=== PATIENT | male | born 1950 | race Caucasian/White ===

== ENCOUNTER 2018-11-07 12:05 | Inpatient (IN) | payer MEDICARE, OTHER ==
[~2018-11-07] VITALS: Ht 172.7 cm; Wt 69.1 kg
[2018-11-07] VITALS (12 sets, daily range): BP systolic 62–108; BP diastolic 38–53
--- NOTE | 2018-11-07 12:05 | NUR ---
ED Nurse Note: Pt brought in by ambulance from [facility] due to hypotension of SBP 60. Per EMS pt was also sating around 88% in the residential then pt vomited. Pt is trach dependent. Pt is awake but with flat affect. Mild respiratory distress noted with increased effort in breathing. Observed distended abdomen with G tube in place.
--- NOTE | 2018-11-07 12:07 | NUR ---
Pt came in from facility due to desaturation and vomiting. Placed pt on AC 14 400 100% +5 per previous settings. Pt has copious amounts of secretions and needs frequent sxn. Will continue to monitor.
--- NOTE | 2018-11-07 12:07 | NUR ---
Pt came in due to desaturation and vomiting. Placed pt on same vent settings as facility and increased FiO2 100%, Pt currently on AC 12 400 100% =%. Pt has copious secretions and needs frequent sxn. Will continue to monitor. Addendum: 11/07/18 at 1420 by LORENA GARZA RT Amended: Links added.
--- NOTE | 2018-11-07 12:35 | Emergency Room Report ---
History of Present Illness General Chief Complaint: Altered Level of Consciousness Present Illness HPI Disclaimer: Please note that this report is being documented using DRAGON technology. This can lead to erroneous entry secondary to incorrect interpretation by the dictating instrument. HPI: This is a 68-year-old male with a history of chronic respiratory failure status post tracheostomy, dysphagia status post G-tube, anemia, alcohol abuse presenting from his nursing facility for evaluation of hypoxia and vomiting. Patient was reported to have desaturated on his ventilator today to the mid 80s. He also had an episode of emesis and appears to have distended abdomen. The patient is nonverbal. They note some decreased alertness and change in his mental status there is unclear what his baseline mentation is. No prior admissions at this facility. PMH: Respiratory failure, dysphagia, anemia, alcohol abuse noted on transfer paperwork PSH: Tracheostomy, gastrostomy Allergies: None listed Social Hx: History of alcohol abuse noted in transfer paperwork Allergies: Coded Allergies: No Known Allergies (Unverified , 11/07/18) Review of Systems All Other Systems: limited - Cannot obtain due to clinical condition Physical Exam Vital Signs Date Time Temp Pulse Resp B/P (MAP) Pulse Ox O2 Delivery O2 Flow Rate FiO2 11/07/18 11:55 116 28 72/42 (52) 72 Mechanical Ventilator 11/07/18 12:05 97.1 11/07/18 12:05 100 General: Lethargic, no verbal responses, hypotensive and tachycardic HEENT: NC/AT. Pupils are equal, round, reactive bilaterally. No gaze deviation. Very dry mucous membranes. Neck: Trach in place with purulent secretions in the tubing. No surrounding bleeding or erythema Cardiovascular: Tachycardic. S1 and S2 normal. No murmur appreciated Resp: Purulent secretions in ventilator tubing. Coarse rhonchi in all lung turner. Tachypnea, respiratory rate in the 30s Abdomen: Abdomen is distended. No fluid wave. G-tube in place without surrounding leakage or bleeding. Skin: Intact. No abrasions, laceration or rash over the exposed skin MSK: No obvious deformity. Neuro: GCS 6 Procedures Critical Care Time Critical Care Time Total critical care time: Approximately 45 minutes Due to a high probability of clinically significant, life threatening deterioration, the patient required the highest level of preparedness to intervene emergently and I personally spent this critical care time directly and personally managing the patient. This critical care time included obtaining a history, examining the patient, pulse oximetry, ordering and reviewing studies , ordering treatments, evaluating response to treatment and updating management plan as needed, frequent reassessment and discussion with other providers as well as arranging for ultimate disposition. This critical to care time was performed to assess and manage the high probability of life-threatening deterioration that could result in multiorgan failure. This critical care time is separate from the separately billable procedures and treating other patients. Medical Decision Making Diagnostic Impression: Primary Impression: Sepsis Additional Impressions: Pneumonia Acidosis Respiratory failure AMS (altered mental status) Anemia ER Course 68-year-old trach dependent G-tube dependent male presents from nursing facility for evaluation of altered mental status, hypoxia and vomiting. He arrives tachycardic and hypotensive but afebrile. Differential includes but is not limited to septic shock, pneumonia, bronchitis, CHF exacerbation, COPD, ACS , abdominal obstruction, intra-abdominal infection such as abscess, viral syndrome, mucous plug, pneumothorax. We will start broad work-up with sepsis fluids and monitor closely for responsiveness. He will be treated empirically with IV antibiotics, cultures sent, broad lab work and will send for CT scan of the head and of the torso given concern for both an infective process in the chest and also possible obstruction or infection in the abdomen. He will require admission to the ICU Laboratory Tests Test 11/07/18 12:00 11/07/18 12:24 11/07/18 12:30 White Blood Count 14.7 K/UL (4.8-10.8) H Red Blood Count 3.26 M/UL (4.70-6.10) L Hemoglobin 9.7 G/DL (14.2-18.0) L Hematocrit 30.5 % (42.0-52.0) L Mean Corpuscular Volume 94 FL (80-99) Mean Corpuscular Hemoglobin 29.8 PG (27.0-31.0) Mean Corpuscular Hemoglobin Concent 31.8 G/DL (32.0-36.0) L Red Cell Distribution Width 15.1 % (11.6-14.8) H Platelet Count 501 K/UL (150-450) H Mean Platelet Volume 5.3 FL (6.5-10.1) L Neutrophils (%) (Auto) % (45.0-75.0) Lymphocytes (%) (Auto) % (20.0-45.0) Monocytes (%) (Auto) % (1.0-10.0) Eosinophils (%) (Auto) % (0.0-3.0) Basophils (%) (Auto) % (0.0-2.0) Differential Total Cells Counted 100 Neutrophils % (Manual) 84 % (45-75) H Lymphocytes % (Manual) 6 % (20-45) L Monocytes % (Manual) 9 % (1-10) Eosinophils % (Manual) 0 % (0-3) Basophils % (Manual) 0 % (0-2) Band Neutrophils 1 % (0-8) Platelet Estimate Increased H Platelet Morphology Normal Anisocytosis 1+ Prothrombin Time 10.9 SEC (9.30-11.50) Prothrombin Time INR 1.0 (0.9-1.1) PTT 35 SEC (23-33) H Sodium Level 141 MMOL/L (136-145) Potassium Level 4.4 MMOL/L (3.5-5.1) Chloride Level 102 MMOL/L (98-107) Carbon Dioxide Level 35 MMOL/L (21-32) H Anion Gap 4 mmol/L (5-15) L Blood Urea Nitrogen 21 mg/dL (7-18) H Creatinine 1.2 MG/DL (0.55-1.30) Estimate Glomerular Filtration Rate 59.9 mL/min (>60) Glucose Level 185 MG/DL (74-106) H Lactic Acid Level 2.40 mmol/L (0.4-2.0) H Calcium Level 8.1 MG/DL (8.5-10.1) L Phosphorus Level 5.6 MG/DL (2.5-4.9) H Magnesium Level 1.9 MG/DL (1.8-2.4) Total Bilirubin 0.7 MG/DL (0.2-1.0) Aspartate Amino Transferase (AST) 25 U/L (15-37) Alanine Aminotransferase (ALT) 22 U/L (12-78) Alkaline Phosphatase 84 U/L (46-116) Total Creatine Kinase 21 U/L (26-308) L Creatine Kinase MB 1.3 NG/ML (0.0-3.6) Creatine Kinase MB Relative Index 6.1 Troponin I 0.001 ng/mL (0.000-0.056) Pro-B-Type Natriuretic Peptide 4640 pg/mL (0-125) H Total Protein 6.3 G/DL (6.4-8.2) L Albumin 1.7 G/DL (3.4-5.0) L Globulin 4.6 g/dL Albumin/Globulin Ratio 0.4 (1.0-2.7) L Arterial Blood pH 7.095 (7.350-7.450) Arterial Blood Partial Pressure CO2 118.0 mmHg (35.0-45.0) *H Arterial Blood Partial Pressure O2 63.1 mmHg (75.0-100.0) L Arterial Blood HCO3 35.4 mmol/L (22.0-26.0) H Arterial Blood Oxygen Saturation 86.2 % (95-100) *L Arterial Blood Base Excess 3.7 (-2-2) H Pawan Test Positive Urine Color Yellow Urine Appearance Clear Urine pH 5 (4.5-8.0) Urine Specific Wray 1.020 (1.005-1.035) Urine Protein 3+ (NEGATIVE) H Urine Glucose (UA) Negative (NEGATIVE) Urine Ketones Negative (NEGATIVE) Urine Blood Negative (NEGATIVE) Urine Nitrite Negative (NEGATIVE) Urine Bilirubin Negative (NEGATIVE) Urine Urobilinogen 1 MG/DL (0.0-1.0) H Urine Leukocyte Esterase 1+ (NEGATIVE) H Urine RBC 2-4 /HPF (0 - 0) H Urine WBC 0-2 /HPF (0 - 0) Urine Squamous Epithelial Cells Occasional /LPF Urine Amorphous Sediment Occasional /LPF (NONE) Urine Bacteria Few /HPF (NONE) EKG Diagnostic Results EKG Time: 12:09 Rate: tachycardiac Rhythm: NSR ST Segments: no acute changes Other Impression Sinus tachycardia, normal axis, slightly prolonged QTC at [address] segment changes Rhythm Strip Diag. Results Rhythm Strip Time: 12:09 EP Interpretation: yes Rate: 100s Rhythm: NSR, no PVC's, no ectopy Chest X-Ray Diagnostic Results Chest X-Ray Diagnostic Results : # of Views/Limited/Complete: 1 View Indication: Shortness of Breath EP Interpretation: Yes Interpretation: other - Diffuse infiltrate in the right lung Impression: Other - Right sided infiltrate concerning for pneumonia with possible effusion Electronically Signed by: Electronically signed by Dr. Varun Villarreal Reevaluation Time: 13:37 Last Vital Signs Date Time Temp Pulse Resp B/P (MAP) Pulse Ox O2 Delivery O2 Flow Rate FiO2 11/07/18 11:55 116 28 72/42 (52) 72 Mechanical Ventilator Reevaluation Impression Responded well to fluids, blood pressure is improving. Remains tachycardic. Large infiltrate in the right lung concerning for pneumonia. Patient is received antibiotics and blood cultures are sent. Head CT shows chronic age- related changes and old parietal and right frontal infarct but no evidence of acute bleed or mass. CT of the torso is pending to better evaluate the infiltrate in the right lung as well as his abdominal distention. Patient is admitted to the ICU. Will be transferred as soon as CT scan is completed unless significant pathology requiring surgical intervention is identified at which point surgery will be consulted and admitting physicians updated. Patient was signed out to Dr. Estrada pending CT results Disposition: ADMITTED INPATIENT Condition: Critical Varun Villarreal MD Nov 07, 2018 12:35
[2018-11-07] MEDS ORDERED: Vancomycin 1 GM in NS 275 ML IV ONE (12:45)
[2018-11-07] MEDS ORDERED: Piperacillin/Tazobactam 3.375 GM in NS 110 ML IVPB ONE (12:45)
[2018-11-07] MEDS ORDERED: Solu-MEDROL 125mg Inj IVP ONE (12:45)
[2018-11-07 12:49] LABS: ANION GAP 4 mmol/L (5-15); BLOOD UREA NITROGEN 21 mg/dL (7-18); CALCIUM 8.1 MG/DL (8.5-10.1); CARBON DIOXIDE 35 MMOL/L (21-32); CHLORIDE 102 MMOL/L (98-107); CREATININE 1.2 MG/DL (0.55-1.30); POTASSIUM 4.4 MMOL/L (3.5-5.1); SODIUM 141 MMOL/L (136-145)
[2018-11-07 12:53] LABS: HEMATOCRIT 30.5 % (42.0-52.0); HEMOGLOBIN 9.7 G/DL (14.2-18.0); MEAN CORPUSCULAR VOLUME 94 FL (80-99); PLATELET COUNT 501 K/UL (150-450); RED BLOOD COUNT 3.26 M/UL (4.70-6.10); RED CELL DISTRIBUTION WIDTH 15.1 % (11.6-14.8); WHITE BLOOD COUNT 14.7 K/UL (4.8-10.8)
[2018-11-07 13:03] LABS: ALANINE AMINOTRANSFERASE 22 U/L (12-78); ALBUMIN 1.7 G/DL (3.4-5.0); ALBUMIN/GLOBULIN RATIO 0.4 (1.0-2.7); ALKALINE PHOSPHATASE 84 U/L (46-116); ASPARTATE AMINO TRANSFERASE 25 U/L (15-37); BILIRUBIN,TOTAL 0.7 MG/DL (0.2-1.0); CKMB 1.3 NG/ML (0.0-3.6); CREATINE KINASE 21 U/L (26-308); PHOSPHORUS 5.6 MG/DL (2.5-4.9)
[2018-11-07 13:03] LABS: APPEARANCE,URINE CLEAR; BILIRUBIN, URINE NEGATIVE (NEGATIVE); COLOR,URINE YELLOW; GLUCOSE, URINE (UA) NEGATIVE (NEGATIVE); KETONES,URINE NEGATIVE (NEGATIVE); LEUKOCYTE ESTERASE ,URINE 1+ (NEGATIVE); NITRITE,URINE NEGATIVE (NEGATIVE); PH,URINE 5 (4.5-8.0); PROTEIN,URINE 3+ (NEGATIVE); UROBILINOGEN,URINE 1 MG/DL (0.0-1.0)
--- NOTE | 2018-11-07 13:29 | Diagnostic Imaging Report ---
Indications: Altered mental status Technique: Spiral acquisitions obtained through the brain. Angled axial and coronal 5 x 5 mm slices were reconstructed. Total dose length product 1652 mGycm. CTDI vol(s) 68 mGy. Dose reduction achieved using automated exposure control Comparison: None. Findings: There is age-related enlargement of the ventricles and extra axial CSF spaces. There is an area of encephalomalacia in the anterior left high parietal lobe. No acute intracranial hemorrhage or edema, mass effect, nor midline shift. There is periventricular deep white matter low-attenuation, consistent with chronic microvascular ischemic changes. Normal ralph-white differentiation. There is a small focus of encephalomalacia in the right parasagittal frontal lobe. Visualized orbits are unremarkable. The right sphenoid sinus is opacified. The left sphenoid and right maxillary sinuses demonstrate air-fluid levels. There is also some ethmoid sinus disease. The mastoids are underpneumatized, grossly clear. The calvarium is intact. There is increased attenuation and thickening of the skin in the high left parietal region. 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 Correlate with clinical findings Negative for acute intracranial bleed or mass effect The CT scanner at [facility] is accredited by the [employer] and the scans are performed using protocols designed to limit radiation exposure to as low as reasonably achievable to attain images of sufficient resolution adequate for diagnostic evaluation.
--- NOTE | 2018-11-07 13:31 | Diagnostic Imaging Report ---
Indication: Shortness of breath Technique: One view of the chest Comparison: none Findings: There is extensive right lung parenchymal opacification. There is extensive right lung volume loss. There is pleural thickening on the right. The volume loss results in shift of mediastinum to the right. Interstitial disease is seen throughout the left lung. The left pleural spaces grossly clear. The right hemidiaphragm is elevated. The heart is borderline enlarged. There is a tracheostomy. Prominent bowel gas is demonstrated in the visualized upper abdomen Impression: Extensive right lung infiltrate. Extensive right lung volume loss Left lung interstitial disease. This is nonspecific, could indicate interstitial edema, acute inflammatory changes, chronic post inflammatory change Cardiomegaly Tracheostomy Prominent abdominal bowel gas
--- NOTE | 2018-11-07 13:32 | NUR ---
HAND-OFF: Report given to Curtis FOX.
--- NOTE | 2018-11-07 16:15 | NUR ---
TRANSFER TO FLOOR: Patient transferred to as ordered, per MD DAPHNEY. Report given to RUDDY AWAN. NO Belongings. Family and or S/O informed of transfer.
[2018-11-07] MEDS ORDERED: TYLENOL325 M1 PO (16:20)
[2018-11-07] MEDS ORDERED: NORCO 5-325 TA1 EACH ORAL (16:20)
--- NOTE | 2018-11-07 17:17 | Diagnostic Imaging Report ---
CLINICAL INDICATION:History chronic respiratory failure, status post tracheostomy, dysphagia status post G-tube, alcohol abuse, hypoxia and vomiting. Recent desaturation on ventilator, distended, recent episode of emesis TECHNIQUE: No enteric contrast. IV administration nonionic contrast Spiral acquisitions obtained through the Chest, abdomen, and pelvis. Multiplanar reconstructions were generated. Total dose length product 2827 mGycm. CTDIvol(s) 302 mGy. Radiation dose was minimized using automated exposure control no axillary or chest wall mass or adenopathy. COMPARISON: none FINDINGS Chest: The chest demonstrates extensive dense consolidation of the entire right lung. There is also atelectasis of much of the right lower lobe. There is a small amount of pleural fluid on the right. Extensive although less severe interstitial and airspace opacities are also seen in the left upper and lower lobes, with some areas of consolidated lung, interstitial edema and groundglass parenchymal opacity elsewhere. There is trace pleural fluid on the left. The heart is mildly enlarged. There is a small amount of pericardial effusion laterally. No mediastinal or hilar mass or adenopathy. There is a tracheostomy. The included thyroid is unremarkable. The esophagus is unremarkable. The bones are unremarkable. Abdomen pelvis:There is diffuse distention of the small bowel which is diffusely fluid-filled. Distention extends throughout most of length of the small bowel. The transition point appears to be at the level of the distal ileum in the anterior left lower quadrant. Transition point is somewhat gradual. Circumferential beads of gas in the left upper quadrant small bowel loops raise suspicion for small bowel pneumatosis. However, this is not definitely evident in the portions of small bowel that are likely filled with gas, so could represent so-called pseudopneumatosis related to gas between the bowel wall and small bowel contents. There is no bowel wall thickening demonstrated. The proximal mesenteric vessels are patent, as are the superior mesenteric vein and splenic vein. There is a gastrostomy in place. The cecum is distended. The appendix is normal. There is distention of the rectum with feces and mild wall thickening of the rectum. There is trace free fluid in Morison's pouch. No free intraperitoneal gas. The liver, gallbladder, bile ducts, pancreas, spleen, adrenals are unremarkable. Subcentimeter low-attenuation lesions in the kidneys most likely represent cysts The bones demonstrate mild degenerative spondylosis changes. IMPRESSION: Chest: Extensive consolidation of the right lung, most likely pneumonia. There is also a component of atelectasis. Less extensive but still severe parenchymal opacities on the left, most likely represent pneumonia but could also represent pulmonary edema Small bilateral pleural effusions Cardiomegaly Tracheostomy Abdomen pelvis: Diffuse distention of the small bowel which is diffusely fluid-filled. There is tapering to normal caliber distal ileum. There is also some distention of the cecum. Findings may be on a functional basis, but the possibility of distal small bowel obstruction should also be considered. There is also evidence of small bowel pneumatosis versus pseudopneumatosis. There is no evidence of proximal arterial insufficiency or of mesenteric venous insufficiency Distended rectum with feces, mild wall thickening of the rectum could indicate stercoral proctitis Trace free fluid in Morison's pouch Gastrostomy Incidental finding of degenerative spondylosis Findings discussed by phone with Dr. Long in the emergency room at the time of interpretation. Findings are also discussed by phone with Dr. Conn The CT scanner at [facility] is accredited by the [employer] and the scans are performed using protocols designed to limit radiation exposure to as low as reasonably achievable to attain images of sufficient resolution adequate for diagnostic evaluation.
--- NOTE | 2018-11-07 17:30 | NUR ---
NURSE NOTES: Report received from Curtis FOX. Pt sleepy, nonverbal, responds to pain. Pt is ST on ekg monitor. Pt trache to vent shiley 8, AC 12, TV 450, 100% fiO2 and PEEP 5. GT noted and clamped. Hahn noted and intact with zach urine to gravity. RAC 20 G and LAC 20 G noted. Safety measures in place with bed locked and in lwoest position, side rails x3 up and bed alarm on. Will continue to monitor and continue plan of care.
--- NOTE | 2018-11-07 17:38 | Consultation ---
History of Present Illness General Date patient seen: Nov 07, 2018 Reason for Hospitalization: Altered Level of Consciousness Present Illness HPI 68-year-old male with a history of chronic respiratory failure status post tracheostomy, dysphagia status post G-tube, anemia, alcohol abuse presenting from his nursing facility for evaluation of hypoxia and vomiting. Patient was reported to have desaturated on his ventilator today. He also had an episode of emesis and appears to have distended abdomen. The patient is nonverbal at baseline Surgery called to evaluate. CT scan with possible sbo pt seen, chart reviewed, imaging reviewed with radiology pt hypotensive and tachy in ICU PMH: Respiratory failure, dysphagia, anemia, alcohol abuse noted on transfer paperwork PSH: Tracheostomy, gastrostomy Allergies: None listed Social Hx: History of alcohol abuse noted in transfer paperwork Allergies: Coded Allergies: No Known Allergies (Unverified , 11/07/18) Medication History Scheduled PRN Hydrocodone Bit/Acetaminophen 5-325* ([place] 5-325*), 1 TAB ORAL Q4H PRN for For Pain, (Reported) Miscellaneous Medications Acetaminophen (Tylenol), 325 MG PO, (Reported) Patient History Limited by: medical condition History Provided By: Medical Record, PMD Healthcare decision maker Resuscitation status Advanced Directive on File Past Medical/Surgical History Past Medical/Surgical History: (1) Acidosis (2) Anemia (3) Respiratory failure (4) Pneumonia (5) AMS (altered mental status) (6) Sepsis Review of Systems Review of Symptoms cannot obtain given baseline mental status and non verbal Physical Exam Physical Exam General appearance: alert, cooperative, no distress, appears stated age Head: Normocephalic, without obvious abnormality, atraumatic Eyes: conjunctivae/corneas clear. PERRL, EOM's intact. Fundi benign Throat: Lips, mucosa, and tongue normal. Teeth and gums normal Neck: supple, symmetrical, trachea midline, no adenopathy, thyroid: not enlarged, symmetric, no tenderness/mass/nodules, no carotid bruit and no JVD Lungs: clear to auscultation bilaterally Heart: regular rate and rhythm, S1, S2 normal, no murmur, click, rub or gallop Abdomen: soft, distended non-tender. Bowel sounds normal. No masses, no organomegaly g tube Extremities: extremities normal, atraumatic, no cyanosis or edema Pulses: 2+ and symmetric Skin: Skin color, texture, turgor normal. No rashes or lesions Neurologic: Grossly normal Last 24 Hour Vital Signs Date Time Temp Pulse Resp B/P (MAP) Pulse Ox O2 Delivery O2 Flow Rate FiO2 11/07/18 17:02 102 32 100 11/07/18 15:38 97.5 135 35 108/53 99 Mechanical Ventilator 100 11/07/18 15:16 100 11/07/18 14:50 138 42 100 11/07/18 13:05 133 36 100 11/07/18 12:30 100 11/07/18 12:07 106 38 100 11/07/18 12:05 116 43 Mechanical Ventilator 100 11/07/18 12:05 97.1 116 43 62/41 95 Mechanical Ventilator 11/07/18 11:55 116 28 72/42 (52) 72 Mechanical Ventilator Laboratory Tests Test 11/07/18 12:00 11/07/18 12:24 11/07/18 12:30 11/07/18 13:35 White Blood Count 14.7 K/UL (4.8-10.8) H Red Blood Count 3.26 M/UL (4.70-6.10) L Hemoglobin 9.7 G/DL (14.2-18.0) L Hematocrit 30.5 % (42.0-52.0) L Mean Corpuscular Volume 94 FL (80-99) Mean Corpuscular Hemoglobin 29.8 PG (27.0-31.0) Mean Corpuscular Hemoglobin Concent 31.8 G/DL (32.0-36.0) L Red Cell Distribution Width 15.1 % (11.6-14.8) H Platelet Count 501 K/UL (150-450) H Mean Platelet Volume 5.3 FL (6.5-10.1) L Neutrophils (%) (Auto) % (45.0-75.0) Lymphocytes (%) (Auto) % (20.0-45.0) Monocytes (%) (Auto) % (1.0-10.0) Eosinophils (%) (Auto) % (0.0-3.0) Basophils (%) (Auto) % (0.0-2.0) Differential Total Cells Counted 100 Neutrophils % (Manual) 84 % (45-75) H Lymphocytes % (Manual) 6 % (20-45) L Monocytes % (Manual) 9 % (1-10) Eosinophils % (Manual) 0 % (0-3) Basophils % (Manual) 0 % (0-2) Band Neutrophils 1 % (0-8) Platelet Estimate Increased H Platelet Morphology Normal Anisocytosis 1+ Prothrombin Time 10.9 SEC (9.30-11.50) Prothromb Time International Ratio 1.0 (0.9-1.1) Activated Partial Thromboplast Time 35 SEC (23-33) H Sodium Level 141 MMOL/L (136-145) Potassium Level 4.4 MMOL/L (3.5-5.1) Chloride Level 102 MMOL/L (98-107) Carbon Dioxide Level 35 MMOL/L (21-32) H Anion Gap 4 mmol/L (5-15) L Blood Urea Nitrogen 21 mg/dL (7-18) H Creatinine 1.2 MG/DL (0.55-1.30) Estimat Glomerular Filtration Rate 59.9 mL/min (>60) Glucose Level 185 MG/DL (74-106) H Lactic Acid Level 2.40 mmol/L (0.4-2.0) H 4.20 mmol/L (0.66-2.22) H Calcium Level 8.1 MG/DL (8.5-10.1) L Phosphorus Level 5.6 MG/DL (2.5-4.9) H Magnesium Level 1.9 MG/DL (1.8-2.4) Total Bilirubin 0.7 MG/DL (0.2-1.0) Aspartate Amino Transf (AST/SGOT) 25 U/L (15-37) Alanine Aminotransferase (ALT/SGPT) 22 U/L (12-78) Alkaline Phosphatase 84 U/L (46-116) Total Creatine Kinase 21 U/L (26-308) L Creatine Kinase MB 1.3 NG/ML (0.0-3.6) Creatine Kinase MB Relative Index 6.1 Troponin I 0.001 ng/mL (0.000-0.056) Pro-B-Type Natriuretic Peptide 4640 pg/mL (0-125) H Total Protein 6.3 G/DL (6.4-8.2) L Albumin 1.7 G/DL (3.4-5.0) L Globulin 4.6 g/dL Albumin/Globulin Ratio 0.4 (1.0-2.7) L Arterial Blood pH 7.095 (7.350-7.450) Arterial Blood Partial Pressure CO2 118.0 mmHg (35.0-45.0) *H Arterial Blood Partial Pressure O2 63.1 mmHg (75.0-100.0) L Arterial Blood HCO3 35.4 mmol/L (22.0-26.0) H Arterial Blood Oxygen Saturation 86.2 % (95-100) *L Arterial Blood Base Excess 3.7 (-2-2) H [place] Test Positive Urine Color Yellow Urine Appearance Clear Urine pH 5 (4.5-8.0) Urine Specific [place] 1.020 (1.005-1.035) Urine Protein 3+ (NEGATIVE) H Urine Glucose (UA) Negative (NEGATIVE) Urine Ketones Negative (NEGATIVE) Urine Blood Negative (NEGATIVE) Urine Nitrite Negative (NEGATIVE) Urine Bilirubin Negative (NEGATIVE) Urine Urobilinogen 1 MG/DL (0.0-1.0) H Urine Leukocyte Esterase 1+ (NEGATIVE) H Urine RBC 2-4 /HPF (0 - 0) H Urine WBC 0-2 /HPF (0 - 0) Urine Squamous Epithelial Cells Occasional /LPF Urine Amorphous Sediment Occasional /LPF (NONE) Urine Bacteria Few /HPF (NONE) Height (Feet): 5 Height (Inches): 8.00 Weight (Pounds): 150 Assessment/Plan Problem List: (1) Abdominal distension Assessment & Plan: abd distention possible sbo CT noted as below NPO IV fluids IV Abx resuscitation AM labs CXR AM KUB g tube to suction will follow with recs ICD Codes: R14.0 - Abdominal distension (gaseous) SNOMED: [id number] (2) Sepsis Assessment & Plan: leukocytosis anemia lactic acidosis abnormal labs resp depression abd distention NPO IV fluids IV Abx resuscitation AM labs CXR AM KUB g tube to suction central line will follow with recs thank you Chest: The chest demonstrates extensive dense consolidation of the entire right lung. There is also atelectasis of much of the right lower lobe. There is a small amount of pleural fluid on the right. Extensive although less severe interstitial and airspace opacities are also seen in the left upper and lower lobes, with some areas of consolidated lung, interstitial edema and groundglass parenchymal opacity elsewhere. There is trace pleural fluid on the left. The heart is mildly enlarged. There is a small amount of pericardial effusion laterally. No mediastinal or hilar mass or adenopathy. There is a tracheostomy. The included thyroid is unremarkable. The esophagus is unremarkable. The bones are unremarkable. Abdomen pelvis:There is diffuse distention of the small bowel which is diffusely fluid-filled. Distention extends throughout most of length of the small bowel. The transition point appears to be at the level of the distal ileum in the anterior left lower quadrant. Transition point is somewhat gradual. Circumferential beads of gas in the left upper quadrant small bowel loops raise suspicion for small bowel pneumatosis. However, this is not definitely evident in the portions of small bowel that are likely filled with gas, so could represent so-called pseudopneumatosis related to gas between the bowel wall and small bowel contents. There is no bowel wall thickening demonstrated. The proximal mesenteric vessels are patent, as are the superior mesenteric vein and splenic vein. There is a gastrostomy in place. The cecum is distended. The appendix is normal. There is distention of the rectum with feces and mild wall thickening of the rectum. There is trace free fluid in Morison's pouch. No free intraperitoneal gas. The liver, gallbladder, bile ducts, pancreas, spleen, adrenals are unremarkable. Subcentimeter low-attenuation lesions in the kidneys most likely represent cysts The bones demonstrate mild degenerative spondylosis changes. IMPRESSION: Chest: Extensive consolidation of the right lung, most likely pneumonia. There is also a component of atelectasis. Less extensive but still severe parenchymal opacities on the left, most likely represent pneumonia but could also represent pulmonary edema Small bilateral pleural effusions Cardiomegaly Tracheostomy Abdomen pelvis: Diffuse distention of the small bowel which is diffusely fluid-filled. There is tapering to normal caliber distal ileum. There is also some distention of the cecum. Findings may be on a functional basis, but the possibility of distal small bowel obstruction should also be considered. There is also evidence of small bowel pneumatosis versus pseudopneumatosis. There is no evidence of proximal arterial insufficiency or of mesenteric venous insufficiency Distended rectum with feces, mild wall thickening of the rectum could indicate stercoral proctitis Trace free fluid in Morison's pouch Gastrostomy Incidental finding of degenerative spondylosis ICD Codes: A41.9 - Sepsis, unspecified organism SNOMED: 73132029 Kevin Conn Nov 07, 2018 17:38
[2018-11-07] MEDS ORDERED: Lidocaine 1% 10mg/ml/Epi 0.005mg/ml 30ml vial INJ ONE (17:49)
--- NOTE | 2018-11-07 18:04 | Operative Note - PDOC ---
Operative Note Operative Note Date of Operation/Procedure: Nov 07, 2018 Pre-op Diagnosis: sepsis hypotension abd distention tachycardia Procedure: Right subclavian central venous catheter insertion Post-op Diagnosis: same as pre-op Surgeon: Senia Anesthesiologist: n/a Anesthesia: local Specimen: none Complications: none Condition: unstable Fluids: n/a Estimated Blood Loss: minimal Drains: none Implant(s) used?: Yes - triple lumen central line Indications for Procedure 68M sepsis, hypotension, tachycardic, dehydrated, lactic acidosis, abd distention. Emergency central line indicated and recommended patient unable to consent full code per report line medically necessary Description of Procedure Patient placed supine in trendelenberg position. right chest wall prepped and draped in standard surgical fashion. local 1% lido with epi infiltrated. finder needle used and right subclavian vein cannulated on first attempt. good venous flow noted. guidewire placed and needle removed. small skin incision made around wire and dilator used. triple lumen catheter placed over guidewire without complication. wire discarded. all ports flushed and aspirated without complicated. line sutured in place and dressings applied. cxr ordered Kevin Conn Nov 07, 2018 18:04
[2018-11-07] MEDS ORDERED: Miralax 17gm pkt ORAL PRN (18:15)
[2018-11-07] MEDS ORDERED: Morphine Sulfate 4mg/ml Inj (IV USE ONLY) IVP PRN (18:15)
[2018-11-07] MEDS ORDERED: Albuterol/Ipratropium 3ml neb HHN PRN (18:15)
--- NOTE | 2018-11-07 18:43 | NUR ---
NURSE NOTES: Dr Conn here to see pt. Dr inserted Right subclavian central line. Xray verfied placement. Will continue to monitor.
--- NOTE | 2018-11-07 19:06 | NUR ---
RESPIRATORY NOTE: Received pt on AC 12, 450VT, 100%, PEEP +5. Pt is trach-dependent w/ a cuffed, Portex 8 Blueline Suction tube. Pt is asleep/disoriented/responds to stimuli. B/S yeison. rhonchi, sxn small to moderate amounts of thick, menendez-yellow secretions w/ occasional blood. FiO2 titrated to 80% at this time. Vent plugged into red outlet, ambubag at bedside. Pt in no apparent distress at this time. Will continue to monitor pt.
--- NOTE | 2018-11-07 19:17 | NUR ---
HAND-OFF: Report given to Beau FOX.
--- NOTE | 2018-11-07 19:30 | NUR ---
NURSE NOTES: Received patient from Paty Combs. Received pt on AC 12, 450VT, 80%, PEEP +5. Pt is trach-dependent w/ a cuffed, Portex 8 Blueline Suction tube. Pt is asleep/disoriented but responds to stimuli, and nods head when spoked to in [place], B/S yeison. rhonchi, sxn small to moderate amounts of thick, menendez-yellow secretions w/ occasional blood. Patient has Right subclavian TLC currently inserted by for possible pressors. Current BP is 85/44, HR [address] ST, SpO2 98%, and temperature of 101.3F, cooling measures initiated. Patient also has R/L AC 20G. NS at 125ml/hr infusing via central line. Heels offloaded. Bed armed Vent plugged into red outlet, ambubag at bedside. Pt in no apparent distress at this time. Will continue to monitor pt.
--- NOTE | 2018-11-07 20:00 | NUR ---
NURSE NOTES: Patient repositioned and adjusted pillows. No residual from GT. Suctioned patient. Lactic Acid drawn and sent to lab. Sputum Culture collected and also sent to lab. Tube feeds started. Will continue to monitor.
[2018-11-07] MEDS: Heparin 5000 units/ml inj SUBQ SCH (20:39)
--- NOTE | 2018-11-07 21:07 | NUR ---
NURSE NOTES: Rechecked temperature after Tylenol 650mg given. Temperature now is 100.8F. Suctioned patient, tenacious clear/yellowish with some red specks noted. Oral care given. Patient able to knod his head to simple verbal commands.
--- NOTE | 2018-11-07 22:03 | NUR ---
NURSE NOTES: low intermittent suction via gt.
--- NOTE | 2018-11-07 22:15 | NUR ---
NURSE NOTES: Started patient on pressors as patients BP continued to be hypotensive after several rounds of recycling blood pressure.
--- NOTE | 2018-11-07 22:30 | NUR ---
NURSE NOTES: Hold feeds for now.
[2018-11-08] VITALS (28 sets, daily range): BP systolic 96–160; BP diastolic 48–93
--- NOTE | 2018-11-08 | NUR ---
NURSE NOTES: Repositioned and given oral care. Suctioned patient, lots of secretions. Feeds remains on hold for now. Pressors ongoing. Patient is awake and alert, able to knod to simple verbal commands. Temperature now is 99.3F
[2018-11-08] MEDS: Vancomycin 750mg/NS 275ml IVPB SCH ×4 (01:21→13:47)
--- NOTE | 2018-11-08 02:00 | NUR ---
NURSE NOTES: Repositioned patient and suctioned. Lots of secretions from patient. Feeds remains on hold. Patient is awake and responsive. Making good urine output. Pressors ongoing and titrating accordingly. No respiratory distress at this time. Will continue to monitor.
--- NOTE | 2018-11-08 04:00 | NUR ---
NURSE NOTES: Patient cleaned, new linen applied and repositioned patient, Mary-care provided again. Deep and oral suction provided. Oral care given. AM lab drawn and sent to lab. Patient remains Sinus tachy. Currently HR is 120. Temperature is 99.5F. RR 24. No acute distress at this time. Pressors ongoing. Will continue to monitor.
[2018-11-08 05:23] LABS: HEMOGLOBIN 8.9 G/DL (14.2-18.0); MEAN CORPUSCULAR VOLUME 92 FL (80-99); PLATELET COUNT 343 K/UL (150-450); RED BLOOD COUNT 3.05 M/UL (4.70-6.10); RED CELL DISTRIBUTION WIDTH 15.5 % (11.6-14.8); WHITE BLOOD COUNT 13.3 K/UL (4.8-10.8)
[2018-11-08 05:31] LABS: ALANINE AMINOTRANSFERASE 24 U/L (12-78); ALBUMIN 1.7 G/DL (3.4-5.0); ALBUMIN/GLOBULIN RATIO 0.4 (1.0-2.7); ALKALINE PHOSPHATASE 82 U/L (46-116); ANION GAP 6 mmol/L (5-15); ASPARTATE AMINO TRANSFERASE 22 U/L (15-37); BLOOD UREA NITROGEN 29 mg/dL (7-18); CALCIUM 7.4 MG/DL (8.5-10.1); CARBON DIOXIDE 31 MMOL/L (21-32); CHLORIDE 107 MMOL/L (98-107); CREATININE 1.3 MG/DL (0.55-1.30); PHOSPHORUS 4.4 MG/DL (2.5-4.9); POTASSIUM 4.6 MMOL/L (3.5-5.1); SODIUM 144 MMOL/L (136-145)
--- NOTE | 2018-11-08 06:00 | NUR ---
NURSE NOTES: Patient repositioned, patient continues to have low grade fever, currently its 99.7F. Cooling measure still in effect. No acute changes at this time, pressors being titrated down, Will continue to monitor.
[2018-11-08] MEDS: LORazepam Inj 2mg/ml 1ml IV PRN ×3 (06:01→23:57)
--- NOTE | 2018-11-08 07:10 | NUR ---
HAND-OFF: Report given to Garret RN. Endorsed patient info and plan of care to Garret RN, patient remains stable at this this.
--- NOTE | 2018-11-08 07:13 | NUR ---
NURSE NOTES: Report received from Beau FOX. Pt sleepy, nonverbal, nods yes/no, and follows simple commands. Pt is ST 100s, on media monitor. Pt trache to vent portex 8, AC 12, TV 450, 60% fiO2 and PEEP 5. GT noted and clamped. Hahn noted and intact with zach urine to gravity. Right subclavian central line with levophed running at 2 mcg/hr and NS @ 125 cc/hr. RAC 20 G and LAC 20 G noted. Safety measures in place with bed locked and in lowest position, side rails x3 up and bed alarm on. Will continue to monitor and continue plan of care.
[2018-11-08] MEDS: Pantoprazole Inj IV SCH (08:21)
[2018-11-08] MEDS: Heparin 5000 units/ml inj SUBQ SCH ×2 (08:21→20:19)
--- NOTE | 2018-11-08 09:00 | NUR ---
NURSE NOTES: Levophed turned off BP 110s/50s. Pt turned and repositioned. Will continue to monitor.
--- NOTE | 2018-11-08 10:25 | Pulmonolgy Critical Care Note ---
Critical Care - Asmt/Plan Problems: (1) Nosocomial pneumonia (2) Sepsis (3) Ventilator dependent (4) Schizophrenia (5) Feeding by G-tube (6) Chronic respiratory failure Respiratory: monitor respiratory rate, adjust FIO2, CXR Cardiac: continue to monitor HR/BP Renal: F/U I&O, keep IV fluid Infectious Disease: check cultures, continue antibiotics Gastrointestinal: continue feedings/current rate Endocrine: monitor blood sugar, check TSH Neurologic: PRN Ativan Notes Reviewed: cardio, renal Discussed with: nurses, consultants, caser uptransaction manager - Objective Last 24 Hour Vital Signs Date Time Temp Pulse Resp B/P (MAP) Pulse Ox O2 Delivery O2 Flow Rate FiO2 11/08/18 10:00 117 26 112/61 (78) 100 11/08/18 09:00 119 25 108/56 (73) 11/08/18 08:46 121 25 45 11/08/18 08:00 124 11/08/18 08:00 50.0 11/08/18 08:00 Mechanical Ventilator 11/08/18 08:00 100.0 121 26 116/58 (77) 100 11/08/18 07:18 118 19 60 11/08/18 07:00 98/54 11/08/18 07:00 102 23 98/54 (69) 100 11/08/18 06:00 96/52 11/08/18 06:00 106 21 96/52 (67) 100 11/08/18 05:03 124 26 60 11/08/18 05:00 119 25 109/60 (76) 100 11/08/18 05:00 109/59 11/08/18 04:30 121 23 101/65 (77) 99 11/08/18 04:00 99.5 122 25 114/61 (78) 100 11/08/18 04:00 121 11/08/18 04:00 114/61 11/08/18 04:00 50.0 11/08/18 04:00 Mechanical Ventilator 11/08/18 03:06 125 24 60 11/08/18 03:00 124 25 118/60 (79) 100 11/08/18 03:00 118/60 11/08/18 02:30 122 24 123/68 (86) 100 11/08/18 02:00 119 22 119/85 (96) 100 11/08/18 02:00 119/85 10/2/19 01:30 119 22 119/61 (80) 99 11/08/18 01:02 119 26 60 11/08/18 01:00 118/58 11/08/18 01:00 122 24 118/58 (78) 99 11/08/18 00:30 119 23 100/48 (65) 100 11/08/18 00:00 120 11/08/18 00:00 60.0 11/08/18 00:00 85/39 11/08/18 00:00 99.3 118 23 104/51 (68) 100 11/08/18 00:00 Mechanical Ventilator 11/07/18 23:30 114 24 85/39 (54) 100 11/07/18 23:00 88/43 11/07/18 23:00 112 25 97/48 (64) 100 11/07/18 22:54 115 25 70 11/07/18 22:30 113 24 102/49 (66) 100 11/07/18 22:13 88/49 11/07/18 22:00 117 25 88/43 (58) 100 11/07/18 21:30 119 25 80/38 (52) 100 11/07/18 21:30 70.0 11/07/18 21:20 125 25 70 11/07/18 21:07 100.8 11/07/18 21:00 100.8 120 25 83/44 (57) 100 11/07/18 20:30 122 25 92/42 (59) 100 11/07/18 20:00 Mechanical Ventilator 11/07/18 20:00 126 11/07/18 20:00 80.0 11/07/18 20:00 101.3 120 26 92/42 (59) 100 11/07/18 19:00 117 85/44 (58) 11/07/18 19:00 119 26 80 11/07/18 18:52 86/41 11/07/18 18:01 100.1 123 86/41 (56) 11/07/18 17:53 100.0 11/07/18 17:17 Mechanical Ventilator 11/07/18 17:02 102 32 100 11/07/18 17:00 122 11/07/18 16:45 98.7 130 30 108/51 Mechanical Ventilator 11/07/18 15:38 97.5 135 35 108/53 99 Mechanical Ventilator 100 11/07/18 15:16 100 11/07/18 14:50 138 42 100 11/07/18 13:05 133 36 100 11/07/18 12:30 100 11/07/18 12:07 106 38 100 11/07/18 12:05 116 43 Mechanical Ventilator 100 11/07/18 12:05 97.1 116 43 62/41 95 Mechanical Ventilator 11/07/18 11:55 116 28 72/42 (52) 72 Mechanical Ventilator Status: sedated Condition: critical HEENT: atraumatic Neck: full ROM Heart: HR/BP stable Abdomen: soft, active bowel sounds Extremities: no C/C/E Micro: Microbiology Date/Time Source Procedure Growth Status 11/07/18 19:30 Sputum Gram Stain - Final Resulted 11/07/18 19:30 Sputum Sputum Culture Pending Resulted 11/07/18 12:30 Indwelling Cath Urine Culture - Preliminary NO GROWTH Resulted Critical Care - Subjective ROS Limited/Unobtainable: Yes Interval Events: 68-year-old male with a history of chronic respiratory failure status post tracheostomy, G-tube, anemia, alcohol abuse presented to ER from his nursing facility for evaluation of hypoxia and vomiting. He also had an episode of emesis and appears to have distended abdomen. His CXR and CT of chest showed extensive R side consolidation FI02: 45 Vent Support Breath Rate: 12 Vent Support Mode: AC Vent Tidal Volume: 450 Sputum Amount: Small PEEP: 5.0 PIP: 34 Tube Feeding Amount: 10 I&O: Intake and Output 11/07/18 11/08/18 18:59 06:59 Intake Total 2085.0 ml Output Total 300 ml 605 ml Balance -300 ml 1480.0 ml Intake Free Water 20 ml IV Total 2035.0 ml Tube Feeding 30 ml Output Urine Total 300 ml 605 ml # Voids 1 # Bowel Movements 2 CXR: R infiltrate Labs: Laboratory Tests Test 11/07/18 12:00 11/07/18 12:24 11/07/18 12:30 11/07/18 13:35 White Blood Count 14.7 K/UL (4.8-10.8) H Red Blood Count 3.26 M/UL (4.70-6.10) L Hemoglobin 9.7 G/DL (14.2-18.0) L Hematocrit 30.5 % (42.0-52.0) L Mean Corpuscular Volume 94 FL (80-99) Mean Corpuscular Hemoglobin 29.8 PG (27.0-31.0) Mean Corpuscular Hemoglobin Concent 31.8 G/DL (32.0-36.0) L Red Cell Distribution Width 15.1 % (11.6-14.8) H Platelet Count 501 K/UL (150-450) H Mean Platelet Volume 5.3 FL (6.5-10.1) L Neutrophils (%) (Auto) % (45.0-75.0) Lymphocytes (%) (Auto) % (20.0-45.0) Monocytes (%) (Auto) % (1.0-10.0) Eosinophils (%) (Auto) % (0.0-3.0) Basophils (%) (Auto) % (0.0-2.0) Differential Total Cells Counted 100 Neutrophils % (Manual) 84 % (45-75) H Lymphocytes % (Manual) 6 % (20-45) L Monocytes % (Manual) 9 % (1-10) Eosinophils % (Manual) 0 % (0-3) Basophils % (Manual) 0 % (0-2) Band Neutrophils 1 % (0-8) Platelet Estimate Increased H Platelet Morphology Normal Anisocytosis 1+ Prothrombin Time 10.9 SEC (9.30-11.50) Prothromb Time International Ratio 1.0 (0.9-1.1) Activated Partial Thromboplast Time 35 SEC (23-33) H Sodium Level 141 MMOL/L (136-145) Potassium Level 4.4 MMOL/L (3.5-5.1) Chloride Level 102 MMOL/L (98-107) Carbon Dioxide Level 35 MMOL/L (21-32) H Anion Gap 4 mmol/L (5-15) L Blood Urea Nitrogen 21 mg/dL (7-18) H Creatinine 1.2 MG/DL (0.55-1.30) Estimat Glomerular Filtration Rate 59.9 mL/min (>60) Glucose Level 185 MG/DL (74-106) H Lactic Acid Level 2.40 mmol/L (0.4-2.0) H 4.20 mmol/L (0.66-2.22) H Calcium Level 8.1 MG/DL (8.5-10.1) L Phosphorus Level 5.6 MG/DL (2.5-4.9) H Magnesium Level 1.9 MG/DL (1.8-2.4) Total Bilirubin 0.7 MG/DL (0.2-1.0) Aspartate Amino Transf (AST/SGOT) 25 U/L (15-37) Alanine Aminotransferase (ALT/SGPT) 22 U/L (12-78) Alkaline Phosphatase 84 U/L (46-116) Total Creatine Kinase 21 U/L (26-308) L Creatine Kinase MB 1.3 NG/ML (0.0-3.6) Creatine Kinase MB Relative Index 6.1 Troponin I 0.001 ng/mL (0.000-0.056) Pro-B-Type Natriuretic Peptide 4640 pg/mL (0-125) H Total Protein 6.3 G/DL (6.4-8.2) L Albumin 1.7 G/DL (3.4-5.0) L Globulin 4.6 g/dL Albumin/Globulin Ratio 0.4 (1.0-2.7) L Arterial Blood pH 7.095 (7.350-7.450) Arterial Blood Partial Pressure CO2 118.0 mmHg (35.0-45.0) *H Arterial Blood Partial Pressure O2 63.1 mmHg (75.0-100.0) L Arterial Blood HCO3 35.4 mmol/L (22.0-26.0) H Arterial Blood Oxygen Saturation 86.2 % (95-100) *L Arterial Blood Base Excess 3.7 (-2-2) H Pawan Test Positive Urine Color Yellow Urine Appearance Clear Urine pH 5 (4.5-8.0) Urine Specific [place] 1.020 (1.005-1.035) Urine Protein 3+ (NEGATIVE) H Urine Glucose (UA) Negative (NEGATIVE) Urine Ketones Negative (NEGATIVE) Urine Blood Negative (NEGATIVE) Urine Nitrite Negative (NEGATIVE) Urine Bilirubin Negative (NEGATIVE) Urine Urobilinogen 1 MG/DL (0.0-1.0) H Urine Leukocyte Esterase 1+ (NEGATIVE) H Urine RBC 2-4 /HPF (0 - 0) H Urine WBC 0-2 /HPF (0 - 0) Urine Squamous Epithelial Cells Occasional /LPF Urine Amorphous Sediment Occasional /LPF (NONE) Urine Bacteria Few /HPF (NONE) Test 11/07/18 20:00 11/08/18 04:00 11/08/18 08:23 Lactic Acid Level 1.70 mmol/L (0.4-2.0) White Blood Count 13.3 K/UL (4.8-10.8) H Red Blood Count 3.05 M/UL (4.70-6.10) L Hemoglobin 8.9 G/DL (14.2-18.0) L Hematocrit 28.0 % (42.0-52.0) L Mean Corpuscular Volume 92 FL (80-99) Mean Corpuscular Hemoglobin 29.3 PG (27.0-31.0) Mean Corpuscular Hemoglobin Concent 31.9 G/DL (32.0-36.0) L Red Cell Distribution Width 15.5 % (11.6-14.8) H Platelet Count 343 K/UL (150-450) Mean Platelet Volume 5.7 FL (6.5-10.1) L Neutrophils (%) (Auto) % (45.0-75.0) Lymphocytes (%) (Auto) % (20.0-45.0) Monocytes (%) (Auto) % (1.0-10.0) Eosinophils (%) (Auto) % (0.0-3.0) Basophils (%) (Auto) % (0.0-2.0) Differential Total Cells Counted 100 Neutrophils % (Manual) 75 % (45-75) Lymphocytes % (Manual) 7 % (20-45) L Monocytes % (Manual) 6 % (1-10) Eosinophils % (Manual) 0 % (0-3) Basophils % (Manual) 0 % (0-2) Band Neutrophils 12 % (0-8) H Platelet Estimate Adequate Platelet Morphology Normal Hypochromasia 2+ Anisocytosis 1+ Sodium Level 144 MMOL/L (136-145) Potassium Level 4.6 MMOL/L (3.5-5.1) Chloride Level 107 MMOL/L (98-107) Carbon Dioxide Level 31 MMOL/L (21-32) Anion Gap 6 mmol/L (5-15) Blood Urea Nitrogen 29 mg/dL (7-18) H Creatinine 1.3 MG/DL (0.55-1.30) Estimat Glomerular Filtration Rate 54.6 mL/min (>60) Glucose Level 100 MG/DL (74-106) Calcium Level 7.4 MG/DL (8.5-10.1) L Phosphorus Level 4.4 MG/DL (2.5-4.9) Total Bilirubin 1.0 MG/DL (0.2-1.0) Aspartate Amino Transf (AST/SGOT) 22 U/L (15-37) Alanine Aminotransferase (ALT/SGPT) 24 U/L (12-78) Alkaline Phosphatase 82 U/L (46-116) Total Protein 6.1 G/DL (6.4-8.2) L Albumin 1.7 G/DL (3.4-5.0) L Globulin 4.4 g/dL Albumin/Globulin Ratio 0.4 (1.0-2.7) L Arterial Blood pH 7.270 (7.350-7.450) Arterial Blood Partial Pressure CO2 63.9 mmHg (35.0-45.0) *H Arterial Blood Partial Pressure O2 120.0 mmHg (75.0-100.0) H Arterial Blood HCO3 28.7 mmol/L (22.0-26.0) H Arterial Blood Oxygen Saturation 97.9 % (95-100) Arterial Blood Base Excess 1.2 (-2-2) Pawan Test Positive Bria Ward MD Nov 08, 2018 10:25
[2018-11-08] MEDS ORDERED: Cefepime HCl 2 GM in D5W 55 ML IVPB SCH ×2 (10:30→11:00)
[2018-11-08] MEDS ORDERED: Amikacin Rx to dose MISC PRN (10:30)
--- NOTE | 2018-11-08 10:44 | Diagnostic Imaging Report ---
Indication: Line placement Comparison: 11/07/2018 at earlier time A single view chest radiograph was obtained. Findings: Right-sided central venous catheters been placed. The tip projects over the right atrial SVC junction in good position. There is no pneumothorax. Extensive airspace opacities and interstitial opacities demonstrated bilaterally worse in the right lung. Heart is enlarged. IMPRESSION: Right central venous catheter in good position. No pneumothorax. No change otherwise
[2018-11-08 11:21] LABS: INR 1.3 (0.9-1.1)
[2018-11-08 11:26] LABS: LACTATE DEHYDROGENASE 320 U/L (81-234)
--- NOTE | 2018-11-08 11:30 | History and Physical Report ---
DATE OF ADMISSION: 11/07/2018 NOTE: POOR AUDIO This is a first admission to [facility] of this 68-year-old patient because of desaturation, O2 saturations 60, and abdominal distention. HISTORY OF PRESENT ILLNESS: The patient is a resident of an extended care facility subacute unit where he has been in stable condition for the last several weeks. He is known to have chronic medical syndrome, but has been stable on current medication. On the date of admission, he developed shortness of breath and tachycardia. and the patient was transferred to [facility] ER. In the ER, he was found to have abdominal distention. He underwent laboratory and imaging studies. The rn surgical pcu was called to assist in management of this case. PAST MEDICAL HISTORY: He has history of alcoholism respiratory failure. He underwent tracheostomy and gastrostomy. He has severe COPD. the patient will be Solu-Cort . ALLERGIES: No known drug allergies. MEDICATIONS: As above. FAMILY HISTORY: Noncontributory. SOCIAL HISTORY: He is single. [employer]SI company . Prior to the multiple jobs. HABITS: The patient smoked one pack a day for many years. history of alcoholism. There is no history of drug abuse. REVIEW OF SYSTEMS: The patient is unable to give any information regarding his state of health. PHYSICAL EXAMINATION: VITAL SIGNS: Blood pressure is 80/78, his pulse is 119, respirations 25, and temperature 101.3. HEENT: Eyes were normal. Pupils were round, equal, and reactive to light. Extraocular movement could not be assessed. Temporal arteries were palpable bilaterally. There was no bilateral temporal wasting. Visual turner to confrontation were neglect and could not be assessed. ENT, mucous membranes were not dehydrated. Auditory canals were clear and tympanic membranes could not be visualized. Nasal cavity was not congested. Nasal septum was intact. Soft palate was free of ulcerations. Pharynx was clear from exudate or tonsillar hypertrophy. Uvula lonnie to phonation. Tongue was moist, midline, and normally papillated. NECK: Supple. There was no goiter. No mass. No lymphadenopathy. There was no JVD. No bruits. Carotid upstroke was 2+. LUNGS: Clear with diffuse decreased breath sounds in both lung turner. HEART: PMI was in the fifth left intercostal space in midclavicular line. Normal S1 and normal S2. There was tachycardia at rest. Sinus tachycardia on monitor. ABDOMEN: Soft and distended with normal bowel sounds. EXTREMITIES: Warm without cyanosis, clubbing, or edema. NEUROLOGICAL: Reflexes in biceps, triceps, and brachioradialis were present. Patellar retinaculum was present. Plantars were in flexion. Cranial nerves II through XII were symmetric and equal. Cerebellar function, there was no tremor. No nystagmus. No extrapyramidal rigidity. Sensory exam to pinprick, cotton touch, and position are grossly normal. Motor strength was 5/5 against resistance in upper and lower extremities in proximal and distal muscles. LABORATORY AND DIAGNOSTIC DATA: His hemoglobin is 9.7, hematocrit was with MCV of 94, WBC of 14.7, and platelets are 101,000. His BUN and creatinine respectively. His sodium is 141, potassium 4.4, chloride 103, CO2 is 35, his glucose is 195, and his calcium was 8.1. SGOT, SGPT, and alkaline phosphatase were normal. Troponin was not detected. ProBNP was 4600. His chest x-ray showed lung disease, cardiomegaly with no infiltrates condition of the right lung, most likely pneumonia. There was a new infiltrate on the left side as well. cardiomegaly and tracheostomy. . CT scan of the brain was negative for acute intracranial bleed. IMPRESSION AND PLAN: The patient with septic shock respiratory failure. Pulmonary cardiology consultants and rn surgical pcu were called to assist in the management of this case. Repeat laboratory tests will be done in the a.m. Pierre Moreno M.D. DR: JUNAID JOB#: [id number] CC:
--- NOTE | 2018-11-08 11:35 | NUR ---
NURSE NOTES: Dr Ward here to see pt. Labs ordered. Will continue to monitor.
[2018-11-08 12:05] LABS: % IRON SATURATION 3 % (15-50); IRON < 5 ug/dL (50-175); TOTAL IRON BINDING CAPACITY 149 ug/dL (250-450)
--- NOTE | 2018-11-08 12:17 | NUR ---
RD ASSESSMENT & RECOMMENDATIONS SEE CARE ACTIVITY FOR COMPLETE ASSESSMENT DAILY ESTIMATED NEEDS: Needs based on Critical Care, Sepsis/ 64kg 22-28 kcals/kg 1899-2380 total kcals 1.2-2 g protein/kg 77-128 g total protein 25-30 mL/kg 6496-1012 total fluid mLs NUTRITION DIAGNOSIS: * Swallowing difficulty R/T respiratory status as evidenced by pt is trach/vent, PEG dep. * Altered nutrition related lab values R/T sepsis, clinical condition as evidenced by elev wbc (13.3), febrile, elev LA (4.2 -> now wnl), elev RR + HR, hypotensive, pressor held at this time. CURRENT TF:Jevity 1.2 @ 30ml/hr x 24 hrs -> held ENTERAL NUTRITION RECOMMENDATIONS: Jevity 1.2 @ 60ml/hr x 24 hrs to provide 1440ml, 1728kcal, 80g prot, 1162ml free water * As medically appropriate and w/ HD stability -> resume TF -> increase goal rate to 60ml/hr x 24 hrs * HOB over 30 degrees/ water flush per MD ADDITIONAL RECOMMENDATIONS: * Calibrated bedscale wt for accurate CBW * Monitor HD stability * Monitor for ability to feed- distended abdomen per MD * Monitor lytes, replete as needed
[2018-11-08] MEDS: AMIKACIN IV SCH (12:38)
[2018-11-08] MEDS: NS IV SCH (12:38)
--- NOTE | 2018-11-08 14:03 | NUR ---
NURSE NOTES: Pt resting comfortably. Trache suctioned. Pt given tylenol for temp 100.3. Will continue to monitor.
[2018-11-08] MEDS ORDERED: Sterile Water Irrig 1000ml IRRIG ONE (16:02)
[2018-11-08] MEDS ORDERED: Tubing IV Secondary IV ONE (16:02)
[2018-11-08] MEDS ORDERED: NS 275ml ONE (16:02)
--- NOTE | 2018-11-08 16:48 | NUR ---
CASE MANGER REVIEW 68 YO BIBA FROM [facility] ALTERED LEVEL OF CONSCIOUS SI SEPSIS, RESPIRATORY FAILURE, TRACH TO VENT HR 116, RR 28, B/P 72/42 Fi O2 45%, AC 12, TV 400 WBC 14.7, RBC 3.26, HGB 9.7, HCT 30.5, LACTIC ACID 4.20 IS NS 200ML IV VANCOMYCIN IV ZOSYN IV ADMITTED TO ICU STATUS ICU STATUS
--- NOTE | 2018-11-08 17:12 | NUR ---
NURSE NOTES: Pt turned and repositioned. Pt suctioned. Will continue to monitor.
--- NOTE | 2018-11-08 17:52 | NUR ---
HAND-OFF: Report given to Joe FOX.
--- NOTE | 2018-11-08 17:53 | NUR ---
NURSE NOTES: Report received from RUDDY Her. Pt is awake and alert x2-3. Sinus tachy 110's on supplies packer. Trach to vent. AC 12, Tv 450, FiO2 45%. P 5. O2 sat 100%. No respiratory distress noted. G-tube in place, receiving Jevity 30cc/hr. No residual noted. Hahn in place draining yellow urine to gravity. IV to left AC G20, right AC G20, and right subclavian TLC patent and asymptomatic. NS is running at 75cc/hr. Bed in lowest position. Side rails x up 3. Will continue to monitor.
--- NOTE | 2018-11-08 18:42 | NUR ---
NURSE NOTES: Dr Moreno here to see the patient. Updated him with pt's current condition. No new orders.
--- NOTE | 2018-11-08 19:23 | NUR ---
HAND-OFF: Report given to RUDDY Yanez.
--- NOTE | 2018-11-08 19:36 | Consultation ---
Consult Note Consult Note # [id number] Levi Quarles MD Nov 08, 2018 19:36
--- NOTE | 2018-11-08 20:00 | NUR ---
NURSE NOTES: Report received from Mari Wharton RN. Pt awake, nonverbal, nods yes/no, responds and follows simple commands. 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 Pt trache to vent portex 8, AC 12, TV 450, 45% fiO2 and PEEP 5. GT noted and feeds Jevity 1.2 at 35ml/hr, Hahn noted and intact with zach urine to gravity. Right subclavian central line NS @ 75 cc/hr. RAC 20 G and LAC 20 G noted. Safety measures in place with bed locked and in lowest position, side rails x3 up and bed alarm on. Will continue to monitor and continue plan of care.
--- NOTE | 2018-11-08 20:10 | Surgery Progress Note ---
Surgery Progress Note Subjective Procedure Performed Right subclavian central venous catheter insertion Additional Comments labs improved with resuscitation exam stable Objective Last 24 Hour Vital Signs Date Time Temp Pulse Resp B/P (MAP) Pulse Ox O2 Delivery O2 Flow Rate FiO2 11/08/18 19:14 105 24 45 11/08/18 19:00 106 26 122/66 (84) 100 11/08/18 18:00 102 30 110/59 (76) 98 11/08/18 17:00 101 23 110/56 (74) 100 11/08/18 16:45 98 20 45 11/08/18 16:00 99.0 100 24 109/58 (75) 100 11/08/18 16:00 50.0 11/08/18 16:00 103 11/08/18 16:00 Mechanical Ventilator 11/08/18 15:16 111 24 45 11/08/18 15:00 108 25 114/57 (76) 100 11/08/18 14:22 99.0 11/08/18 14:00 112 25 115/57 (76) 100 11/08/18 13:04 112 26 45 11/08/18 13:00 108 24 112/77 (89) 100 11/08/18 12:00 110 11/08/18 12:00 100.0 112 24 111/54 (73) 11/08/18 12:00 50.0 11/08/18 12:00 Mechanical Ventilator 11/08/18 11:17 112 27 45 11/08/18 11:00 113 26 117/55 (75) 11/08/18 10:00 117 26 112/61 (78) 100 11/08/18 09:00 119 25 108/56 (73) 11/08/18 08:46 121 25 45 11/08/18 08:00 124 11/08/18 08:00 50.0 11/08/18 08:00 Mechanical Ventilator 11/08/18 08:00 100.0 121 26 116/58 (77) 100 11/08/18 07:18 118 19 60 11/08/18 07:00 98/54 11/08/18 07:00 102 23 98/54 (69) 100 11/08/18 06:00 96/52 11/08/18 06:00 106 21 96/52 (67) 100 11/08/18 05:03 124 26 60 11/08/18 05:00 119 25 109/60 (76) 100 11/08/18 05:00 109/59 11/08/18 04:30 121 23 101/65 (77) 99 11/08/18 04:00 99.5 122 25 114/61 (78) 100 11/08/18 04:00 121 11/08/18 04:00 114/61 11/08/18 04:00 50.0 11/08/18 04:00 Mechanical Ventilator 11/08/18 03:06 125 24 60 11/08/18 03:00 124 25 118/60 (79) 100 11/08/18 03:00 118/60 11/08/18 02:30 122 24 123/68 (86) 100 11/08/18 02:00 119 22 119/85 (96) 100 11/08/18 02:00 119/85 11/08/18 01:30 119 22 119/61 (80) 99 11/08/18 01:02 119 26 60 11/08/18 01:00 118/58 11/08/18 01:00 122 24 118/58 (78) 99 11/08/18 00:30 119 23 100/48 (65) 100 11/08/18 00:00 120 11/08/18 00:00 60.0 11/08/18 00:00 85/39 11/08/18 00:00 99.3 118 23 104/51 (68) 100 11/08/18 00:00 Mechanical Ventilator 11/07/18 23:30 114 24 85/39 (54) 100 11/07/18 23:00 88/43 11/07/18 23:00 112 25 97/48 (64) 100 11/07/18 22:54 115 25 70 11/07/18 22:30 113 24 102/49 (66) 100 11/07/18 22:13 88/49 11/07/18 22:00 117 25 88/43 (58) 100 11/07/18 21:30 119 25 80/38 (52) 100 11/07/18 21:30 70.0 11/07/18 21:20 125 25 70 11/07/18 21:00 100.8 120 25 83/44 (57) 100 11/07/18 20:30 122 25 92/42 (59) 100 I&O Intake and Output 11/07/18 11/08/18 19:00 07:00 Intake Total 125 ml 2092.5 ml Output Total 350 ml 585 ml Balance -225 ml 1507.5 ml Intake Free Water 20 ml IV Total 125 ml 2042.5 ml Tube Feeding 30 ml Output Urine Total 350 ml 585 ml # Voids 1 # Bowel Movements 2 Dressing: other Wound: other Drains: other Cardiovascular: RSR Respiratory: clear, decreased breath sounds Abdomen: soft, non-tender, non-distended, decreased bowel sounds Extremities: no cyanosis, other Laboratory Tests Test 11/08/18 04:00 11/08/18 08:23 11/08/18 11:00 White Blood Count 13.3 K/UL (4.8-10.8) H Red Blood Count 3.05 M/UL (4.70-6.10) L Hemoglobin 8.9 G/DL (14.2-18.0) L Hematocrit 28.0 % (42.0-52.0) L Mean Corpuscular Volume 92 FL (80-99) Mean Corpuscular Hemoglobin 29.3 PG (27.0-31.0) Mean Corpuscular Hemoglobin Concent 31.9 G/DL (32.0-36.0) L Red Cell Distribution Width 15.5 % (11.6-14.8) H Platelet Count 343 K/UL (150-450) Mean Platelet Volume 5.7 FL (6.5-10.1) L Neutrophils (%) (Auto) % (45.0-75.0) Lymphocytes (%) (Auto) % (20.0-45.0) Monocytes (%) (Auto) % (1.0-10.0) Eosinophils (%) (Auto) % (0.0-3.0) Basophils (%) (Auto) % (0.0-2.0) Differential Total Cells Counted 100 Neutrophils % (Manual) 75 % (45-75) Lymphocytes % (Manual) 7 % (20-45) L Monocytes % (Manual) 6 % (1-10) Eosinophils % (Manual) 0 % (0-3) Basophils % (Manual) 0 % (0-2) Band Neutrophils 12 % (0-8) H Platelet Estimate Adequate Platelet Morphology Normal Hypochromasia 2+ Anisocytosis 1+ Sodium Level 144 MMOL/L (136-145) Potassium Level 4.6 MMOL/L (3.5-5.1) Chloride Level 107 MMOL/L (98-107) Carbon Dioxide Level 31 MMOL/L (21-32) Anion Gap 6 mmol/L (5-15) Blood Urea Nitrogen 29 mg/dL (7-18) H Creatinine 1.3 MG/DL (0.55-1.30) Estimat Glomerular Filtration Rate 54.6 mL/min (>60) Glucose Level 100 MG/DL (74-106) Calcium Level 7.4 MG/DL (8.5-10.1) L Phosphorus Level 4.4 MG/DL (2.5-4.9) Total Bilirubin 1.0 MG/DL (0.2-1.0) Aspartate Amino Transf (AST/SGOT) 22 U/L (15-37) Alanine Aminotransferase (ALT/SGPT) 24 U/L (12-78) Alkaline Phosphatase 82 U/L (46-116) Total Protein 6.1 G/DL (6.4-8.2) L Albumin 1.7 G/DL (3.4-5.0) L Globulin 4.4 g/dL Albumin/Globulin Ratio 0.4 (1.0-2.7) L Arterial Blood pH 7.270 (7.350-7.450) Arterial Blood Partial Pressure CO2 63.9 mmHg (35.0-45.0) *H Arterial Blood Partial Pressure O2 120.0 mmHg (75.0-100.0) H Arterial Blood HCO3 28.7 mmol/L (22.0-26.0) H Arterial Blood Oxygen Saturation 97.9 % (95-100) Arterial Blood Base Excess 1.2 (-2-2) Pawan Test Positive Erythrocyte Sedimentation Rate 91 MM/HR (0-20) H Reticulocyte Count 6.0 % (0.5-2.0) H Prothrombin Time 13.8 SEC (9.30-11.50) H Prothromb Time International Ratio 1.3 (0.9-1.1) H Activated Partial Thromboplast Time 40 SEC (23-33) H Iron Level < 5 ug/dL (50-175) L Total Iron Binding Capacity 149 ug/dL (250-450) L Percent Iron Saturation 3 % (15-50) L Unsaturated Iron Binding ug/dL (112-346) Lactate Dehydrogenase 320 U/L (81-234) H Carcinoembryonic Antigen Pending Vitamin B12 Level 735 PG/ML (193-986) Folate 24.2 NG/ML (8.6-58.9) Plan Problems: (1) Abdominal distension Assessment & Plan: abd distention possible sbo CT noted as below NPO IV fluids IV Abx resuscitation AM labs CXR AM KUB g tube to suction will follow with recs (2) Sepsis Assessment & Plan: leukocytosis anemia lactic acidosis abnormal labs resp depression abd distention NPO IV fluids IV Abx resuscitation AM labs CXR AM KUB g tube to suction central line will follow with recs thank you Chest: The chest demonstrates extensive dense consolidation of the entire right lung. There is also atelectasis of much of the right lower lobe. There is a small amount of pleural fluid on the right. Extensive although less severe interstitial and airspace opacities are also seen in the left upper and lower lobes, with some areas of consolidated lung, interstitial edema and groundglass parenchymal opacity elsewhere. There is trace pleural fluid on the left. The heart is mildly enlarged. There is a small amount of pericardial effusion laterally. No mediastinal or hilar mass or adenopathy. There is a tracheostomy. The included thyroid is unremarkable. The esophagus is unremarkable. The bones are unremarkable. Abdomen pelvis:There is diffuse distention of the small bowel which is diffusely fluid-filled. Distention extends throughout most of length of the small bowel. The transition point appears to be at the level of the distal ileum in the anterior left lower quadrant. Transition point is somewhat gradual. Circumferential beads of gas in the left upper quadrant small bowel loops raise suspicion for small bowel pneumatosis. However, this is not definitely evident in the portions of small bowel that are likely filled with gas, so could represent so-called pseudopneumatosis related to gas between the bowel wall and small bowel contents. There is no bowel wall thickening demonstrated. The proximal mesenteric vessels are patent, as are the superior mesenteric vein and splenic vein. There is a gastrostomy in place. The cecum is distended. The appendix is normal. There is distention of the rectum with feces and mild wall thickening of the rectum. There is trace free fluid in Morison's pouch. No free intraperitoneal gas. The liver, gallbladder, bile ducts, pancreas, spleen, adrenals are unremarkable. Subcentimeter low-attenuation lesions in the kidneys most likely represent cysts The bones demonstrate mild degenerative spondylosis changes. IMPRESSION: Chest: Extensive consolidation of the right lung, most likely pneumonia. There is also a component of atelectasis. Less extensive but still severe parenchymal opacities on the left, most likely represent pneumonia but could also represent pulmonary edema Small bilateral pleural effusions Cardiomegaly Tracheostomy Abdomen pelvis: Diffuse distention of the small bowel which is diffusely fluid-filled. There is tapering to normal caliber distal ileum. There is also some distention of the cecum. Findings may be on a functional basis, but the possibility of distal small bowel obstruction should also be considered. There is also evidence of small bowel pneumatosis versus pseudopneumatosis. There is no evidence of proximal arterial insufficiency or of mesenteric venous insufficiency Distended rectum with feces, mild wall thickening of the rectum could indicate stercoral proctitis Trace free fluid in Morison's pouch Gastrostomy Incidental finding of degenerative spondylosis Kevin Conn Nov 08, 2018 20:10
[2018-11-08] MEDS: Dyna-Hex 2% Top Sol 2oz TOPIC SCH (20:18)
--- NOTE | 2018-11-08 22:00 | NUR ---
NURSE NOTES: Patient repositioned. suctioned and given oral care. Afebrile at this time. No new changes.
[2018-11-08] MEDS ORDERED: Vancomycin 1 GM in D5W 275 ML IV SCH (23:00)
--- NOTE | 2018-11-08 23:00 | Consultation ---
DATE OF CONSULTATION: 11/08/2018 INFECTIOUS DISEASE CONSULTATION CONSULTING PHYSICIAN: Levi Quarles M.D. REFERRING PHYSICIAN: rBia Ward M.D. REASON FOR CONSULTATION: Evaluation of the patient for sepsis, pneumonia, and antibiotic management. HISTORY OF PRESENT ILLNESS: The patient is a 68-year-old male with multiple medical problems including history of recent sepsis, recently new PEG and trach, clear emesis, and bacteremia. The patient has been admitted to this medical center for hypotension. According to the nurse, the patient's trach suction resulted in some tube feeding. The patient was found to be hypotensive and now is in the ICU. Infectious Disease consultation has been requested for evaluation of the patient for treatment of sepsis and pneumonia. PAST MEDICAL HISTORY: 1. History of emesis and bacteremia in September 2018. 2. History of ventilator-dependent respiratory failure. 3. Status post PEG. 4. Status post trach. 5. History of alcohol abuse. 6. History of schizophrenia. MEDICATIONS: IV amikacin, cefepime, and vancomycin. ALLERGIES: No known drug allergies. SOCIAL HISTORY: The patient lives in a [facility]. FAMILY HISTORY: Not available. REVIEW OF SYSTEMS: Limited. The patient never had any abdominal pain. Significant cough. PHYSICAL EXAMINATION: VITAL SIGNS: Temperature 99, T-max 101.3, blood pressure 122/66, pulse 106, and respiratory rate 24. HEENT: No pale conjunctivae. No icterus. NECK: Trach in place. CHEST: Coarse breathing sounds. HEART: S1 and S2. ABDOMEN: Soft. Mildly distended. Nontender. EXTREMITIES: No cyanosis. GENITOURINARY: Hahn catheter in place. SKIN: No rash. LABORATORY DATA: White blood cells 13.3, hemoglobin 8.9, and platelets 243,000. UA unremarkable. BUN 10 and creatinine 1.3. ALT, AST, and alkaline phosphatase are unremarkable. LDH 220. Sputum culture is pending. Urine culture is pending. Chest x-ray, right central venous catheter in position. No pneumothorax. It showed left lung interstitial disease. CT of the chest showed extensive consolidation of right lung, cardiomegaly, possible small bowel obstruction, possible small bowel pneumatosis. ASSESSMENT: The patient is a 68-year-old male with, 1. Sepsis/septic shock. 2. Fever. 3. Leukocytosis. 4. Aspiration pneumonia. 5. Probable small bowel obstruction. CT shows ? small bowel obstructions/small bowel pneumatosis/bilateral lower lung infiltrate, right more than left. 6. Family history of recent illnesses of bacteremia, rule out recurrent bacteremia. PLAN: 1. We will continue the patient on IV cefepime, amikacin, vancomycin. 2. Monitor CBC. 3. Monitor cultures (blood, urine, and sputum). 4. Monitor chest x-ray. 5. Monitor CBC and CMP. 6. Based on the patient's clinical course and laboratories, we will do further recommendations. Thank you for this consultation. I will follow the patient with you during this hospitalization. Levi Quarles M.D. DR: BHAVIK JOB#: [id number] CC:
[2018-11-09] VITALS (24 sets, daily range): BP systolic 128–169; BP diastolic 70–92
--- NOTE | 2018-11-09 | NUR ---
NURSE NOTES: Patient is agitated and respirations in the 30s. Ativan given IVP. Suctioned and given oral care. Position to patients comfort. BP is 169/98. HR 124 ST, afebrile at this time. Will continue to monitor.
--- NOTE | 2018-11-09 02:00 | NUR ---
NURSE NOTES: Patient turned and repositioned. Suctioned secretions. Somewhat agitated but reassured by therapeutic communication. BP remains stable. Will continue to monitor.
[2018-11-09] MEDS: Vancomycin 750mg/NS 275ml IVPB SCH ×4 (02:24→13:48)
--- NOTE | 2018-11-09 04:00 | NUR ---
NURSE NOTES: Patient cleaned and repositioned. Blood drawn and sent to lab. moderate amount of soft BM. FLACC score of 7/10. Patient response to commands and follows directions. BP is stable. Oral care given.
--- NOTE | 2018-11-09 04:30 | Progress Note ---
DATE: 11/07/2018 SUBJECTIVE: The patient is awake, alert, afebrile, and hemodynamically stable. He did not complain of shortness of breath or discomfort. PHYSICAL EXAMINATION: VITAL SIGNS: Blood pressure 101/56, his pulse is 101, respirations of 23, temperature is 99. HEENT: Eyes were normal. ENT, mucous membranes were moist and intact. NECK: Supple with no JVD without lymph nodes. Tracheostomy site is clean. LUNGS: Clear without rhonchi, rales, or wheezing. Secretions are moderate to thick and pale yellow. HEART: Normal sounds with regular beat. He has tachycardia at rest. ABDOMEN: Soft and nontender with normal bowel sounds. Gastrostomy site is clean. EXTREMITIES: Warm without cyanosis, clubbing, or edema. LABORATORY AND DIAGNOSTIC DATA: His hemoglobin is 8.9, hematocrit 28.0 with MCV of 92, WBC of 13.3, and platelets 343,000. His ESR is 91. His BUN and creatinine is 29 and 1.3 respectively. 1.2 yesterday. His sodium is 144, potassium 4.3, chloride 107, CO2 is 31. His glucose is 100. His iron could not be measured. TIBC is 149. His saturation is 3. Liver function tests are normal except LDH is 320, albumin is 1.7, and total protein is 6.1. Chest x-ray revealed extensive airspace opacity and interstitial opacity, most on the right than on the left. IMPRESSION: Status post septic shocks . He is on cefepime and amikacin. Serum calcium and urine calcium are all pending. Repeat laboratory tests will be done in the a.m. Pierre Moreno M.D. DR: SUKUMAR JOB#: [id number] CC:
--- NOTE | 2018-11-09 05:41 | NUR ---
NURSE NOTES: Patients labs were redrawn due to result inconsistencies. Blood obtained Peripherally
[2018-11-09 05:47] LABS: BASOPHILS % (AUTO) 0.3 % (0.0-2.0); EOSINOPHILS % (AUTO) 1.3 % (0.0-3.0); HEMATOCRIT 25.9 % (42.0-52.0); HEMOGLOBIN 8.4 G/DL (14.2-18.0); LYMPHOCYTES % (AUTO) 9.9 % (20.0-45.0); MEAN CORPUSCULAR VOLUME 91 FL (80-99); MONOCYTES % (AUTO) 4.8 % (1.0-10.0); NEUTROPHILS % (AUTO) 83.7 % (45.0-75.0); PLATELET COUNT 300 K/UL (150-450); RED BLOOD COUNT 2.86 M/UL (4.70-6.10); RED CELL DISTRIBUTION WIDTH 15.5 % (11.6-14.8); WHITE BLOOD COUNT 13.8 K/UL (4.8-10.8)
[2018-11-09 05:54] LABS: ANION GAP 7 mmol/L (5-15); BLOOD UREA NITROGEN 26 mg/dL (7-18); CALCIUM 7.9 MG/DL (8.5-10.1); CARBON DIOXIDE 28 MMOL/L (21-32); CHLORIDE 111 MMOL/L (98-107); CREATININE 0.9 MG/DL (0.55-1.30); POTASSIUM 3.5 MMOL/L (3.5-5.1); SODIUM 146 MMOL/L (136-145)
[2018-11-09 05:59] LABS: ALANINE AMINOTRANSFERASE 18 U/L (12-78); ALBUMIN 1.5 G/DL (3.4-5.0); ALBUMIN/GLOBULIN RATIO 0.3 (1.0-2.7); ALKALINE PHOSPHATASE 77 U/L (46-116); ASPARTATE AMINO TRANSFERASE 17 U/L (15-37); BILIRUBIN,TOTAL 0.7 MG/DL (0.2-1.0)
[2018-11-09 06:14] LABS: PHOSPHORUS 2.7 MG/DL (2.5-4.9)
--- NOTE | 2018-11-09 07:15 | NUR ---
NURSE NOTES: Received pt from RUDDY Yanez. Patient nods to verbal commands. Denies pain at this time. Low grade fever 100.0 axillary. Trache to vent; Portex 8.0 Blueline to sxn tube. AC 12/TV 450/Fio2 45%/+5, Spo2 97%. Bilateral breath sounds diminished. -citlali thin secretions noted through trach sxn. ST; HR 110 on telemetry monitor. BP 128/80. Patient has a GT running Jevity 1.2@30ml/hr, no residual, HOB 35 degrees. Abdomen non-distended. Right subclavian TLC running NS@75cc/hr. RAC and LAC 20G patent and asymptomatic. Condom catheter draining well to gravity. Bed locked, alarmed and in lowest position. Will continue plan of care.
--- NOTE | 2018-11-09 07:18 | NUR ---
HAND-OFF: Report given to Ira Whitehead.
[2018-11-09] MEDS: Pantoprazole Inj IV SCH (08:35)
[2018-11-09] MEDS: Heparin 5000 units/ml inj SUBQ SCH ×2 (08:40→20:38)
--- NOTE | 2018-11-09 10:00 | NUR ---
NURSE NOTES: Ax temp 100.0, patient FLACC 4/10. Tylenol 650mg PO given. Rechecked temp 99.9 ax. Oral care given. Turned and repositioned. Patient FLACC now 0/10, asleep in bed.
--- NOTE | 2018-11-09 10:08 | Infectious Diseases Prog Note ---
Assessment/Plan Assessment/Plan ASSESSMENT: The patient is a 68-year-old male with, Sepsis/septic shock, Sp Fever Leukocytosis Aspiration pneumonia SCx: GPC, GNR Probable small bowel obstruction. CT shows ? small bowel obstructions/small bowel pneumatosis/bilateral lower lung infiltrate, right more than left. History of emesis and bacteremia in September 2018. CT of the chest showed extensive consolidation of right lung, cardiomegaly, possible small bowel obstruction, possible small bowel pneumatosis History of ventilator-dependent respiratory failure. Status post PEG. Status post trach. History of alcohol abuse. History of schizophrenia. PLAN: continue the patient on IV cefepime, amikacin, vancomycin # 2 Monitor CBC. Monitor cultures (blood, urine, and sputum). Monitor chest x-ray. Monitor CBC and CMP. Subjective Allergies: Coded Allergies: No Known Allergies (Unverified , 11/07/18) Subjective in ICU low grade fever Objective Vital Signs Last 24 Hour Vital Signs Date Time Temp Pulse Resp B/P (MAP) Pulse Ox O2 Delivery O2 Flow Rate FiO2 11/09/18 09:05 113 28 45 11/09/18 09:00 111 23 142/75 (97) 98 11/09/18 08:00 112 23 138/80 (99) 97 11/09/18 08:00 112 11/09/18 08:00 45.0 11/09/18 08:00 Mechanical Ventilator 11/09/18 07:06 111 22 45 11/09/18 07:00 100.0 109 23 138/80 (99) 100 11/09/18 06:00 120 22 142/75 (97) 100 11/09/18 05:07 117 26 45 11/09/18 05:00 121 24 143/76 (98) 100 11/09/18 04:00 45.0 11/09/18 04:00 99.4 115 23 140/78 (98) 100 11/09/18 04:00 114 11/09/18 04:00 Mechanical Ventilator 11/09/18 03:10 115 23 45 11/09/18 03:00 115 22 145/80 (101) 100 11/09/18 02:00 118 23 132/77 (95) 100 11/09/18 01:13 119 18 45 11/09/18 01:00 118 23 143/74 (97) 100 11/09/18 00:00 Mechanical Ventilator 11/09/18 00:00 126 11/09/18 00:00 99.1 135 35 169/83 (111) 100 11/09/18 00:00 45.0 11/08/18 23:00 119 30 160/93 (115) 100 11/08/18 22:37 105 20 45 11/08/18 22:00 111 28 139/74 (95) 100 11/08/18 21:29 101 22 45 11/08/18 21:00 109 24 129/71 (90) 100 11/08/18 20:00 45.0 11/08/18 20:00 Mechanical Ventilator 11/08/18 20:00 106 11/08/18 20:00 98.8 106 31 131/76 (94) 100 11/08/18 19:14 105 24 45 11/08/18 19:00 106 26 122/66 (84) 100 11/08/18 18:00 102 30 110/59 (76) 98 11/08/18 17:00 101 23 110/56 (74) 100 11/08/18 16:45 98 20 45 11/08/18 16:00 99.0 100 24 109/58 (75) 100 11/08/18 16:00 50.0 11/08/18 16:00 103 11/08/18 16:00 Mechanical Ventilator 11/08/18 15:16 111 24 45 11/08/18 15:00 108 25 114/57 (76) 100 11/08/18 14:22 99.0 11/08/18 14:00 112 25 115/57 (76) 100 11/08/18 13:04 112 26 45 11/08/18 13:00 108 24 112/77 (89) 100 11/08/18 12:00 110 11/08/18 12:00 100.0 112 24 111/54 (73) 11/08/18 12:00 50.0 11/08/18 12:00 Mechanical Ventilator 11/08/18 11:17 112 27 45 11/08/18 11:00 113 26 117/55 (75) Height (Feet): 5 Height (Inches): 8.00 Weight (Pounds): 143 HEENT: mucous membranes moist Respiratory/Chest: no accessory muscle use Cardiovascular: regularly irregular Abdomen: non distended Microbiology Date/Time Source Procedure Growth Status 11/07/18 12:00 Blood Blood Culture - Preliminary NO GROWTH AFTER 24 HOURS Resulted 11/07/18 12:00 Blood Blood Culture - Preliminary NO GROWTH AFTER 24 HOURS Resulted 11/07/18 19:30 Sputum Gram Stain - Final Resulted 11/07/18 19:30 Sputum Culture - Preliminary Gram Negative Bacillus 1 Staphylococcus Aureus Usual Respiratory Randi Resulted 11/07/18 12:30 Indwelling Cath Urine Culture - Preliminary NO GROWTH AFTER 24 HOURS Resulted Laboratory Tests Test 11/08/18 11:00 11/09/18 00:00 11/09/18 04:00 11/09/18 05:30 Erythrocyte Sedimentation Rate 91 MM/HR (0-20) H 124 MM/HR (0-20) H Reticulocyte Count 6.0 % (0.5-2.0) H Prothrombin Time 13.8 SEC (9.30-11.50) H Prothromb Time International Ratio 1.3 (0.9-1.1) H Activated Partial Thromboplast Time 40 SEC (23-33) H Iron Level < 5 ug/dL (50-175) L Total Iron Binding Capacity 149 ug/dL (250-450) L Percent Iron Saturation 3 % (15-50) L Unsaturated Iron Binding ug/dL (112-346) Lactate Dehydrogenase 320 U/L (81-234) H Carcinoembryonic Antigen Pending Vitamin B12 Level 735 PG/ML (193-986) Folate 24.2 NG/ML (8.6-58.9) Random Amikacin Level 14.1 ug/mL Vancomycin Level Trough 14.0 ug/mL (5.0-12.0) H White Blood Count 13.8 K/UL (4.8-10.8) H Red Blood Count 2.86 M/UL (4.70-6.10) L Hemoglobin 8.4 G/DL (14.2-18.0) L Hematocrit 25.9 % (42.0-52.0) L Mean Corpuscular Volume 91 FL (80-99) Mean Corpuscular Hemoglobin 29.5 PG (27.0-31.0) Mean Corpuscular Hemoglobin Concent 32.5 G/DL (32.0-36.0) Red Cell Distribution Width 15.5 % (11.6-14.8) H Platelet Count 300 K/UL (150-450) Mean Platelet Volume 5.1 FL (6.5-10.1) L Neutrophils (%) (Auto) 83.7 % (45.0-75.0) H Lymphocytes (%) (Auto) 9.9 % (20.0-45.0) L Monocytes (%) (Auto) 4.8 % (1.0-10.0) Eosinophils (%) (Auto) 1.3 % (0.0-3.0) Basophils (%) (Auto) 0.3 % (0.0-2.0) Sodium Level 146 MMOL/L (136-145) H Potassium Level 3.5 MMOL/L (3.5-5.1) Chloride Level 111 MMOL/L (98-107) H Carbon Dioxide Level 28 MMOL/L (21-32) Anion Gap 7 mmol/L (5-15) Blood Urea Nitrogen 26 mg/dL (7-18) H Creatinine 0.9 MG/DL (0.55-1.30) Estimat Glomerular Filtration Rate > 60 mL/min (>60) Glucose Level 90 MG/DL (74-106) Calcium Level 7.9 MG/DL (8.5-10.1) L Phosphorus Level 2.7 MG/DL (2.5-4.9) Magnesium Level 1.7 MG/DL (1.8-2.4) L Total Bilirubin 0.7 MG/DL (0.2-1.0) Aspartate Amino Transf (AST/SGOT) 17 U/L (15-37) Alanine Aminotransferase (ALT/SGPT) 18 U/L (12-78) Alkaline Phosphatase 77 U/L (46-116) C-Reactive Protein, Quantitative 28.6 mg/dL (0.00-0.90) H Total Protein 6.1 G/DL (6.4-8.2) L Albumin 1.5 G/DL (3.4-5.0) L Globulin 4.6 g/dL Albumin/Globulin Ratio 0.3 (1.0-2.7) L Current Medications Medications (Trade) Dose Ordered Sig/Ingrid Route PRN Reason Start Time Stop Time Status Last Admin Dose Admin Acetaminophen (Tylenol) 650 mg Q4H PRN ORAL FEVER 11/07/18 18:15 12/07/18 18:14 11/09/18 09:38 Albuterol/ Ipratropium (Albuterol/ Ipratropium) 3 ml Q4H PRN HHN Shortness of Breath 11/07/18 18:15 11/12/18 18:14 Amikacin Protocol (Amikacin pharmacy to dose) 1 ea DAILY PRN MISC Per rx protocol 11/08/18 10:30 12/08/18 10:29 Amikacin Sulfate 950 mg/Sodium Chloride 278.8 ml @ 278.8 mls/ hr Q36H IV 11/08/18 12:00 11/15/18 11:59 11/08/18 12:38 Cefepime HCl 2 gm/ Dextrose 55 ml @ 110 mls/hr Q24H IVPB 11/08/18 11:00 11/15/18 10:59 11/08/18 11:50 Chlorhexidine Gluconate (Neisha-Hex 2%) 1 applic DAILY@2000 TOPIC 11/08/18 20:00 12/08/18 19:59 11/08/18 20:18 Dextrose (Dextrose 50%) 25 ml Q30M PRN IV Hypoglycemia 11/07/18 18:15 12/07/18 18:14 Dextrose (Dextrose 50%) 50 ml Q30M PRN IV Hypoglycemia 11/07/18 18:15 12/07/18 18:14 Heparin Sodium (Porcine) (Heparin 5000 units/ml) 5,000 units EVERY 12 HOURS SUBQ 11/07/18 21:00 12/07/18 20:59 11/09/18 08:40 Lorazepam (Ativan 2mg/ml 1ml) 2 mg Q2H PRN IV For Anxiety 11/07/18 18:15 11/14/18 18:14 11/08/18 23:57 Morphine Sulfate (Morphine Sulfate) 4 mg Q4H PRN IVP Severe Pain (Pain Scale 7-10) 11/07/18 18:15 11/14/18 18:14 11/09/18 00:17 Norepinephrine Bitartrate 4 mg/ Dextrose 250 ml @ 0 mls/hr Q24H IV 11/07/18 18:52 12/07/18 18:51 11/07/18 22:13 Ondansetron HCl (Zofran) 4 mg Q6H PRN IVP Nausea & Vomiting 11/07/18 18:15 12/07/18 18:14 Pantoprazole (Protonix) 40 mg DAILY IV 11/08/18 09:00 12/08/18 08:59 11/09/18 08:35 Polyethylene Glycol (Miralax) 17 gm DAILYPRN PRN ORAL Constipation 11/07/18 18:15 12/07/18 18:14 Sodium Chloride 1,000 ml @ 75 mls/hr [id number] IV 11/08/18 18:23 12/07/18 18:22 11/09/18 05:00 Vancomycin HCl (Vanco rx to dose) 1 ea DAILY PRN MISC . 11/07/18 18:30 12/07/18 18:29 Vancomycin HCl 750 mg/Sodium Chloride 275 ml @ 183.333 mls/hr Q12HR@0100,1300 IVPB 11/08/18 01:00 11/13/18 00:59 11/09/18 02:24 Levi Quarles MD Nov 09, 2018 10:08
--- NOTE | 2018-11-09 10:09 | NUR ---
*-* INSURANCE *-* ALL CLINICALS AND REVIEWS HAVE BEEN FAXED TO: [employer] REF# [id number] NCM:FINN P: [phone] F: [phone] Addendum: 11/10/18 at 1551 by ANTHONY SARMIENTO & [facility] LUIS# [id number] F: [phone]
--- NOTE | 2018-11-09 10:22 | NUR ---
Social Service Note Patient recently transferred from [facility] to [facility] 11/04/18. Facility doesn't have a completed POLST. Patient is full code. Patient awake, vent, trach and g-tube. WILMAN left a message for Lupillo Perez [phone] emergency contact. No return call at this time. Patient will continue to require long-term subacute placement upon discharge. Will continue to monitor and follow up as needed.
--- NOTE | 2018-11-09 10:41 | Pulmonolgy Critical Care Note ---
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 glazier, renal Discussed with: nurses, consultants, manager rn casefoundry manager - Objective Last 24 Hour Vital Signs Date Time Temp Pulse Resp B/P (MAP) Pulse Ox O2 Delivery O2 Flow Rate FiO2 11/09/18 09:05 113 28 45 11/09/18 09:00 111 23 142/75 (97) 98 11/09/18 08:00 112 23 138/80 (99) 97 11/09/18 08:00 112 11/09/18 08:00 45.0 11/09/18 08:00 Mechanical Ventilator 11/09/18 07:06 111 22 45 11/09/18 07:00 100.0 109 23 138/80 (99) 100 11/09/18 06:00 120 22 142/75 (97) 100 11/09/18 05:07 117 26 45 11/09/18 05:00 121 24 143/76 (98) 100 11/09/18 04:00 45.0 11/09/18 04:00 99.4 115 23 140/78 (98) 100 11/09/18 04:00 114 11/09/18 04:00 Mechanical Ventilator 11/09/18 03:10 115 23 45 11/09/18 03:00 115 22 145/80 (101) 100 11/09/18 02:00 118 23 132/77 (95) 100 11/09/18 01:13 119 18 45 11/09/18 01:00 118 23 143/74 (97) 100 11/09/18 00:00 Mechanical Ventilator 11/09/18 00:00 126 11/09/18 00:00 99.1 135 35 169/83 (111) 100 11/09/18 00:00 45.0 11/08/18 23:00 119 30 160/93 (115) 100 11/08/18 22:37 105 20 45 11/08/18 22:00 111 28 139/74 (95) 100 11/08/18 21:29 101 22 45 11/08/18 21:00 109 24 129/71 (90) 100 11/08/18 20:00 45.0 11/08/18 20:00 Mechanical Ventilator 11/08/18 20:00 106 11/08/18 20:00 98.8 106 31 131/76 (94) 100 11/08/18 19:14 105 24 45 11/08/18 19:00 106 26 122/66 (84) 100 11/08/18 18:00 102 30 110/59 (76) 98 11/08/18 17:00 101 23 110/56 (74) 100 11/08/18 16:45 98 20 45 11/08/18 16:00 99.0 100 24 109/58 (75) 100 11/08/18 16:00 50.0 11/08/18 16:00 103 11/08/18 16:00 Mechanical Ventilator 11/08/18 15:16 111 24 45 11/08/18 15:00 108 25 114/57 (76) 100 11/08/18 14:22 99.0 11/08/18 14:00 112 25 115/57 (76) 100 11/08/18 13:04 112 26 45 11/08/18 13:00 108 24 112/77 (89) 100 11/08/18 12:00 110 11/08/18 12:00 100.0 112 24 111/54 (73) 11/08/18 12:00 50.0 11/08/18 12:00 Mechanical Ventilator 11/08/18 11:17 112 27 45 11/08/18 11:00 113 26 117/55 (75) Status: awake Condition: critical HEENT: atraumatic Neck: full ROM Lungs: clear Heart: HR/BP stable, HR/BP unstable, regular Abdomen: non-tender, feeding tube Decubiti: location Micro: Microbiology Date/Time Source Procedure Growth Status 11/07/18 12:00 Blood Blood Culture - Preliminary NO GROWTH AFTER 24 HOURS Resulted 11/07/18 12:00 Blood Blood Culture - Preliminary NO GROWTH AFTER 24 HOURS Resulted 11/07/18 19:30 Sputum Gram Stain - Final Resulted 10/1/19 19:30 Sputum Culture - Preliminary Gram Negative Bacillus 1 Staphylococcus Aureus Usual Respiratory Randi Resulted 11/07/18 12:30 Indwelling Cath Urine Culture - Preliminary NO GROWTH AFTER 24 HOURS Resulted Critical Care - Subjective ROS Limited/Unobtainable: No ICU Day: 3 Condition: critical EKG Rhythm: Sinus Rhythm FI02: 45 Vent Support Breath Rate: 12 Vent Support Mode: AC Vent Tidal Volume: 450 Sputum Amount: Moderate PEEP: 5.0 PIP: 31 Tube Feeding Amount: 30 I&O: Intake and Output 11/08/18 11/09/18 18:59 06:59 Intake Total 1354.800 ml 1435 ml Output Total 1115 ml 505 ml Balance 239.800 ml 930 ml Intake Free Water 30 ml 50 ml IV Total 1204.800 ml 1025 ml Tube Feeding 120 ml 360 ml Output Urine Total 1115 ml 505 ml # Bowel Movements 1 2 CXR: better aeration of the right lung Labs: Laboratory Tests Test 11/08/18 11:00 11/09/18 00:00 11/09/18 04:00 11/09/18 05:30 Erythrocyte Sedimentation Rate 91 MM/HR (0-20) H 124 MM/HR (0-20) H Reticulocyte Count 6.0 % (0.5-2.0) H Prothrombin Time 13.8 SEC (9.30-11.50) H Prothromb Time International Ratio 1.3 (0.9-1.1) H Activated Partial Thromboplast Time 40 SEC (23-33) H Iron Level < 5 ug/dL (50-175) L Total Iron Binding Capacity 149 ug/dL (250-450) L Percent Iron Saturation 3 % (15-50) L Unsaturated Iron Binding ug/dL (112-346) Lactate Dehydrogenase 320 U/L (81-234) H Carcinoembryonic Antigen Pending Vitamin B12 Level 735 PG/ML (193-986) Folate 24.2 NG/ML (8.6-58.9) Random Amikacin Level 14.1 ug/mL Vancomycin Level Trough 14.0 ug/mL (5.0-12.0) H White Blood Count 13.8 K/UL (4.8-10.8) H Red Blood Count 2.86 M/UL (4.70-6.10) L Hemoglobin 8.4 G/DL (14.2-18.0) L Hematocrit 25.9 % (42.0-52.0) L Mean Corpuscular Volume 91 FL (80-99) Mean Corpuscular Hemoglobin 29.5 PG (27.0-31.0) Mean Corpuscular Hemoglobin Concent 32.5 G/DL (32.0-36.0) Red Cell Distribution Width 15.5 % (11.6-14.8) H Platelet Count 300 K/UL (150-450) Mean Platelet Volume 5.1 FL (6.5-10.1) L Neutrophils (%) (Auto) 83.7 % (45.0-75.0) H Lymphocytes (%) (Auto) 9.9 % (20.0-45.0) L Monocytes (%) (Auto) 4.8 % (1.0-10.0) Eosinophils (%) (Auto) 1.3 % (0.0-3.0) Basophils (%) (Auto) 0.3 % (0.0-2.0) Sodium Level 146 MMOL/L (136-145) H Potassium Level 3.5 MMOL/L (3.5-5.1) Chloride Level 111 MMOL/L (98-107) H Carbon Dioxide Level 28 MMOL/L (21-32) Anion Gap 7 mmol/L (5-15) Blood Urea Nitrogen 26 mg/dL (7-18) H Creatinine 0.9 MG/DL (0.55-1.30) Estimat Glomerular Filtration Rate > 60 mL/min (>60) Glucose Level 90 MG/DL (74-106) Calcium Level 7.9 MG/DL (8.5-10.1) L Phosphorus Level 2.7 MG/DL (2.5-4.9) Magnesium Level 1.7 MG/DL (1.8-2.4) L Total Bilirubin 0.7 MG/DL (0.2-1.0) Aspartate Amino Transf (AST/SGOT) 17 U/L (15-37) Alanine Aminotransferase (ALT/SGPT) 18 U/L (12-78) Alkaline Phosphatase 77 U/L (46-116) C-Reactive Protein, Quantitative 28.6 mg/dL (0.00-0.90) H Total Protein 6.1 G/DL (6.4-8.2) L Albumin 1.5 G/DL (3.4-5.0) L Globulin 4.6 g/dL Albumin/Globulin Ratio 0.3 (1.0-2.7) L Bria Ward MD Nov 09, 2018 10:41
[2018-11-09] MEDS ORDERED: Iron Sucrose 200 MG in NS 110 ML IV ONE ×2 (12:15→13:00)
[2018-11-09] MEDS: Cefepime HCl 2 GM in D5W 55 ML IVPB SCH (12:22)
--- NOTE | 2018-11-09 12:43 | NUR ---
NURSE NOTES: Patient wants to drink water. Provided education that patient cannot at this time, oral care given for dry oral mucosa. Tolerating GTF well.
--- NOTE | 2018-11-09 12:58 | Diagnostic Imaging Report ---
APPROVED REPORT CPT Code: 24484 Present Symptoms Comments: R/O DVT No signs of DVT seen bilaterally. Patent CFV, SFV(prox, dist), POP v, Calf veins
--- NOTE | 2018-11-09 13:29 | NUR ---
PERSONAL SERVICE REPRESENTATIVECENTRAL SUPPLY CLERK SI: RESP FAILURE TRACH/VENT DEPENDENT,LEUKOCYTOSIS T. 99.9 HR 113 RR 28 B/P 142/75 AC 12 TV 450 FIO2 455 PEEP 5 WBC 13.8 NA 146 BUN 26 MG 1.7 IS: IVF NS @ 75ML/HR VANCO IV AMIKACIN IV CEFEPIME IV MAGNESIUM IV ICU STATUS
--- NOTE | 2018-11-09 14:15 | NUR ---
NURSE NOTES: x2 mag IVPB and Venofer IVPB given as per ordered. No signs of distress noted. Patient resting in bed with eyes closed.
[2018-11-09] MEDS ORDERED: NS 275ml ONE (14:45)
--- NOTE | 2018-11-09 16:15 | NUR ---
NURSE NOTES: Turned and repositioned. Oral care done. Patient resting in bed comfortably and watching television. Endotracheal sxn provided.
--- NOTE | 2018-11-09 18:32 | NUR ---
NURSE NOTES: Placed new condom cath. Previous condom cath fell off. Connected and draining well to gravity. Pt kept dry and clean. No signs of distress.
--- NOTE | 2018-11-09 19:00 | NUR ---
RESPIRATORY NOTE: pt Received on AC 12, 450VT, 45%, PEEP +5. Pt is trach-dependent w/ a cuffed, Portex 8, Pt is alert, no signs or SOB noted, HR is elevated 111, sat of 100%, sx PRN, yeison. rhonchi BS, Vent plugged into red outlet, alarms are on and audible,ambubag at bedside, Will continue to monitor pt.
--- NOTE | 2018-11-09 19:10 | NUR ---
HAND-OFF: Report given to RUDDY Vázquez.
--- NOTE | 2018-11-09 19:10 | NUR ---
NURSE NOTES: Received report from Ira Whitehead RN. Patient is alert and oriented X2. Trach portex 8 and vent setting AC 12, VT 450, FiO2 40% and Peep 5. ST 110s on the monitor. Gtube intact and running with Jevity 1.2 @30ml/hr. Condom cath intact and clean. Right subclavian TLC intact, clean and running @75ml/hr. No acute distress/SOB noted. Patient denies any pain/discomfort at this time. Trach suction and oral suction given. Kept dry, clean, comfortable and HOB>30. Will continue plan of care.
--- NOTE | 2018-11-09 19:42 | Surgery Progress Note ---
Surgery Progress Note Subjective Procedure Performed Right subclavian central venous catheter insertion Additional Comments leukocytosis esr/crp elevated abd exam stable ill appearing in ICU line okay Objective Last 24 Hour Vital Signs Date Time Temp Pulse Resp B/P (MAP) Pulse Ox O2 Delivery O2 Flow Rate FiO2 11/09/18 19:00 118 14 167/92 (117) 96 11/09/18 18:40 110 32 45 11/09/18 18:00 110 14 156/87 (110) 98 11/09/18 17:20 107 29 45 11/09/18 17:00 98.9 109 27 154/80 (104) 98 11/09/18 16:00 45.0 11/09/18 16:00 103 11/09/18 16:00 Mechanical Ventilator 11/09/18 16:00 105 27 144/78 (100) 98 11/09/18 15:00 104 13 138/73 (94) 100 11/09/18 14:31 115 21 45 11/09/18 14:00 107 20 134/72 (92) 98 11/09/18 13:06 108 24 45 11/09/18 13:00 112 20 128/70 (89) 98 11/09/18 12:00 Mechanical Ventilator 11/09/18 12:00 45.0 11/09/18 12:00 99.9 105 21 131/74 (93) 98 11/09/18 12:00 106 11/09/18 11:45 106 25 45 11/09/18 11:00 106 20 131/72 (91) 98 11/09/18 10:08 99.9 11/09/18 10:00 106 22 134/74 (94) 98 11/09/18 09:05 113 28 45 11/09/18 09:00 111 23 142/75 (97) 98 11/09/18 08:00 112 23 138/80 (99) 97 11/09/18 08:00 112 11/09/18 08:00 45.0 11/09/18 08:00 Mechanical Ventilator 11/09/18 07:06 111 22 45 11/09/18 07:00 100.0 109 23 138/80 (99) 100 11/09/18 06:00 120 22 142/75 (97) 100 11/09/18 05:07 117 26 45 11/09/18 05:00 121 24 143/76 (98) 100 11/09/18 04:00 45.0 11/09/18 04:00 99.4 115 23 140/78 (98) 100 11/09/18 04:00 114 11/09/18 04:00 Mechanical Ventilator 11/09/18 03:10 115 23 45 11/09/18 03:00 115 22 145/80 (101) 100 11/09/18 02:00 118 23 132/77 (95) 100 11/09/18 01:13 119 18 45 11/09/18 01:00 118 23 143/74 (97) 100 11/09/18 00:00 Mechanical Ventilator 11/09/18 00:00 126 11/09/18 00:00 99.1 135 35 169/83 (111) 100 11/09/18 00:00 45.0 11/08/18 23:00 119 30 160/93 (115) 100 11/08/18 22:37 105 20 45 11/08/18 22:00 111 28 139/74 (95) 100 11/08/18 21:29 101 22 45 11/08/18 21:00 109 24 129/71 (90) 100 11/08/18 20:00 45.0 11/08/18 20:00 Mechanical Ventilator 11/08/18 20:00 106 11/08/18 20:00 98.8 106 31 131/76 (94) 100 I&O Intake and Output 11/08/18 11/09/18 19:00 07:00 Intake Total 1327.300 ml 1435 ml Output Total 1105 ml 485 ml Balance 222.300 ml 950 ml Intake Free Water 30 ml 50 ml IV Total 1147.300 ml 1025 ml Tube Feeding 150 ml 360 ml Output Urine Total 1105 ml 485 ml # Bowel Movements 1 2 Dressing: dry Wound: clean Cardiovascular: RSR Respiratory: decreased breath sounds Abdomen: soft, non-tender, non-distended, decreased bowel sounds Extremities: no tenderness, no cyanosis Laboratory Tests Test 11/09/18 00:00 11/09/18 04:00 11/09/18 05:30 Random Amikacin Level 14.1 ug/mL Vancomycin Level Trough 14.0 ug/mL (5.0-12.0) H Erythrocyte Sedimentation Rate 124 MM/HR (0-20) H White Blood Count 13.8 K/UL (4.8-10.8) H Red Blood Count 2.86 M/UL (4.70-6.10) L Hemoglobin 8.4 G/DL (14.2-18.0) L Hematocrit 25.9 % (42.0-52.0) L Mean Corpuscular Volume 91 FL (80-99) Mean Corpuscular Hemoglobin 29.5 PG (27.0-31.0) Mean Corpuscular Hemoglobin Concent 32.5 G/DL (32.0-36.0) Red Cell Distribution Width 15.5 % (11.6-14.8) H Platelet Count 300 K/UL (150-450) Mean Platelet Volume 5.1 FL (6.5-10.1) L Neutrophils (%) (Auto) 83.7 % (45.0-75.0) H Lymphocytes (%) (Auto) 9.9 % (20.0-45.0) L Monocytes (%) (Auto) 4.8 % (1.0-10.0) Eosinophils (%) (Auto) 1.3 % (0.0-3.0) Basophils (%) (Auto) 0.3 % (0.0-2.0) Sodium Level 146 MMOL/L (136-145) H Potassium Level 3.5 MMOL/L (3.5-5.1) Chloride Level 111 MMOL/L (98-107) H Carbon Dioxide Level 28 MMOL/L (21-32) Anion Gap 7 mmol/L (5-15) Blood Urea Nitrogen 26 mg/dL (7-18) H Creatinine 0.9 MG/DL (0.55-1.30) Estimat Glomerular Filtration Rate > 60 mL/min (>60) Glucose Level 90 MG/DL (74-106) Calcium Level 7.9 MG/DL (8.5-10.1) L Phosphorus Level 2.7 MG/DL (2.5-4.9) Magnesium Level 1.7 MG/DL (1.8-2.4) L Total Bilirubin 0.7 MG/DL (0.2-1.0) Aspartate Amino Transf (AST/SGOT) 17 U/L (15-37) Alanine Aminotransferase (ALT/SGPT) 18 U/L (12-78) Alkaline Phosphatase 77 U/L (46-116) C-Reactive Protein, Quantitative 28.6 mg/dL (0.00-0.90) H Total Protein 6.1 G/DL (6.4-8.2) L Albumin 1.5 G/DL (3.4-5.0) L Globulin 4.6 g/dL Albumin/Globulin Ratio 0.3 (1.0-2.7) L Plan Problems: (1) Abdominal distension Assessment & Plan: abd distention possible sbo CT noted as below NPO IV fluids IV Abx resuscitation AM labs CXR AM KUB g tube to suction will follow with recs (2) Sepsis Assessment & Plan: leukocytosis anemia lactic acidosis abnormal labs resp depression abd distention NPO IV fluids IV Abx resuscitation AM labs CXR AM KUB g tube to suction central line will follow with recs thank you Chest: The chest demonstrates extensive dense consolidation of the entire right lung. There is also atelectasis of much of the right lower lobe. There is a small amount of pleural fluid on the right. Extensive although less severe interstitial and airspace opacities are also seen in the left upper and lower lobes, with some areas of consolidated lung, interstitial edema and groundglass parenchymal opacity elsewhere. There is trace pleural fluid on the left. The heart is mildly enlarged. There is a small amount of pericardial effusion laterally. No mediastinal or hilar mass or adenopathy. There is a tracheostomy. The included thyroid is unremarkable. The esophagus is unremarkable. The bones are unremarkable. Abdomen pelvis:There is diffuse distention of the small bowel which is diffusely fluid-filled. Distention extends throughout most of length of the small bowel. The transition point appears to be at the level of the distal ileum in the anterior left lower quadrant. Transition point is somewhat gradual. Circumferential beads of gas in the left upper quadrant small bowel loops raise suspicion for small bowel pneumatosis. However, this is not definitely evident in the portions of small bowel that are likely filled with gas, so could represent so-called pseudopneumatosis related to gas between the bowel wall and small bowel contents. There is no bowel wall thickening demonstrated. The proximal mesenteric vessels are patent, as are the superior mesenteric vein and splenic vein. There is a gastrostomy in place. The cecum is distended. The appendix is normal. There is distention of the rectum with feces and mild wall thickening of the rectum. There is trace free fluid in Morison's pouch. No free intraperitoneal gas. The liver, gallbladder, bile ducts, pancreas, spleen, adrenals are unremarkable. Subcentimeter low-attenuation lesions in the kidneys most likely represent cysts The bones demonstrate mild degenerative spondylosis changes. IMPRESSION: Chest: Extensive consolidation of the right lung, most likely pneumonia. There is also a component of atelectasis. Less extensive but still severe parenchymal opacities on the left, most likely represent pneumonia but could also represent pulmonary edema Small bilateral pleural effusions Cardiomegaly Tracheostomy Abdomen pelvis: Diffuse distention of the small bowel which is diffusely fluid-filled. There is tapering to normal caliber distal ileum. There is also some distention of the cecum. Findings may be on a functional basis, but the possibility of distal small bowel obstruction should also be considered. There is also evidence of small bowel pneumatosis versus pseudopneumatosis. There is no evidence of proximal arterial insufficiency or of mesenteric venous insufficiency Distended rectum with feces, mild wall thickening of the rectum could indicate stercoral proctitis Trace free fluid in Morison's pouch Gastrostomy Incidental finding of degenerative spondylosis Kevin Conn Nov 09, 2018 19:42
[2018-11-09] MEDS: Dyna-Hex 2% Top Sol 2oz TOPIC SCH (20:32)
--- NOTE | 2018-11-09 21:05 | NUR ---
NURSE NOTES: Oral care provided.
--- NOTE | 2018-11-09 22:05 | NUR ---
NURSE NOTES: Seen by Dr. Moreno and assessed. New order carried out for BP.
--- NOTE | 2018-11-09 22:10 | NUR ---
NURSE NOTES: Asked Dr. Moreno for PRN BP meds. No order at this time. Will continue plan of care.
[2018-11-09] MEDS ORDERED: Metoprolol Tartrate 50mg tab ORAL SCH (22:15)
[2018-11-10] VITALS (30 sets, daily range): BP systolic 150–178; BP diastolic 75–102
--- NOTE | 2018-11-10 | NUR ---
NURSE NOTES: Oral care given and repositioned patient.
[2018-11-10] MEDS: AMIKACIN IV SCH (00:07)
[2018-11-10] MEDS: NS IV SCH (00:07)
[2018-11-10] MEDS: Vancomycin 750mg/NS 275ml IVPB SCH ×4 (01:03→13:39)
--- NOTE | 2018-11-10 01:20 | NUR ---
NURSE NOTES: Put new condom catheter and provided bed mcgrath per pt request.
--- NOTE | 2018-11-10 03:25 | NUR ---
NURSE NOTES: Bed bath given. Kept comfortable. Placed call light within reach.
--- NOTE | 2018-11-10 04:10 | NUR ---
NURSE NOTES: Repositioned patient. No change in condition. Still ST 119s on the monitor. SBP 150-160.
[2018-11-10 04:48] LABS: BASOPHILS % (AUTO) 0.7 % (0.0-2.0); EOSINOPHILS % (AUTO) 0.7 % (0.0-3.0); HEMATOCRIT 27.3 % (42.0-52.0); HEMOGLOBIN 8.7 G/DL (14.2-18.0); LYMPHOCYTES % (AUTO) 11.2 % (20.0-45.0); MEAN CORPUSCULAR VOLUME 91 FL (80-99); NEUTROPHILS % (AUTO) 83.4 % (45.0-75.0); PLATELET COUNT 270 K/UL (150-450); RED BLOOD COUNT 3.01 M/UL (4.70-6.10); RED CELL DISTRIBUTION WIDTH 15.4 % (11.6-14.8)
[2018-11-10 05:27] LABS: ALANINE AMINOTRANSFERASE 16 U/L (12-78); ALBUMIN 1.6 G/DL (3.4-5.0); ALBUMIN/GLOBULIN RATIO 0.3 (1.0-2.7); ALKALINE PHOSPHATASE 85 U/L (46-116); ANION GAP 7 mmol/L (5-15); ASPARTATE AMINO TRANSFERASE 19 U/L (15-37); BILIRUBIN,TOTAL 0.8 MG/DL (0.2-1.0); BLOOD UREA NITROGEN 17 mg/dL (7-18); CALCIUM 8.1 MG/DL (8.5-10.1); CARBON DIOXIDE 29 MMOL/L (21-32); CHLORIDE 110 MMOL/L (98-107); CREATININE 0.8 MG/DL (0.55-1.30); POTASSIUM 3.2 MMOL/L (3.5-5.1); SODIUM 146 MMOL/L (136-145)
--- NOTE | 2018-11-10 06:15 | NUR ---
NURSE NOTES: Still ST 110s and SBP 160s. Patient denies any pain/discomfort. Will continue to monitor.
--- NOTE | 2018-11-10 07:15 | NUR ---
RESPIRATORY NOTE: Received pt on ordered vent settings. Pt airway is patent and secured. No resp distress noted. Suctioned pt prn. Vent alarms are on and audible. Vent is plugged into red outlet. Will monitor pt progress.
--- NOTE | 2018-11-10 07:17 | NUR ---
HAND-OFF: Report given to RUDDY Bloom. Endorsed plan of care.
--- NOTE | 2018-11-10 08:00 | NUR ---
NURSE NOTES: Received change of shift report from Gurpreet FOX. Pt is awake, alert, oriented x2. Pt has trach to vent, Portex 8.0 with vent settings AC12, VT450, Peep 5.0, FIO2 40% with 97% O2sat and expiratory rhonchi on auscultation. cardiac monitor technician displays ST with heart rate in the 100's-110's. Temp 99.2F axillary. Pt has GT in place with feeding Jevity 1.2 at 30ml/hr with no residual. Abdomen is round, soft, nontender to touch with hypoactive bowel sounds. Pt has right subclavian TLC infusing NS at 75ml/hour, and two peripheral IV access on bilateral ACs #20Gs each, saline locked, patent/intact. Condom cath is in place, draining clear/yellow urine. Skin is intact. Head of bed is at 30 degrees, bed in lowest position, locked, three side rails up and call light within reach. Will continue with plan of care.
--- NOTE | 2018-11-10 08:19 | NUR ---
RADIOLOGY DEPT., CHEST AND ABDOMEN X-RAYS COMPLETED.-P.DYE
[2018-11-10] MEDS: Pantoprazole Inj IV SCH (08:47)
[2018-11-10] MEDS: Heparin 5000 units/ml inj SUBQ SCH ×2 (08:48→20:55)
[2018-11-10] MEDS ORDERED: Metoprolol Tartrate 50mg tab ORAL SCH (09:00)
--- NOTE | 2018-11-10 09:06 | NUR ---
NURSE NOTES: AM meds were administered and oral care done, pt suctioned. Received call from Microbiology for sputum culture result MRSA pos. Charge nurse aware. Will inform
--- NOTE | 2018-11-10 09:39 | NUR ---
RD ASSESSMENT & RECOMMENDATIONS SEE CARE ACTIVITY FOR COMPLETE ASSESSMENT DAILY ESTIMATED NEEDS: Needs based on Critical Care, Sepsis/ 64kg 22-28 kcals/kg 5441-8575 total kcals 1.2-2 g protein/kg 77-128 g total protein 25-30 mL/kg 6966-7158 total fluid mLs NUTRITION DIAGNOSIS: * Swallowing difficulty R/T respiratory status as evidenced by pt is trach/vent, PEG dep, currently w/ distended abdomen, possible SBO per MD w/ rec for NPO. * Altered nutrition related lab values R/T sepsis, clinical condition as evidenced by elev wbc (15.0), now afebrile, elev LA (4.2 -> now wnl), elev RR + HR, hypotensive upon adm, now hypertensive, elev BNP (20017). CURRENT TF:Jevity 1.2 @ 30ml/hr x 24 hrs ENTERAL NUTRITION RECOMMENDATIONS: Osmolite 1.5 @ 45ml/hr x 24 hrs to provide 1080ml, 1620kcal, 68g prot, 886ml free water * Once able to feed and medically appropriate -> Rec to initiate Osmolite 1.5 @ 25ml/hr x 6hrs -> Advance 10ml q 4-6 hrs as tolerated to goal rate * HOB over 30 degrees/ water flush per MD ADDITIONAL RECOMMENDATIONS: * Calibrated bedscale wt for accurate CBW * Monitor for ability to feed- possible SBO per MD * Monitor lytes, replete as needed (low mag + K) * Consider adjusting IVF -> hypernatremia, pt on NS
--- NOTE | 2018-11-10 09:49 | Pulmonolgy Critical Care Note ---
Critical Care - Asmt/Plan Problems: (1) Nosocomial pneumonia (2) Sepsis (3) Ventilator dependent (4) Schizophrenia (5) Feeding by G-tube (6) Chronic respiratory failure Respiratory: monitor respiratory rate, adjust FIO2, CXR Cardiac: continue to monitor HR/BP Renal: F/U I&O, check electrolytes Infectious Disease: check cultures Gastrointestinal: continue feedings/current rate Endocrine: monitor blood sugar, check TSH Hematologic: transfuse if hgb<8.5 Neurologic: PRN Ativan, keep patient comfortable Affect: PRN ativan Prophylaxis: Protonix Notes Reviewed: pantry steward/stewardess, cardio Discussed with: nurses, consultants, rn case manager hospicemanager product marketing - Objective Last 24 Hour Vital Signs Date Time Temp Pulse Resp B/P (MAP) Pulse Ox O2 Delivery O2 Flow Rate FiO2 11/10/18 09:08 113 28 45 11/10/18 08:47 109 168/98 11/10/18 08:30 111 36 173/91 (118) 98 11/10/18 08:00 99.2 114 32 170/98 (122) 97 11/10/18 07:15 109 25 45 11/10/18 07:00 114 27 168/98 (121) 96 11/10/18 06:00 117 34 167/90 (115) 96 11/10/18 05:14 118 31 45 11/10/18 05:00 114 34 150/91 (110) 95 11/10/18 04:00 98.2 109 25 163/84 (110) 96 11/10/18 04:00 109 11/10/18 04:00 Mechanical Ventilator 11/10/18 04:00 45 11/10/18 03:00 111 26 45 11/10/18 03:00 108 36 171/88 (115) 95 11/10/18 02:00 98 33 153/81 (105) 95 11/10/18 01:10 106 27 45 11/10/18 01:00 98 27 153/87 (109) 11/10/18 00:00 86 11/10/18 00:00 99.0 92 18 152/77 (102) 99 11/10/18 00:00 Mechanical Ventilator 11/09/18 23:00 85 13 139/77 (97) 99 11/09/18 23:00 110 29 45 11/09/18 22:20 103 157/91 11/09/18 22:00 99.1 111 23 157/91 (113) 97 11/09/18 21:30 99.1 11/09/18 21:17 108 27 45 11/09/18 21:00 115 32 159/87 (111) 97 11/09/18 20:00 117 11/09/18 20:00 45 11/09/18 20:00 99.3 119 20 159/92 (114) 96 11/09/18 20:00 Mechanical Ventilator 11/09/18 19:00 118 14 167/92 (117) 96 11/09/18 18:40 110 32 45 11/09/18 18:00 110 14 156/87 (110) 98 11/09/18 17:20 107 29 45 11/09/18 17:00 98.9 109 27 154/80 (104) 98 11/09/18 16:00 45.0 11/09/18 16:00 103 11/09/18 16:00 Mechanical Ventilator 11/09/18 16:00 105 27 144/78 (100) 98 11/09/18 15:00 104 13 138/73 (94) 100 11/09/18 14:31 115 21 45 11/09/18 14:00 107 20 134/72 (92) 98 11/09/18 13:06 108 24 45 11/09/18 13:00 112 20 128/70 (89) 98 11/09/18 12:00 Mechanical Ventilator 11/09/18 12:00 45.0 11/09/18 12:00 99.9 105 21 131/74 (93) 98 11/09/18 12:00 106 11/09/18 11:45 106 25 45 11/09/18 11:00 106 20 131/72 (91) 98 11/09/18 10:00 106 22 134/74 (94) 98 Status: awake HEENT: atraumatic, normocephalic Neck: trach Lungs: rales, rhonchi Heart: HR/BP stable Abdomen: soft, active bowel sounds Extremities: no C/C/E Micro: Microbiology Date/Time Source Procedure Growth Status 11/07/18 12:00 Blood Blood Culture - Preliminary NO GROWTH AFTER 48 HOURS Resulted 11/07/18 12:00 Blood Blood Culture - Preliminary NO GROWTH AFTER 48 HOURS Resulted 11/07/18 19:30 Sputum Gram Stain - Final Complete 11/07/18 19:30 Sputum Culture - Final Escherichia Coli Staphylococcus Aureus - Mrsa Usual Respiratory Randi Complete 11/07/18 12:30 Indwelling Cath Urine Culture - Final NO GROWTH AFTER 48 HOURS Complete Critical Care - Subjective ROS Limited/Unobtainable: No ICU Day: 3 EKG Rhythm: Sinus Rhythm FI02: 45 Vent Support Breath Rate: 12 Vent Support Mode: AC Vent Tidal Volume: 450 Sputum Amount: Moderate PEEP: 5.0 PIP: 37 Tube Feeding Amount: 30 I&O: Intake and Output 11/09/18 11/10/18 19:00 07:00 Intake Total 1360 ml 1671.300 ml Output Total 680 ml 1320 ml Balance 680 ml 351.300 ml Intake Free Water 150 ml IV Total 850 ml 1311.300 ml Tube Feeding 360 ml 360 ml Output Urine Total 680 ml 1320 ml CXR: increasing infiltrate Labs: Laboratory Tests Test 11/10/18 03:40 White Blood Count 15.0 K/UL (4.8-10.8) H Red Blood Count 3.01 M/UL (4.70-6.10) L Hemoglobin 8.7 G/DL (14.2-18.0) L Hematocrit 27.3 % (42.0-52.0) L Mean Corpuscular Volume 91 FL (80-99) Mean Corpuscular Hemoglobin 29.0 PG (27.0-31.0) Mean Corpuscular Hemoglobin Concent 32.0 G/DL (32.0-36.0) Red Cell Distribution Width 15.4 % (11.6-14.8) H Platelet Count 270 K/UL (150-450) Mean Platelet Volume 5.8 FL (6.5-10.1) L Neutrophils (%) (Auto) 83.4 % (45.0-75.0) H Lymphocytes (%) (Auto) 11.2 % (20.0-45.0) L Monocytes (%) (Auto) 4.0 % (1.0-10.0) Eosinophils (%) (Auto) 0.7 % (0.0-3.0) Basophils (%) (Auto) 0.7 % (0.0-2.0) Sodium Level 146 MMOL/L (136-145) H Potassium Level 3.2 MMOL/L (3.5-5.1) L Chloride Level 110 MMOL/L (98-107) H Carbon Dioxide Level 29 MMOL/L (21-32) Anion Gap 7 mmol/L (5-15) Blood Urea Nitrogen 17 mg/dL (7-18) Creatinine 0.8 MG/DL (0.55-1.30) Estimat Glomerular Filtration Rate > 60 mL/min (>60) Glucose Level 123 MG/DL (74-106) H Calcium Level 8.1 MG/DL (8.5-10.1) L Total Bilirubin 0.8 MG/DL (0.2-1.0) Aspartate Amino Transf (AST/SGOT) 19 U/L (15-37) Alanine Aminotransferase (ALT/SGPT) 16 U/L (12-78) Alkaline Phosphatase 85 U/L (46-116) Pro-B-Type Natriuretic Peptide 75357 pg/mL (0-125) H Total Protein 6.4 G/DL (6.4-8.2) Albumin 1.6 G/DL (3.4-5.0) L Globulin 4.8 g/dL Albumin/Globulin Ratio 0.3 (1.0-2.7) L Bria Ward MD Nov 10, 2018 09:49
--- NOTE | 2018-11-10 10:30 | Progress Note ---
DATE: 11/09/2018 NOTE: VERY POOR AUDIO SUBJECTIVE: The patient is awake, alert, and afebrile. Hemodynamically stable. He had an episode of SVT at the rate of 170s, itself resolved. PHYSICAL EXAMINATION: VITAL SIGNS: Blood pressure now is 159/87, his pulse is 115, respirations 27, and temperature 99.3. HEENT: Eyes were normal. Mucous membranes were dry. NECK: Supple with no JVD without lymph nodes. Tracheostomy site is clean. LUNGS: Clear without rhonchi, rales, or wheezing. Secretions are small, thin, and white. HEART: Normal sounds with regular beats. There is no S3, S4, or pericardial rub. ABDOMEN: Soft and nontender with normal bowel sounds. Gastrostomy site is clean. EXTREMITIES: Warm without cyanosis, clubbing, or edema. LABORATORY AND DIAGNOSTIC DATA: His hemoglobin is 8.4, hematocrit 25.9 with MCV of 91, WBC of 13.8, and platelets of 300,00. His BUN and creatinine are 26 and 0.9 respectively. His sodium is 143, potassium 3.5, chloride 111, and CO2 is 26. His calcium is 7.9, his phosphorus is 2.7, and magnesium 1.7. laboratory test was canceled. Albumin is 1.5, total protein is 6.1. Venous duplex scan showed no sign of DVT. . November 11. CT scan of the chest, abdomen, and pelvis was done infiltrate associated with atelectasis of the right lower lobe. Abdomen is distended. small bowel . The patient left upper quadrant , however, thickening of the wall. CT scan of the abdomen and pelvis distention of the small bowel distal ileum. small bowel . on a daily basis. scheduled. Repeat laboratory tests will be done in the a.m. Pierre Moreno M.D. DR: Flor JOB#: [id number] CC:
--- NOTE | 2018-11-10 12:00 | NUR ---
NURSE NOTES: K level from today's labs was reported to Dr Ward and order was received to replace with KCL total 40meq IV. Order will be processed and followed. Pt is awake, watching TV, denies pain, remains on AC settings on trach to vent. Pt is afebrile with Temp 98.7F axillary. Condom cath was changed. Oral care was done and pt was repositioned.
--- NOTE | 2018-11-10 12:29 | Diagnostic Imaging Report ---
Indication: Abdominal distention and pain Comparison: None Single view of the abdomen obtained Findings: Bowel gas pattern is nonspecific. Gastrostomy projected over the stomach. No mass, ectopic calcifications, or abnormal gas collections are identified. The bones are unremarkable. Impression: No acute findings
--- NOTE | 2018-11-10 12:30 | Diagnostic Imaging Report ---
Indication: Dyspnea Comparison: 11/07/2018 A single view chest radiograph was obtained. Findings: Tracheostomy and the right central venous catheter appear stable. Extensive mixed interstitial alveolar infiltrates noted bilaterally within the lungs which are markedly opacified. This may be slightly worse within the left lung over the last few days. Heart appears enlarged. Gastrostomy also noted. IMPRESSION: Worsening bilateral infiltrates currently extensive. Findings could be due to inflammatory/infectious disease or severe pulmonary edema or combination.
--- NOTE | 2018-11-10 13:06 | Surgery Progress Note ---
Surgery Progress Note Subjective Procedure Performed Right subclavian central venous catheter insertion Additional Comments more awake and alert today following commands still desaturating on vent support respiratory insufficiency cont Objective Last 24 Hour Vital Signs Date Time Temp Pulse Resp B/P (MAP) Pulse Ox O2 Delivery O2 Flow Rate FiO2 11/10/18 12:00 45 11/10/18 12:00 Mechanical Ventilator 11/10/18 11:30 98 36 154/86 (108) 95 11/10/18 11:00 96 35 161/81 (107) 96 11/10/18 10:45 105 26 45 11/10/18 10:30 97 34 158/81 (106) 96 11/10/18 10:00 95 34 156/82 (106) 96 11/10/18 09:57 98.8 11/10/18 09:30 98 36 161/87 (111) 96 11/10/18 09:08 113 28 45 11/10/18 09:00 97 170/75 (106) 96 11/10/18 08:47 109 168/98 11/10/18 08:30 111 36 173/91 (118) 98 11/10/18 08:00 45 11/10/18 08:00 114 11/10/18 08:00 99.2 114 32 170/98 (122) 97 11/10/18 08:00 Mechanical Ventilator 11/10/18 07:15 109 25 45 11/10/18 07:00 114 27 168/98 (121) 96 11/10/18 06:00 117 34 167/90 (115) 96 11/10/18 05:14 118 31 45 11/10/18 05:00 114 34 150/91 (110) 95 11/10/18 04:00 98.2 109 25 163/84 (110) 96 11/10/18 04:00 109 11/10/18 04:00 Mechanical Ventilator 11/10/18 04:00 45 11/10/18 03:00 111 26 45 11/10/18 03:00 108 36 171/88 (115) 95 11/10/18 02:00 98 33 153/81 (105) 95 11/10/18 01:10 106 27 45 11/10/18 01:00 98 27 153/87 (109) 11/10/18 00:00 86 11/10/18 00:00 99.0 92 18 152/77 (102) 99 11/10/18 00:00 Mechanical Ventilator 11/09/18 23:00 85 13 139/77 (97) 99 11/09/18 23:00 110 29 45 11/09/18 22:20 103 157/91 11/09/18 22:00 99.1 111 23 157/91 (113) 97 11/09/18 21:17 108 27 45 11/09/18 21:00 115 32 159/87 (111) 97 11/09/18 20:00 117 11/09/18 20:00 45 11/09/18 20:00 99.3 119 20 159/92 (114) 96 11/09/18 20:00 Mechanical Ventilator 11/09/18 19:00 118 14 167/92 (117) 96 11/09/18 18:40 110 32 45 11/09/18 18:00 110 14 156/87 (110) 98 11/09/18 17:20 107 29 45 11/09/18 17:00 98.9 109 27 154/80 (104) 98 11/09/18 16:00 45.0 11/09/18 16:00 103 11/09/18 16:00 Mechanical Ventilator 11/09/18 16:00 105 27 144/78 (100) 98 11/09/18 15:00 104 13 138/73 (94) 100 11/09/18 14:31 115 21 45 11/09/18 14:00 107 20 134/72 (92) 98 11/09/18 13:06 108 24 45 I&O Intake and Output 11/09/18 11/10/18 18:59 06:59 Intake Total 1360 ml 1671.300 ml Output Total 430 ml 1570 ml Balance 930 ml 101.300 ml Intake Free Water 100 ml 50 ml IV Total 900 ml 1261.300 ml Tube Feeding 360 ml 360 ml Output Urine Total 430 ml 1570 ml Dressing: dry Cardiovascular: RSR Respiratory: clear Abdomen: soft, flat, non-tender, present bowel sounds Extremities: no edema, no cyanosis Laboratory Tests Test 11/10/18 03:40 White Blood Count 15.0 K/UL (4.8-10.8) H Red Blood Count 3.01 M/UL (4.70-6.10) L Hemoglobin 8.7 G/DL (14.2-18.0) L Hematocrit 27.3 % (42.0-52.0) L Mean Corpuscular Volume 91 FL (80-99) Mean Corpuscular Hemoglobin 29.0 PG (27.0-31.0) Mean Corpuscular Hemoglobin Concent 32.0 G/DL (32.0-36.0) Red Cell Distribution Width 15.4 % (11.6-14.8) H Platelet Count 270 K/UL (150-450) Mean Platelet Volume 5.8 FL (6.5-10.1) L Neutrophils (%) (Auto) 83.4 % (45.0-75.0) H Lymphocytes (%) (Auto) 11.2 % (20.0-45.0) L Monocytes (%) (Auto) 4.0 % (1.0-10.0) Eosinophils (%) (Auto) 0.7 % (0.0-3.0) Basophils (%) (Auto) 0.7 % (0.0-2.0) Sodium Level 146 MMOL/L (136-145) H Potassium Level 3.2 MMOL/L (3.5-5.1) L Chloride Level 110 MMOL/L (98-107) H Carbon Dioxide Level 29 MMOL/L (21-32) Anion Gap 7 mmol/L (5-15) Blood Urea Nitrogen 17 mg/dL (7-18) Creatinine 0.8 MG/DL (0.55-1.30) Estimat Glomerular Filtration Rate > 60 mL/min (>60) Glucose Level 123 MG/DL (74-106) H Calcium Level 8.1 MG/DL (8.5-10.1) L Total Bilirubin 0.8 MG/DL (0.2-1.0) Aspartate Amino Transf (AST/SGOT) 19 U/L (15-37) Alanine Aminotransferase (ALT/SGPT) 16 U/L (12-78) Alkaline Phosphatase 85 U/L (46-116) Pro-B-Type Natriuretic Peptide 50512 pg/mL (0-125) H Total Protein 6.4 G/DL (6.4-8.2) Albumin 1.6 G/DL (3.4-5.0) L Globulin 4.8 g/dL Albumin/Globulin Ratio 0.3 (1.0-2.7) L Plan Problems: (1) Abdominal distension Assessment & Plan: abd distention possible sbo CT noted as below NPO IV fluids IV Abx resuscitation AM labs CXR AM KUB g tube to suction will follow with recs (2) Sepsis Assessment & Plan: leukocytosis anemia lactic acidosis abnormal labs resp depression abd distention NPO IV fluids IV Abx resuscitation AM labs CXR AM KUB g tube to suction central line will follow with recs thank you Chest: The chest demonstrates extensive dense consolidation of the entire right lung. There is also atelectasis of much of the right lower lobe. There is a small amount of pleural fluid on the right. Extensive although less severe interstitial and airspace opacities are also seen in the left upper and lower lobes, with some areas of consolidated lung, interstitial edema and groundglass parenchymal opacity elsewhere. There is trace pleural fluid on the left. The heart is mildly enlarged. There is a small amount of pericardial effusion laterally. No mediastinal or hilar mass or adenopathy. There is a tracheostomy. The included thyroid is unremarkable. The esophagus is unremarkable. The bones are unremarkable. Abdomen pelvis:There is diffuse distention of the small bowel which is diffusely fluid-filled. Distention extends throughout most of length of the small bowel. The transition point appears to be at the level of the distal ileum in the anterior left lower quadrant. Transition point is somewhat gradual. Circumferential beads of gas in the left upper quadrant small bowel loops raise suspicion for small bowel pneumatosis. However, this is not definitely evident in the portions of small bowel that are likely filled with gas, so could represent so-called pseudopneumatosis related to gas between the bowel wall and small bowel contents. There is no bowel wall thickening demonstrated. The proximal mesenteric vessels are patent, as are the superior mesenteric vein and splenic vein. There is a gastrostomy in place. The cecum is distended. The appendix is normal. There is distention of the rectum with feces and mild wall thickening of the rectum. There is trace free fluid in Morison's pouch. No free intraperitoneal gas. The liver, gallbladder, bile ducts, pancreas, spleen, adrenals are unremarkable. Subcentimeter low-attenuation lesions in the kidneys most likely represent cysts The bones demonstrate mild degenerative spondylosis changes. IMPRESSION: Chest: Extensive consolidation of the right lung, most likely pneumonia. There is also a component of atelectasis. Less extensive but still severe parenchymal opacities on the left, most likely represent pneumonia but could also represent pulmonary edema Small bilateral pleural effusions Cardiomegaly Tracheostomy Abdomen pelvis: Diffuse distention of the small bowel which is diffusely fluid-filled. There is tapering to normal caliber distal ileum. There is also some distention of the cecum. Findings may be on a functional basis, but the possibility of distal small bowel obstruction should also be considered. There is also evidence of small bowel pneumatosis versus pseudopneumatosis. There is no evidence of proximal arterial insufficiency or of mesenteric venous insufficiency Distended rectum with feces, mild wall thickening of the rectum could indicate stercoral proctitis Trace free fluid in Morison's pouch Gastrostomy Incidental finding of degenerative spondylosis Kevni Conn Nov 10, 2018 13:06
[2018-11-10] MEDS: Cefepime HCl 2 GM in D5W 55 ML IVPB SCH (13:39)
--- NOTE | 2018-11-10 14:30 | NUR ---
NURSE NOTES: Pt was cleaned, gown/bed linens were changed. Condom catheter was changed. Pt has been repositioned with bilateral extremities elevated on pillows. Pt is resting in no apparent distress.
--- NOTE | 2018-11-10 14:55 | Cardiology Report ---
APPROVED REPORT EKG Measurement Heart [id number] Sinus tachycardia Possible Left atrial enlargement Borderline ECG
--- NOTE | 2018-11-10 16:00 | NUR ---
NURSE NOTES: Bilateral soft wrist restraints were placed on pt due to observed several attempts pt reaching for trach and pulled out condom cath.
--- NOTE | 2018-11-10 18:00 | NUR ---
NURSE NOTES: Pt had BM x1, formed/soft/brown. Stool specimen was collected and will be taken to the lab. Pt was cleaned and repositioned. Pt was seen by Dr Tiffanie MD is aware of pt's elevated BP and HR. Order received to increase Metoprolol to 50mg BID via GT. Pt was also seen by Dr Quarles. is aware of sputum culture result MRSA and fluctuating temp. No new orders at this time. Temp 99.4 F axillary.
--- NOTE | 2018-11-10 18:01 | Infectious Diseases Prog Note ---
Assessment/Plan Assessment/Plan ASSESSMENT: The patient is a 68-year-old male with, Sepsis/septic shock, Sp Fever, sp Leukocytosis increased Aspiration pneumonia SCx: MRSA, EColi Probable small bowel obstruction. CT shows ? small bowel obstructions/small bowel pneumatosis/bilateral lower lung infiltrate, right more than left. History of emesis and bacteremia in September 2018. CT of the chest showed extensive consolidation of right lung, cardiomegaly, possible small bowel obstruction, possible small bowel pneumatosis History of ventilator-dependent respiratory failure. Status post PEG. Status post trach. History of alcohol abuse. History of schizophrenia. PLAN: continue the patient on IV vancomycin # 3/14 , add IV rocephin # 1 DC cefepime, amikacin # 3 Monitor cultures (blood, urine,). Monitor chest x-ray. Monitor CBC and CMP. Subjective Allergies: Coded Allergies: No Known Allergies (Unverified , 11/07/18) Subjective in ICU afebrile Objective Vital Signs Last 24 Hour Vital Signs Date Time Temp Pulse Resp B/P (MAP) Pulse Ox O2 Delivery O2 Flow Rate FiO2 11/10/18 17:10 114 29 45 11/10/18 17:00 115 40 172/95 (120) 94 11/10/18 16:00 107 11/10/18 16:00 45 11/10/18 16:00 99.4 107 37 166/86 (112) 94 11/10/18 16:00 Mechanical Ventilator 11/10/18 15:00 109 38 171/83 (112) 96 11/10/18 14:40 107 27 45 11/10/18 14:00 106 30 174/88 (116) 96 11/10/18 13:00 106 38 173/91 (118) 11/10/18 12:43 102 38 165/93 (117) 11/10/18 12:40 108 29 45 11/10/18 12:00 98.7 98 32 174/91 (118) 96 11/10/18 12:00 45 11/10/18 12:00 Mechanical Ventilator 11/10/18 12:00 110 11/10/18 11:00 96 35 161/81 (107) 96 11/10/18 10:45 105 26 45 11/10/18 10:30 97 34 158/81 (106) 96 11/10/18 10:00 95 34 156/82 (106) 96 11/10/18 09:57 98.8 11/10/18 09:30 98 36 161/87 (111) 96 11/10/18 09:08 113 28 45 11/10/18 09:00 97 170/75 (106) 96 11/10/18 08:47 109 168/98 11/10/18 08:30 111 36 173/91 (118) 98 11/10/18 08:00 45 11/10/18 08:00 114 11/10/18 08:00 99.2 114 32 170/98 (122) 97 11/10/18 08:00 Mechanical Ventilator 11/10/18 07:15 109 25 45 11/10/18 07:00 114 27 168/98 (121) 96 11/10/18 06:00 117 34 167/90 (115) 96 11/10/18 05:14 118 31 45 11/10/18 05:00 114 34 150/91 (110) 95 11/10/18 04:00 98.2 109 25 163/84 (110) 96 11/10/18 04:00 109 11/10/18 04:00 Mechanical Ventilator 11/10/18 04:00 45 11/10/18 03:00 111 26 45 11/10/18 03:00 108 36 171/88 (115) 95 11/10/18 02:00 98 33 153/81 (105) 95 11/10/18 01:10 106 27 45 11/10/18 01:00 98 27 153/87 (109) 11/10/18 00:00 86 11/10/18 00:00 99.0 92 18 152/77 (102) 99 11/10/18 00:00 Mechanical Ventilator 11/09/18 23:00 85 13 139/77 (97) 99 11/09/18 23:00 110 29 45 11/09/18 22:20 103 157/91 11/09/18 22:00 99.1 111 23 157/91 (113) 97 11/09/18 21:17 108 27 45 11/09/18 21:00 115 32 159/87 (111) 97 11/09/18 20:00 117 11/09/18 20:00 45 11/09/18 20:00 99.3 119 20 159/92 (114) 96 11/09/18 20:00 Mechanical Ventilator 11/09/18 19:00 118 14 167/92 (117) 96 11/09/18 18:40 110 32 45 Height (Feet): 5 Height (Inches): 8.00 Weight (Pounds): 144 HEENT: mucous membranes moist Respiratory/Chest: decreased breath sounds Cardiovascular: normal rate Abdomen: soft, non tender Microbiology Date/Time Source Procedure Growth Status 11/07/18 19:30 Sputum Gram Stain - Final Complete 11/07/18 19:30 Sputum Culture - Final Escherichia Coli Staphylococcus Aureus - Mrsa Usual Respiratory Randi Complete Laboratory Tests Test 11/10/18 03:40 White Blood Count 15.0 K/UL (4.8-10.8) H Red Blood Count 3.01 M/UL (4.70-6.10) L Hemoglobin 8.7 G/DL (14.2-18.0) L Hematocrit 27.3 % (42.0-52.0) L Mean Corpuscular Volume 91 FL (80-99) Mean Corpuscular Hemoglobin 29.0 PG (27.0-31.0) Mean Corpuscular Hemoglobin Concent 32.0 G/DL (32.0-36.0) Red Cell Distribution Width 15.4 % (11.6-14.8) H Platelet Count 270 K/UL (150-450) Mean Platelet Volume 5.8 FL (6.5-10.1) L Neutrophils (%) (Auto) 83.4 % (45.0-75.0) H Lymphocytes (%) (Auto) 11.2 % (20.0-45.0) L Monocytes (%) (Auto) 4.0 % (1.0-10.0) Eosinophils (%) (Auto) 0.7 % (0.0-3.0) Basophils (%) (Auto) 0.7 % (0.0-2.0) Sodium Level 146 MMOL/L (136-145) H Potassium Level 3.2 MMOL/L (3.5-5.1) L Chloride Level 110 MMOL/L (98-107) H Carbon Dioxide Level 29 MMOL/L (21-32) Anion Gap 7 mmol/L (5-15) Blood Urea Nitrogen 17 mg/dL (7-18) Creatinine 0.8 MG/DL (0.55-1.30) Estimat Glomerular Filtration Rate > 60 mL/min (>60) Glucose Level 123 MG/DL (74-106) H Calcium Level 8.1 MG/DL (8.5-10.1) L Total Bilirubin 0.8 MG/DL (0.2-1.0) Aspartate Amino Transf (AST/SGOT) 19 U/L (15-37) Alanine Aminotransferase (ALT/SGPT) 16 U/L (12-78) Alkaline Phosphatase 85 U/L (46-116) Pro-B-Type Natriuretic Peptide 94336 pg/mL (0-125) H Total Protein 6.4 G/DL (6.4-8.2) Albumin 1.6 G/DL (3.4-5.0) L Globulin 4.8 g/dL Albumin/Globulin Ratio 0.3 (1.0-2.7) L Current Medications Medications (Trade) Dose Ordered Sig/Ingrid Route PRN Reason Start Time Stop Time Status Last Admin Dose Admin Acetaminophen (Tylenol) 650 mg Q4H PRN ORAL FEVER 11/07/18 18:15 12/07/18 18:14 11/10/18 09:27 Albuterol/ Ipratropium (Albuterol/ Ipratropium) 3 ml Q4H PRN HHN Shortness of Breath 11/07/18 18:15 11/12/18 18:14 Amikacin Protocol (Amikacin pharmacy to dose) 1 ea DAILY PRN MISC Per rx protocol 11/08/18 10:30 12/08/18 10:29 Amikacin Sulfate 950 mg/Sodium Chloride 278.8 ml @ 278.8 mls/ hr Q36H IV 11/08/18 12:00 11/15/18 11:59 11/10/18 00:07 Cefepime HCl 2 gm/ Dextrose 55 ml @ 110 mls/hr Q24H IVPB 11/09/18 12:30 11/16/18 12:29 11/10/18 13:39 Chlorhexidine Gluconate (Neisha-Hex 2%) 1 applic DAILY@2000 TOPIC 11/08/18 20:00 12/08/18 19:59 11/09/18 20:32 Dextrose (Dextrose 50%) 25 ml Q30M PRN IV Hypoglycemia 11/07/18 18:15 12/07/18 18:14 Dextrose (Dextrose 50%) 50 ml Q30M PRN IV Hypoglycemia 11/07/18 18:15 12/07/18 18:14 Heparin Sodium (Porcine) (Heparin 5000 units/ml) 5,000 units EVERY 12 HOURS SUBQ 11/07/18 21:00 12/07/18 20:59 11/10/18 08:48 Lorazepam (Ativan 2mg/ml 1ml) 2 mg Q2H PRN IV For Anxiety 11/07/18 18:15 11/14/18 18:14 11/08/18 23:57 Metoprolol Tartrate (Lopressor) 100 mg Q12HR ORAL 11/10/18 21:00 12/09/18 22:14 Morphine Sulfate (Morphine Sulfate) 4 mg Q4H PRN IVP Severe Pain (Pain Scale 7-10) 11/07/18 18:15 11/14/18 18:14 11/09/18 00:17 Ondansetron HCl (Zofran) 4 mg Q6H PRN IVP Nausea & Vomiting 11/07/18 18:15 12/07/18 18:14 Pantoprazole (Protonix) 40 mg DAILY IV 11/08/18 09:00 12/08/18 08:59 11/10/18 08:47 Polyethylene Glycol (Miralax) 17 gm DAILYPRN PRN ORAL Constipation 11/07/18 18:15 12/07/18 18:14 Sodium Chloride 1,000 ml @ 75 mls/hr [id number] IV 11/08/18 18:23 12/07/18 18:22 11/10/18 09:27 Vancomycin HCl (Vanco rx to dose) 1 ea DAILY PRN MISC . 11/07/18 18:30 12/07/18 18:29 Vancomycin HCl 750 mg/Sodium Chloride 275 ml @ 183.333 mls/hr Q12HR@0100,1300 IVPB 11/08/18 01:00 11/13/18 00:59 11/10/18 13:39 Levi Quarles MD Nov 10, 2018 18:01
--- NOTE | 2018-11-10 19:18 | NUR ---
CASE MANAGEMENT: REVIEW SI: SEPSIS . PNA , VENT DEPENDENT T 99.4 HR 123 RR 41 BP 178/98 SAT 94% MECH VENT FIO2 45 WBC 15.0 H/H 8.7/27.3 NA 146 K 3.2 BNP [id number] IS: PROTONIX IV QD NS IVF @75ML/HR VANCO IV Q12HR CEFTRIAXONE IV Q24HR METOPROLOL PO Q12HR ICU STATUS DCP: PATIENT IS FROM [facility]
--- NOTE | 2018-11-10 19:20 | NUR ---
NURSE NOTES: Received report from RUDDY Bloom. Patient is AAO x2. Trach Portex 8 and vent setting AC 12, VT 450, Peep 5 and FiO2 45%. ST 120s on the monitor. GT intact and running with Jevity 1.2 30ml/hr. Condom cath intact and clean. On bilateral soft wrist restraints. Skin intact and clean on restraints sites. Right subclavian TLC intact, clean and running with NS 75ml/hr. Kept dry, clean, comfortable and HOB>30. Call light placed in easy reach. Will continue plan of care.
--- NOTE | 2018-11-10 19:28 | NUR ---
HAND-OFF: Report given to Gurpreet FOX. Endorsed plan of care. Dr Roman at nurse's station and informed regarding pt's high BP.
--- NOTE | 2018-11-10 19:39 | NUR ---
NURSE NOTES: Talked with Dr. Roman regarding pt's BP and HR. He ordered norvasc 5mg x1.
[2018-11-10] MEDS: Dyna-Hex 2% Top Sol 2oz TOPIC SCH (20:07)
--- NOTE | 2018-11-10 20:10 | NUR ---
NURSE NOTES: Repositioned patient. Oral care provided. No change in condition.
[2018-11-10] MEDS ORDERED: cefTRIAXone 1 GM in D5W 55 ML IVPB SCH (21:00)
--- NOTE | 2018-11-10 21:30 | NUR ---
NURSE NOTES: All due meds given as ordered.
--- NOTE | 2018-11-10 23:15 | Progress Note ---
DATE: 11/10/2018 SUBJECTIVE: The patient is still with low-grade fever and tachycardia. PHYSICAL EXAMINATION: VITAL SIGNS: Blood pressure 156/86, pulse 112, respiratory rate 27, temperature is 99.8. HEENT: Eyes were normal. ENT, mucous membranes were moist and intact. NECK: Supple with no JVD without lymph nodes. Tracheostomy site is clean. LUNGS: Clear without rhonchi, rales, or wheezing. Secretions are small, thin, and garnica. HEART: Normal sounds with regular beats. There is no S3, S4, or pericardial rub. ABDOMEN: Soft and nontender with normal bowel sounds. Gastrostomy site is clean. EXTREMITIES: Warm without cyanosis, clubbing, or edema. LABORATORY AND DIAGNOSTIC DATA: His hemoglobin is 8.7, hematocrit 27.3 with MCV of 91, WBC 15.0 and platelets is 270. His BUN and creatinine is 17 and 0.8 respectively. Sodium is 133, potassium 3.6, chloride 110, CO2 is 29. ProBNP 16,000, it was 4000 on 11/09/2018. His albumin is 1.6, it was 1.5 yesterday. His total protein increased to 6.4, it was 6.1 yesterday. His KUB, there is no change from previous studies. IMPRESSION: The patient still has sepsis, hypertension, tachycardia, uncontrolled on current medications. The patient's metoprolol will be increased to 100 twice a day. Repeat laboratory tests will be done in the a.m. Blood culture will be taken if temperature above 100.5. Pierre Moreno M.D. DR: Dariel JOB#: [id number] CC:
--- NOTE | 2018-11-10 23:40 | NUR ---
NURSE NOTES: Patient had a BM x1 soft brown stool. Bed bath given.
[2018-11-11] VITALS (20 sets, daily range): BP systolic 119–168; BP diastolic 59–85
[2018-11-11] MEDS: Vancomycin 750mg/NS 275ml IVPB SCH ×4 (00:17→12:34)
--- NOTE | 2018-11-11 00:30 | NUR ---
NURSE NOTES: Repositioned patient and Trach suction and oral care given.
--- NOTE | 2018-11-11 01:33 | NUR ---
NURSE NOTES: HR 90s-100s noted at this time. Will continue plan of care.
--- NOTE | 2018-11-11 03:35 | NUR ---
NURSE NOTES: Bed bath given and changed condom cath. Will continue plan of care.
--- NOTE | 2018-11-11 04:18 | NUR ---
NURSE NOTES: Collected blood from right subclavian TLC and sent to the lab.
[2018-11-11 05:32] LABS: BASOPHILS % (AUTO) 0.4 % (0.0-2.0); EOSINOPHILS % (AUTO) 0.1 % (0.0-3.0); HEMATOCRIT 26.9 % (42.0-52.0); HEMOGLOBIN 8.7 G/DL (14.2-18.0); LYMPHOCYTES % (AUTO) 9.9 % (20.0-45.0); MEAN CORPUSCULAR VOLUME 89 FL (80-99); NEUTROPHILS % (AUTO) 83.6 % (45.0-75.0); PLATELET COUNT 306 K/UL (150-450); RED BLOOD COUNT 3.02 M/UL (4.70-6.10); WHITE BLOOD COUNT 17.1 K/UL (4.8-10.8)
[2018-11-11 06:12] LABS: ALANINE AMINOTRANSFERASE 16 U/L (12-78); ALBUMIN 1.5 G/DL (3.4-5.0); ALBUMIN/GLOBULIN RATIO 0.3 (1.0-2.7); ALKALINE PHOSPHATASE 89 U/L (46-116); ANION GAP 7 mmol/L (5-15); ASPARTATE AMINO TRANSFERASE 17 U/L (15-37); BILIRUBIN,TOTAL 0.8 MG/DL (0.2-1.0); BLOOD UREA NITROGEN 12 mg/dL (7-18); CALCIUM 7.6 MG/DL (8.5-10.1); CARBON DIOXIDE 34 MMOL/L (21-32); CHLORIDE 108 MMOL/L (98-107); CREATININE 0.8 MG/DL (0.55-1.30); PHOSPHORUS 2.2 MG/DL (2.5-4.9); SODIUM 148 MMOL/L (136-145)
--- NOTE | 2018-11-11 06:13 | NUR ---
NURSE NOTES: Repositioned patient. Condom cath intact and drain by gravity. No s/sx of pain noted. ST 110s on the monitor. Will continue to monitor.
[2018-11-11 06:15] LABS: POTASSIUM 2.2 MMOL/L (3.5-5.1)
--- NOTE | 2018-11-11 06:25 | NUR ---
NURSE NOTES: Seen by Dr. Ward and informed of K, Mg and Phos level.
--- NOTE | 2018-11-11 06:35 | Pulmonolgy Critical Care Note ---
Critical Care - Asmt/Plan Problems: (1) Nosocomial pneumonia (2) Sepsis (3) Ventilator dependent (4) Schizophrenia (5) Feeding by G-tube (6) Chronic respiratory failure Respiratory: monitor respiratory rate, adjust FIO2, CXR Cardiac: continue to monitor HR/BP Renal: F/U I&O, keep IV fluid, check electrolytes Infectious Disease: check cultures Gastrointestinal: continue feedings/current rate Endocrine: check TSH, check HgA1C Neurologic: PRN Ativan Affect: PRN ativan Prophylaxis: Protonix, Heparin Time Spent (Minutes): 40 Notes Reviewed: renal Discussed with: nurses, consultants, case resource managerramp manager - Objective Last 24 Hour Vital Signs Date Time Temp Pulse Resp B/P (MAP) Pulse Ox O2 Delivery O2 Flow Rate FiO2 11/11/18 06:00 112 37 161/77 (105) 93 11/11/18 05:00 110 38 165/75 (105) 92 11/11/18 04:59 105 40 55 11/11/18 04:00 98.8 107 35 163/83 (109) 95 11/11/18 04:00 Mechanical Ventilator 11/11/18 04:00 45 11/11/18 04:00 101 11/11/18 03:02 102 38 55 11/11/18 03:00 99 38 168/85 (112) 93 11/11/18 02:00 98 34 162/73 (102) 94 11/11/18 01:24 101 36 55 11/11/18 01:00 100 39 153/85 (107) 93 11/11/18 00:00 Mechanical Ventilator 11/11/18 00:00 98.6 95 35 152/75 (100) 95 11/11/18 00:00 45 11/11/18 00:00 88 11/10/18 23:05 94 34 55 11/10/18 23:00 93 27 155/78 (103) 94 11/10/18 22:00 92 32 161/84 (109) 94 11/10/18 21:33 112 166/98 11/10/18 21:30 111 35 157/80 (105) 96 11/10/18 21:05 114 38 55 11/10/18 21:00 113 37 168/84 (112) 97 11/10/18 20:08 119 167/102 11/10/18 20:00 45 11/10/18 20:00 Mechanical Ventilator 11/10/18 20:00 119 11/10/18 20:00 98.3 119 40 167/102 (123) 95 11/10/18 19:09 128 35 55 11/10/18 19:00 122 39 178/95 (122) 93 11/10/18 18:00 123 41 178/98 (124) 89 11/10/18 17:10 114 29 45 11/10/18 17:00 115 40 172/95 (120) 94 11/10/18 16:00 107 11/10/18 16:00 45 11/10/18 16:00 99.4 107 37 166/86 (112) 94 11/10/18 16:00 Mechanical Ventilator 11/10/18 15:00 109 38 171/83 (112) 96 11/10/18 14:40 107 27 45 11/10/18 14:00 106 30 174/88 (116) 96 11/10/18 13:00 106 38 173/91 (118) 11/10/18 12:43 102 38 165/93 (117) 11/10/18 12:40 108 29 45 11/10/18 12:00 98.7 98 32 174/91 (118) 96 11/10/18 12:00 45 11/10/18 12:00 Mechanical Ventilator 11/10/18 12:00 110 11/10/18 11:00 96 35 161/81 (107) 96 11/10/18 10:45 105 26 45 11/10/18 10:30 97 34 158/81 (106) 96 11/10/18 10:00 95 34 156/82 (106) 96 11/10/18 09:57 98.8 11/10/18 09:30 98 36 161/87 (111) 96 11/10/18 09:08 113 28 45 11/10/18 09:00 97 170/75 (106) 96 11/10/18 08:47 109 168/98 11/10/18 08:30 111 36 173/91 (118) 98 11/10/18 08:00 45 11/10/18 08:00 114 11/10/18 08:00 99.2 114 32 170/98 (122) 97 11/10/18 08:00 Mechanical Ventilator 11/10/18 07:15 109 25 45 11/10/18 07:00 114 27 168/98 (121 96 Status: awake Condition: critical HEENT: atraumatic Lungs: clear Heart: HR/BP stable Abdomen: soft, non-tender Extremities: no C/C/E Critical Care - Subjective ROS Limited/Unobtainable: No ICU Day: 4 Interval Events: looks comfortable, still tachy FI02: 55 Vent Support Breath Rate: 12 Vent Support Mode: AC Vent Tidal Volume: 450 Sputum Amount: Moderate PEEP: 5.0 PIP: 41 Tube Feeding Amount: 30 I&O: Intake and Output 11/10/18 11/11/18 19:00 07:00 Intake Total 2096.666 ml 1316.000 ml Output Total 430 ml 1300 ml Balance 1666.666 ml 16.000 ml Intake Free Water 160 ml IV Total 1576.666 ml 986.000 ml Tube Feeding 360 ml 330 ml Output Urine Total 430 ml 1300 ml # Bowel Movements 1 3 Labs: Laboratory Tests Test 11/10/18 18:50 11/11/18 04:10 Stool Occult Blood Pending White Blood Count 17.1 K/UL (4.8-10.8) H Red Blood Count 3.02 M/UL (4.70-6.10) L Hemoglobin 8.7 G/DL (14.2-18.0) L Hematocrit 26.9 % (42.0-52.0) L Mean Corpuscular Volume 89 FL (80-99) Mean Corpuscular Hemoglobin 28.9 PG (27.0-31.0) Mean Corpuscular Hemoglobin Concent 32.4 G/DL (32.0-36.0) Red Cell Distribution Width 15.0 % (11.6-14.8) H Platelet Count 306 K/UL (150-450) Mean Platelet Volume 6.1 FL (6.5-10.1) L Neutrophils (%) (Auto) 83.6 % (45.0-75.0) H Lymphocytes (%) (Auto) 9.9 % (20.0-45.0) L Monocytes (%) (Auto) 6.0 % (1.0-10.0) Eosinophils (%) (Auto) 0.1 % (0.0-3.0) Basophils (%) (Auto) 0.4 % (0.0-2.0) Erythrocyte Sedimentation Rate Pending Sodium Level 148 MMOL/L (136-145) H Potassium Level 2.2 MMOL/L (3.5-5.1) *L Chloride Level 108 MMOL/L (98-107) H Carbon Dioxide Level 34 MMOL/L (21-32) H Anion Gap 7 mmol/L (5-15) Blood Urea Nitrogen 12 mg/dL (7-18) Creatinine 0.8 MG/DL (0.55-1.30) Estimat Glomerular Filtration Rate > 60 mL/min (>60) Glucose Level 124 MG/DL (74-106) H Calcium Level 7.6 MG/DL (8.5-10.1) L Phosphorus Level 2.2 MG/DL (2.5-4.9) L Magnesium Level 1.3 MG/DL (1.8-2.4) L Total Bilirubin 0.8 MG/DL (0.2-1.0) Aspartate Amino Transf (AST/SGOT) 17 U/L (15-37) Alanine Aminotransferase (ALT/SGPT) 16 U/L (12-78) Alkaline Phosphatase 89 U/L (46-116) C-Reactive Protein, Quantitative > 70.0 mg/dL (0.00-0.90) H Total Protein 6.2 G/DL (6.4-8.2) L Albumin 1.5 G/DL (3.4-5.0) L Globulin 4.7 g/dL Albumin/Globulin Ratio 0.3 (1.0-2.7) L Bria Ward MD Nov 11, 2018 06:35
--- NOTE | 2018-11-11 07:03 | NUR ---
RESPIRATORY NOTE: received trach pt on current vent settings. trach size portex 8; patent and secured via trach tie/guard. no visible redness or skin wounds. pt is tachypneic with RR 36. alarms are set and audible with ambu bag at bedside. will cont to monitor.
--- NOTE | 2018-11-11 07:30 | NUR ---
HAND-OFF: Report given to RUDDY Winkler. Endorsed plan of care.
[2018-11-11] MEDS: Heparin 5000 units/ml inj SUBQ SCH ×2 (08:08→20:36)
[2018-11-11] MEDS: Pantoprazole Inj IV SCH (08:09)
--- NOTE | 2018-11-11 08:33 | NUR ---
NURSE NOTES: Report received from RUDDY Vázquez. Patient awake , alert and oriented 3.On trach/vent portex 8, AC 12 VT 450 FiO2 55 and Peep 5.Patient noted with low grade fever 99.5 and cooling measure applied.Saline lock RAC/20G and right subclavian TLC dressing clean and intact running NS at 75cc/hr.Abdomen soft and non distended and bowel sounds present in all 4 quadrants.GT feeding in place with placement intact.No residual at this time.HOB elevated at 35 degree to prevent risks for aspiration.Condom catheter draining yellow clear urine with no apparent sediments.Potassium level 2.2 . Phosphorous 2.2 and Mg 1.3. Will follow up with new orders.Mouth care done and patient suctioned as tolerated white small thin mucous.Turned and repositioned for skin management.3/4 Bedside rails up for safety and repositioning.Bilateral soft wrist restraints in place release during care with no apparent skin breakdown.Bed in lower position and lock.Call light within easy reach at all the time. All needs attended at the patient level of comfort.Kept clean dry and comfortable.
--- NOTE | 2018-11-11 10:12 | NUR ---
NURSE NOTES: Patient awake, with no apparent acute distress. Potassium , Magnesium and Phosphorus replacement covered by Dr Ward.Patient turned and repositioned.HOB elevated to prevent aspiration.Tolerate well feeding. Restraints release during repositioning. Kept clean dry and comfortable.Will continue to monitor
--- NOTE | 2018-11-11 12:05 | NUR ---
NURSE NOTES: Patient asleep with no apparent acute distress. Noted with intermittent episode of tachycardia and asymptomatic at this time.Will continue to monitor, turned and repositioned for comfort and skin management.
[2018-11-11] MEDS ORDERED: Sodium Phosphate 30 MM in NS 275 ML IV ONE (12:45)
--- NOTE | 2018-11-11 13:19 | Surgery Progress Note ---
Surgery Progress Note Subjective Procedure Performed Right subclavian central venous catheter insertion Additional Comments Patient seen and examined bedside. Awake alert responsive following simple commands. On vent support. KUB noted. Chest x-ray worsening. Leukocytosis. Elevated CRP ESR. electrolytes abnormal Objective Last 24 Hour Vital Signs Date Time Temp Pulse Resp B/P (MAP) Pulse Ox O2 Delivery O2 Flow Rate FiO2 11/11/18 12:38 96 42 50 11/11/18 12:00 50 11/11/18 12:00 98.7 99 35 153/77 (102) 93 11/11/18 12:00 Mechanical Ventilator 11/11/18 11:00 91 27 156/75 (102) 95 11/11/18 10:37 96 37 50 11/11/18 10:00 88 31 149/74 (99) 96 11/11/18 09:00 84 34 130/59 (82) 97 11/11/18 08:37 82 36 50 11/11/18 08:07 100 151/65 11/11/18 08:00 Mechanical Ventilator 11/11/18 08:00 55 11/11/18 08:00 97 11/11/18 08:00 99.5 107 35 151/65 (93) 95 11/11/18 07:01 120 38 55 11/11/18 07:00 110 37 155/67 (96) 95 11/11/18 06:00 112 37 161/77 (105) 93 11/11/18 05:00 110 38 165/75 (105) 92 11/11/18 04:59 105 40 55 11/11/18 04:00 98.8 107 35 163/83 (109) 95 11/11/18 04:00 Mechanical Ventilator 11/11/18 04:00 45 11/11/18 04:00 101 11/11/18 03:02 102 38 55 11/11/18 03:00 99 38 168/85 (112) 93 11/11/18 02:00 98 34 162/73 (102) 94 11/11/18 01:24 101 36 55 11/11/18 01:00 100 39 153/85 (107) 93 11/11/18 00:00 Mechanical Ventilator 11/11/18 00:00 98.6 95 35 152/75 (100) 95 11/11/18 00:00 45 11/11/18 00:00 88 11/10/18 23:05 94 34 55 11/10/18 23:00 93 27 155/78 (103) 94 11/10/18 22:00 92 32 161/84 (109) 94 11/10/18 21:33 112 166/98 11/10/18 21:30 111 35 157/80 (105) 96 11/10/18 21:05 114 38 55 11/10/18 21:00 113 37 168/84 (112) 97 11/10/18 20:08 119 167/102 11/10/18 20:00 45 11/10/18 20:00 Mechanical Ventilator 11/10/18 20:00 119 11/10/18 20:00 98.3 119 40 167/102 (123) 95 11/10/18 19:09 128 35 55 11/10/18 19:00 122 39 178/95 (122) 93 11/10/18 18:00 123 41 178/98 (124) 89 11/10/18 17:10 114 29 45 11/10/18 17:00 115 40 172/95 (120) 94 11/10/18 16:00 107 11/10/18 16:00 45 11/10/18 16:00 99.4 107 37 166/86 (112) 94 11/10/18 16:00 Mechanical Ventilator 11/10/18 15:00 109 38 171/83 (112) 96 11/10/18 14:40 107 27 45 11/10/18 14:00 106 30 174/88 (116) 96 I&O Intake and Output 11/10/18 11/11/18 18:59 06:59 Intake Total 2096.666 ml 1496.000 ml Output Total 400 ml 1330 ml Balance 1696.666 ml 166.000 ml Intake Free Water 160 ml IV Total 1576.666 ml 1136.000 ml Tube Feeding 360 ml 360 ml Output Urine Total 400 ml 1330 ml # Bowel Movements 1 3 Cardiovascular: RSR Respiratory: clear Abdomen: soft, flat, non-tender, non-distended, decreased bowel sounds Extremities: no cyanosis Laboratory Tests Test 11/10/18 18:50 11/11/18 04:10 Stool Occult Blood Negative (NEGATIVE) White Blood Count 17.1 K/UL (4.8-10.8) H Red Blood Count 3.02 M/UL (4.70-6.10) L Hemoglobin 8.7 G/DL (14.2-18.0) L Hematocrit 26.9 % (42.0-52.0) L Mean Corpuscular Volume 89 FL (80-99) Mean Corpuscular Hemoglobin 28.9 PG (27.0-31.0) Mean Corpuscular Hemoglobin Concent 32.4 G/DL (32.0-36.0) Red Cell Distribution Width 15.0 % (11.6-14.8) H Platelet Count 306 K/UL (150-450) Mean Platelet Volume 6.1 FL (6.5-10.1) L Neutrophils (%) (Auto) 83.6 % (45.0-75.0) H Lymphocytes (%) (Auto) 9.9 % (20.0-45.0) L Monocytes (%) (Auto) 6.0 % (1.0-10.0) Eosinophils (%) (Auto) 0.1 % (0.0-3.0) Basophils (%) (Auto) 0.4 % (0.0-2.0) Erythrocyte Sedimentation Rate 124 MM/HR (0-20) H Sodium Level 148 MMOL/L (136-145) H Potassium Level 2.2 MMOL/L (3.5-5.1) *L Chloride Level 108 MMOL/L (98-107) H Carbon Dioxide Level 34 MMOL/L (21-32) H Anion Gap 7 mmol/L (5-15) Blood Urea Nitrogen 12 mg/dL (7-18) Creatinine 0.8 MG/DL (0.55-1.30) Estimat Glomerular Filtration Rate > 60 mL/min (>60) Glucose Level 124 MG/DL (74-106) H Calcium Level 7.6 MG/DL (8.5-10.1) L Phosphorus Level 2.2 MG/DL (2.5-4.9) L Magnesium Level 1.3 MG/DL (1.8-2.4) L Total Bilirubin 0.8 MG/DL (0.2-1.0) Aspartate Amino Transf (AST/SGOT) 17 U/L (15-37) Alanine Aminotransferase (ALT/SGPT) 16 U/L (12-78) Alkaline Phosphatase 89 U/L (46-116) C-Reactive Protein, Quantitative > 70.0 mg/dL (0.00-0.90) H Total Protein 6.2 G/DL (6.4-8.2) L Albumin 1.5 G/DL (3.4-5.0) L Globulin 4.7 g/dL Albumin/Globulin Ratio 0.3 (1.0-2.7) L Plan Problems: (1) Abdominal distension Assessment & Plan: abd distention possible sbo CT noted as below NPO IV fluids IV Abx resuscitation AM labs CXR worsening KUB noted and stable g tube to suction will follow with recs (2) Sepsis Assessment & Plan: leukocytosis anemia lactic acidosis abnormal labs resp depression abd distention NPO IV fluids IV Abx resuscitation AM labs CXR AM KUB g tube to suction central line will follow with recs thank you Chest: The chest demonstrates extensive dense consolidation of the entire right lung. There is also atelectasis of much of the right lower lobe. There is a small amount of pleural fluid on the right. Extensive although less severe interstitial and airspace opacities are also seen in the left upper and lower lobes, with some areas of consolidated lung, interstitial edema and groundglass parenchymal opacity elsewhere. There is trace pleural fluid on the left. The heart is mildly enlarged. There is a small amount of pericardial effusion laterally. No mediastinal or hilar mass or adenopathy. There is a tracheostomy. The included thyroid is unremarkable. The esophagus is unremarkable. The bones are unremarkable. Abdomen pelvis:There is diffuse distention of the small bowel which is diffusely fluid-filled. Distention extends throughout most of length of the small bowel. The transition point appears to be at the level of the distal ileum in the anterior left lower quadrant. Transition point is somewhat gradual. Circumferential beads of gas in the left upper quadrant small bowel loops raise suspicion for small bowel pneumatosis. However, this is not definitely evident in the portions of small bowel that are likely filled with gas, so could represent so-called pseudopneumatosis related to gas between the bowel wall and small bowel contents. There is no bowel wall thickening demonstrated. The proximal mesenteric vessels are patent, as are the superior mesenteric vein and splenic vein. There is a gastrostomy in place. The cecum is distended. The appendix is normal. There is distention of the rectum with feces and mild wall thickening of the rectum. There is trace free fluid in Morison's pouch. No free intraperitoneal gas. The liver, gallbladder, bile ducts, pancreas, spleen, adrenals are unremarkable. Subcentimeter low-attenuation lesions in the kidneys most likely represent cysts The bones demonstrate mild degenerative spondylosis changes. IMPRESSION: Chest: Extensive consolidation of the right lung, most likely pneumonia. There is also a component of atelectasis. Less extensive but still severe parenchymal opacities on the left, most likely represent pneumonia but could also represent pulmonary edema Small bilateral pleural effusions Cardiomegaly Tracheostomy Abdomen pelvis: Diffuse distention of the small bowel which is diffusely fluid-filled. There is tapering to normal caliber distal ileum. There is also some distention of the cecum. Findings may be on a functional basis, but the possibility of distal small bowel obstruction should also be considered. There is also evidence of small bowel pneumatosis versus pseudopneumatosis. There is no evidence of proximal arterial insufficiency or of mesenteric venous insufficiency Distended rectum with feces, mild wall thickening of the rectum could indicate stercoral proctitis Trace free fluid in Morison's pouch Gastrostomy Incidental finding of degenerative spondylosis Kevin Conn Nov 11, 2018 13:19
[2018-11-11] MEDS ORDERED: NS 275ml ONE (14:02)
[2018-11-11] MEDS ORDERED: Tubing IV Secondary IV ONE (14:02)
--- NOTE | 2018-11-11 14:15 | NUR ---
NURSE NOTES: Patient seen by Dr Moreno with order to move patient in tele.SBP 151 and HR 90 at this time.Turned and repositioned.HOB elevated to prevent aspiration.Kept clean dry and comfortable. Addendum: 11/11/18 at 1527 by Cathi Degroot RN Correction:order to transfer to [facility]
--- NOTE | 2018-11-11 15:12 | Cardiology Progress Note ---
Assessment/Plan Assessment/Plan [id number] pt started on cardizem by dr fierro will follow Objective Last 24 Hour Vital Signs Date Time Temp Pulse Resp B/P (MAP) Pulse Ox O2 Delivery O2 Flow Rate FiO2 11/11/18 14:49 99 41 50 11/11/18 14:00 98 34 151/71 (97) 93 11/11/18 13:00 103 34 153/78 (103) 93 11/11/18 12:38 96 42 50 11/11/18 12:00 50 11/11/18 12:00 98.7 99 35 153/77 (102) 93 11/11/18 12:00 Mechanical Ventilator 11/11/18 12:00 93 11/11/18 11:00 91 27 156/75 (102) 95 11/11/18 10:37 96 37 50 11/11/18 10:00 88 31 149/74 (99) 96 11/11/18 09:00 84 34 130/59 (82) 97 11/11/18 08:37 82 36 50 11/11/18 08:07 100 151/65 11/11/18 08:00 Mechanical Ventilator 11/11/18 08:00 55 11/11/18 08:00 97 11/11/18 08:00 99.5 107 35 151/65 (93) 95 11/11/18 07:01 120 38 55 11/11/18 07:00 110 37 155/67 (96) 95 11/11/18 06:00 112 37 161/77 (105) 93 11/11/18 05:00 110 38 165/75 (105) 92 11/11/18 04:59 105 40 55 11/11/18 04:00 98.8 107 35 163/83 (109) 95 11/11/18 04:00 Mechanical Ventilator 11/11/18 04:00 45 11/11/18 04:00 101 11/11/18 03:02 102 38 55 11/11/18 03:00 99 38 168/85 (112) 93 11/11/18 02:00 98 34 162/73 (102) 94 11/11/18 01:24 101 36 55 11/11/18 01:00 100 39 153/85 (107) 93 11/11/18 00:00 Mechanical Ventilator 11/11/18 00:00 98.6 95 35 152/75 (100) 95 11/11/18 00:00 45 11/11/18 00:00 88 11/10/18 23:05 94 34 55 11/10/18 23:00 93 27 155/78 (103) 94 11/10/18 22:00 92 32 161/84 (109) 94 11/10/18 21:33 112 166/98 11/10/18 21:30 111 35 157/80 (105) 96 11/10/18 21:05 114 38 55 11/10/18 21:00 113 37 168/84 (112) 97 11/10/18 20:08 119 167/102 11/10/18 20:00 45 11/10/18 20:00 Mechanical Ventilator 11/10/18 20:00 119 11/10/18 20:00 98.3 119 40 167/102 (123) 95 11/10/18 19:09 128 35 55 11/10/18 19:00 122 39 178/95 (122) 93 11/10/18 18:00 123 41 178/98 (124) 89 11/10/18 17:10 114 29 45 11/10/18 17:00 115 40 172/95 (120) 94 11/10/18 16:00 107 11/10/18 16:00 45 11/10/18 16:00 99.4 107 37 166/86 (112) 94 11/10/18 16:00 Mechanical Ventilator Intake and Output 11/10/18 11/11/18 18:59 06:59 Intake Total 2096.666 ml 1496.000 ml Output Total 400 ml 1330 ml Balance 1696.666 ml 166.000 ml Intake Free Water 160 ml IV Total 1576.666 ml 1136.000 ml Tube Feeding 360 ml 360 ml Output Urine Total 400 ml 1330 ml # Bowel Movements 1 3 Laboratory Tests Test 11/10/18 18:50 11/11/18 04:10 Stool Occult Blood Negative (NEGATIVE) White Blood Count 17.1 K/UL (4.8-10.8) H Red Blood Count 3.02 M/UL (4.70-6.10) L Hemoglobin 8.7 G/DL (14.2-18.0) L Hematocrit 26.9 % (42.0-52.0) L Mean Corpuscular Volume 89 FL (80-99) Mean Corpuscular Hemoglobin 28.9 PG (27.0-31.0) Mean Corpuscular Hemoglobin Concent 32.4 G/DL (32.0-36.0) Red Cell Distribution Width 15.0 % (11.6-14.8) H Platelet Count 306 K/UL (150-450) Mean Platelet Volume 6.1 FL (6.5-10.1) L Neutrophils (%) (Auto) 83.6 % (45.0-75.0) H Lymphocytes (%) (Auto) 9.9 % (20.0-45.0) L Monocytes (%) (Auto) 6.0 % (1.0-10.0) Eosinophils (%) (Auto) 0.1 % (0.0-3.0) Basophils (%) (Auto) 0.4 % (0.0-2.0) Erythrocyte Sedimentation Rate 124 MM/HR (0-20) H Sodium Level 148 MMOL/L (136-145) H Potassium Level 2.2 MMOL/L (3.5-5.1) *L Chloride Level 108 MMOL/L (98-107) H Carbon Dioxide Level 34 MMOL/L (21-32) H Anion Gap 7 mmol/L (5-15) Blood Urea Nitrogen 12 mg/dL (7-18) Creatinine 0.8 MG/DL (0.55-1.30) Estimat Glomerular Filtration Rate > 60 mL/min (>60) Glucose Level 124 MG/DL (74-106) H Calcium Level 7.6 MG/DL (8.5-10.1) L Phosphorus Level 2.2 MG/DL (2.5-4.9) L Magnesium Level 1.3 MG/DL (1.8-2.4) L Total Bilirubin 0.8 MG/DL (0.2-1.0) Aspartate Amino Transf (AST/SGOT) 17 U/L (15-37) Alanine Aminotransferase (ALT/SGPT) 16 U/L (12-78) Alkaline Phosphatase 89 U/L (46-116) C-Reactive Protein, Quantitative > 70.0 mg/dL (0.00-0.90) H Total Protein 6.2 G/DL (6.4-8.2) L Albumin 1.5 G/DL (3.4-5.0) L Globulin 4.7 g/dL Albumin/Globulin Ratio 0.3 (1.0-2.7) L Esteban Roman MD Nov 11, 2018 15:12
--- NOTE | 2018-11-11 16:25 | NUR ---
NURSE NOTES: Patient FiO2 changed to 55% due to intermittent episode of desaturation at 89%. Will continue to monitor.Turned and repositioned.HOB elevated to prevent aspiration.Mouth care done, kept clean, dry and comfortable Addendum: 11/11/18 at 1627 by Cathi Degroot RN Cardizem 90mg given
[2018-11-11] MEDS ORDERED: dilTIAZem HCl 90mg tab ORAL SCH (16:30)
--- NOTE | 2018-11-11 18:27 | NUR ---
NURSE NOTES: ADLs done, turned and repositioned.Mouth care done.HOB elevated to prevent aspiration.Kept clean dry and comfortable.call light within easy reach
--- NOTE | 2018-11-11 18:27 | NUR ---
CASE MANAGEMENT: REVIEW 11/11/2018 SI:SEPSIS. T 98.7 HR 99 RR 35 B/P 153/77 SATS 93% ON MECH VENT FIO2 50 LABS: WBC 17.1 NA 148 K 2.2 CL 108 CO2 34 GLU 124 CA 7.4 PHOS 2.2 MG 1.3 CRP >70 IS: IVF @ 75 mL/HR PROTONIX IV QD CARDIZEM PO QD K DUR PO X1 SODIUM PHOS IV X1 LOPRESSOR PO Q12H VANCO IV Q12H CEFTRIAXONE IV Q24H ICU PLAN OF CARE: TRANSFER TO [facility]
--- NOTE | 2018-11-11 18:51 | NUR ---
RESPIRATORY NOTE: Received pt on AC 12, 450VT, 55%, PEEP +5. Pt is trach-dependent w/ a cuffed, Portex 8 [place] Suction tube. Pt is alert/awake, follows commands. B/S yeison. rales/rhonchi/diminishedi, sxn minimal amounts of thin, white secretions. Vent plugged into red outlet, ambubag at bedside. Pt in no apparent distress at this time. Will continue to monitor pt.
--- NOTE | 2018-11-11 19:10 | NUR ---
NURSE NOTES: Pt report received from [employer]. pt remains stable. pt vital signs are stable. pt is alert oriented times 2 with no abnormalities neuro amaya. pt placed on a cardiac rehabilitation program director showing NSR, no abnormalities noted. pt is on a trach to vent, satting well at 99%, no distress noted. pt bed is low, locked, armed, bed rails up times 3, call light within reach. will continue plan of care.
--- NOTE | 2018-11-11 19:32 | NUR ---
HAND-OFF: Report given to RUDDY Palomares.
[2018-11-11] MEDS ORDERED: Albuterol/Ipratropium 3ml neb HHN PRN (20:15)
[2018-11-11] MEDS ORDERED: Miralax 17gm pkt ORAL PRN (20:15)
[2018-11-11] MEDS ORDERED: LORazepam Inj 2mg/ml 1ml IV PRN (20:15)
[2018-11-11] MEDS ORDERED: Morphine Sulfate 4mg/ml Inj (IV USE ONLY) IVP PRN (20:15)
--- NOTE | 2018-11-11 20:15 | Consultation ---
DATE OF CONSULTATION: 11/11/2018 CARDIOLOGY CONSULTATION CONSULTING PHYSICIAN: Esteban Roman M.D. REFERRING PHYSICIAN: Bria Ward M.D. REASON FOR REFERRAL: Hypertension. HISTORY OF PRESENT ILLNESS: This is a 68-year-old gentleman, who is on mechanical ventilator at the present time, not able to provide any meaningful history. The nursing staff asked me to address the patient's blood pressure being elevated. A dose of Cardizem was given. The patient was seen today in consultation. He denies any chest pain or shortness of breath at the present time although he is on a mechanical ventilator. He is not verbally communicative. He is able to communicate with his hands and his head gestures. He does not have any palpitations. No dizziness or lightheadedness either. PAST MEDICAL HISTORY: Obtained from the patient's recent hospitalization at [facility] where he was hospitalized on October 05, 2018 with left-sided chest pain at that time and he had a CT angiogram that apparently was negative. He does have a history of hyponatremia, esophageal ulcer without any active bleeding noted on a recent endoscopy, sensitive Staphylococcus aureus bacteremia, alcohol abuse, questionable withdrawal, respiratory failure, and GI bleeding. He then underwent a transesophageal echocardiogram during that hospitalization for severe sepsis. He has metabolic encephalopathy and alcohol withdrawal syndrome, small-bowel ileus, multiple left-sided fractures status post multiple falls related to chest pain. A CT scan at that time showed an abundant colonic feces. He has right middle lobe and left lower lobe patchy infiltrates. He also carries a diagnosis of ventilator dependence as well as schizophrenia and anxiety disorder. ALLERGIES: He is not known to be allergic to any medications. SOCIAL HISTORY: Smoking history is unknown and of course, he seems to have problem with drugs. He previously was homeless and sheltered according to the old records. REVIEW OF SYSTEMS: GASTROINTESTINAL: Denies any abdominal pain. Denies any nausea or vomiting. GENITOURINARY: He has a Hahn catheter. PULMONARY: He does have some coughing. CONSTITUTIONAL: Denies any chills. PHYSICAL EXAMINATION: GENERAL: Shows to be elderly gentleman, on a mechanical ventilation, awake, and responsive. VITAL SIGNS: His blood pressure over the past few hours has been ranging as low as 130/59 to as high as 174/88 when I was called about his blood pressure last night. NECK: Trach is in place. LUNGS: Anteriorly appeared to have some end-expiratory wheezes. Some rhonchi noted. Borderline tachypnea. CARDIAC: Regular rate and rhythm. No heaves or thrills. ABDOMEN: Soft. EXTREMITIES: He has no edema. He is able to move his distal extremities to command. LABORATORY AND DIAGNOSTIC DATA: White count of 17.1 up from 15, hemoglobin 8.7, and a platelet count of 306,000. Latest blood gas was a few days ago, none recently. Sodium 148, potassium 3.2, chloride 108, bicarb 34, BUN 12, creatinine 0.8, and glucose of 124. Calcium is 7.6 and magnesium of 1.3. Phosphorus of 2.2. His CRP greater than 70. His proBNP of 1600 and his total protein is 6.2 and albumin of 1. His B12 level of 735. His folic acid level was 24.2. Those were all normal. He had one set of cardiac enzymes that were done on the 11/07/2018 was normal. His total CK at the time of his presentation was only 21. His liver function tests are normal. Coags, INR 1.3 and a PTT of 40. Urinalysis is 0 to 2 wbc's and 2 to [address] scan of the abdomen and pelvis was performed here that showed extensive consolidation in the right lung consistent with pneumonia, opacity in the left was likely of pneumonia as well, cardiomegaly, small pleural effusion in the left side, colonic distention with feces with mild wall thickening, and gastrostomy tube. He had a chest x-ray performed yesterday that showed worsening bilateral infiltrates. His venous duplex was negative. His EKG shows sinus tachycardia of 103. Really, no significant ST or T-wave abnormalities. ASSESSMENT: 1. Respiratory failure, acute on chronic. 2. Pneumonia. 3. Respiratory dependence. 4. Hypertension. 5. History of alcohol withdrawal. 6. History of GI bleed status post endoscopy. 7. Hypernatremia. PLAN: Dr. Ward, this patient was seen in cardiac consultation. The patient was already seen by Dr. Moreno, who has started the patient on Cardizem orally or through the G-tube, which is at this time adequate. I think he may eventually need to be taken off of his beta-blockers in light of supported history of COPD. I did give the patient a dose of amlodipine last night to which he seemed to have responded. We will see how he responds to the medication that was provided by Dr. Moreno in respect to Cardizem. Pulmonary and ventilator treatment as per yourself. He is on antibiotics. We will follow the patient along for blood pressure as needed. Esteban Roman M.D. DR: APOORVA JOB#: [id number] CC:
[2018-11-11] MEDS: Dyna-Hex 2% Top Sol 2oz TOPIC SCH (20:24)
[2018-11-11] MEDS: cefTRIAXone 1 GM in D5W 55 ML IVPB SCH (20:30)
--- NOTE | 2018-11-11 23:45 | Progress Note ---
DATE: 11/11/2018 SUBJECTIVE: The patient's tachycardia is now improved. The heart rate is below 100. His blood pressure is controlled with but insufficiently. PHYSICAL EXAMINATION: VITAL SIGNS: Blood pressure 161/71, pulse is 98, respirations 74, and temperature is 98.7. HEENT: Eyes were normal. ENT, mucous membranes were moist and intact. NECK: Supple with no JVD without lymph nodes. Tracheostomy site is clean. LUNGS: Clear without rhonchi, rales, or wheezing. Secretions are small, thin, and garnica. HEART: Normal sounds with regular heart beats. No S3, S4, or pericardial rub. There is near tachycardia at rest. ABDOMEN: Soft and nontender with normal bowel sounds. Gastrostomy site is clean. EXTREMITIES: Warm without cyanosis, clubbing, or edema. LABORATORY AND DIAGNOSTIC DATA: His hemoglobin is 8.7, hematocrit 26.9 with MCV of 89, WBC of 17.1, and platelets of 306,000. His WBC was 13.8 on November 09, 2018 and 15.0 on November 10, 2018. His sodium has remained at 124. His BUN and creatinine are 12 and 0.8 respectively. His sodium was 148, potassium 2.2, chloride 108, and CO2 is 34. IMPRESSION: The patient remained hypokalemic because of the respiratory rate. KCl will be given 20 mEq IV. His calcium is 7.6. His phosphorus is 2.2 and magnesium is 1.3. His CRP is more than 70. Stool for occult blood was negative. His heart rate is controlled. The patient can come out of the ICU and go to the [facility]. His current antibiotic ceftriaxone 1 g IV piggyback q.24 hours in order to control his leukocytosis. He remained on vancomycin 750 mg IV piggyback q.12 h. His cefepime has been discontinued as well as amikacin. The patient is currently on metoprolol 100 mg . Diltiazem 120 mg will be added as well. Repeat laboratory tests will be done in the a.m. Pierre Moreno M.D. DR: JOSEFINA JOB#: [id number] CC:
[2018-11-12] VITALS: BP 143/77
[2018-11-12] MEDS: Vancomycin 750 MG in NS 275 ML IVPB SCH ×2 (00:42→13:52)
[2018-11-12 04:00] VITALS: BP 149/75
[2018-11-12] MEDS: dilTIAZem HCl 90mg tab ORAL SCH ×3 (05:55→18:06)
[2018-11-12 06:34] LABS: BASOPHILS % (AUTO) 0.8 % (0.0-2.0); HEMATOCRIT 25.2 % (42.0-52.0); LYMPHOCYTES % (AUTO) 12.6 % (20.0-45.0); MEAN CORPUSCULAR VOLUME 89 FL (80-99); MONOCYTES % (AUTO) 8.7 % (1.0-10.0); PLATELET COUNT 289 K/UL (150-450); RED BLOOD COUNT 2.82 M/UL (4.70-6.10); RED CELL DISTRIBUTION WIDTH 15.2 % (11.6-14.8); WHITE BLOOD COUNT 13.2 K/UL (4.8-10.8)
[2018-11-12 07:05] LABS: ALANINE AMINOTRANSFERASE 15 U/L (12-78); ALBUMIN 1.3 G/DL (3.4-5.0); ALBUMIN/GLOBULIN RATIO 0.3 (1.0-2.7); ALKALINE PHOSPHATASE 79 U/L (46-116); ANION GAP 4 mmol/L (5-15); ASPARTATE AMINO TRANSFERASE 15 U/L (15-37); BILIRUBIN,TOTAL 0.6 MG/DL (0.2-1.0); BLOOD UREA NITROGEN 10 mg/dL (7-18); CALCIUM 7.3 MG/DL (8.5-10.1); CARBON DIOXIDE 37 MMOL/L (21-32); CHLORIDE 109 MMOL/L (98-107); CREATININE 0.9 MG/DL (0.55-1.30); SODIUM 150 MMOL/L (136-145)
[2018-11-12 07:07] LABS: POTASSIUM 2.2 MMOL/L (3.5-5.1)
--- NOTE | 2018-11-12 07:17 | NUR ---
NURSE NOTES: K level of 2.[address] Ward. Awaiting call back at this time.
--- NOTE | 2018-11-12 07:25 | NUR ---
NURSE NOTES: Received report from Angelito Gonzalez RN. Patient awake in bed, oriented x 2, able to follow commands. Trach to vent with settings of AC 12, TV 450, FiO2 55%, PEEP 5, no s/s of respiratory distress noted. GT feeding of Jevity 1.2 @ 30 cc/hr, no residuals noted. HoB elevated. Condom catheter in place and draining well. Right subclavian TLC patent and asymptomatic. Right AC 20g IV site infusing NS @ 75 cc/hr, no s/s of infiltration noted. Bilateral wrist restraints in place, skin intact, peripheral pulses present, no edema or redness noted. Patient attempts to pull out devices, unable to comprehend teaching regarding removal criteria at this time. Bed locked in lowest position with side rails up x 3. All needs attended to. Call light within reach. Will continue to monitor.
--- NOTE | 2018-11-12 07:27 | NUR ---
HAND-OFF: Report given to Maame VU.
--- NOTE | 2018-11-12 07:51 | NUR ---
NURSE NOTES: Received telephone orders from Dr. Ward for KCl 80 meq IV over 8 hours, orders noted and carried out.
--- NOTE | 2018-11-12 07:58 | NUR ---
CASE MANAGEMENT: REVIEW 11/12/2018 SI:SEPSIS. T 98.4 HR 87 RR 30 B/P 149/75 SATS 99% ON MECH VENT FIO2 50 LABS: WBC 13.2 K 2.2 CL 109 CO2 37 GLU 137 CA 7.3 BNP 19687 IS: IVF @ 75 mL/HR PROTONIX IV QD CARDIZEM PO QD KCL IV Q2H SODIUM PHOS IV X1 LOPRESSOR PO Q12H VANCO IV Q12H CEFTRIAXONE IV Q24H SDU
[2018-11-12 08:00] VITALS: BP 132/66
--- NOTE | 2018-11-12 08:00 | NUR ---
RESPIRATORY NOTE: Pt received on current charted vent settings. Tolerating well. No respiratory distress noted. Ptx 8 tracheostomy tube secured with trach tie. b/s bilateral rhonchi with small, thick white secretions. Vent plugged into red outlet. Alarms set and audible. Will continue to monitor.
[2018-11-12] MEDS: Pantoprazole Inj IV SCH (09:34)
[2018-11-12] MEDS: Heparin 5000 units/ml inj SUBQ SCH ×2 (09:34→20:52)
--- NOTE | 2018-11-12 09:38 | Diagnostic Imaging Report ---
EXAM: XR Chest, 1 View CLINICAL HISTORY: DYSPNEA TECHNIQUE: Frontal view of the chest. COMPARISON: Chest x-rays dated 11 10 18 FINDINGS: Lungs: Mild improved aeration in bilateral lungs, with persistent diffuse patchy interstitial and alveolar opacities. Pleural space: Unremarkable. The costophrenic angles are sharp. No visible pneumothorax. Heart: Unremarkable. No cardiomegaly. Mediastinum: Unremarkable. Bones joints: Unremarkable. Tubes, lines and devices: Stable positioning of a right subclavian central catheter and the tracheostomy tube. Telemetry leads overlie the thorax. IMPRESSION: Diffuse bilateral patchy interstitial and alveolar opacities, mildly improved compared to the prior exam.
--- NOTE | 2018-11-12 11:00 | Infectious Diseases Prog Note ---
Assessment/Plan Assessment/Plan The patient is a 68-year-old male with, Sepsis/septic shock, Sp Fever, sp Leukocytosis increased Aspiration pneumonia SCx: MRSA, EColi Probable small bowel obstruction. CT shows ? small bowel obstructions/small bowel pneumatosis/bilateral lower lung infiltrate, right more than left. History of emesis and bacteremia in September 2018. CT of the chest showed extensive consolidation of right lung, cardiomegaly, possible small bowel obstruction, possible small bowel pneumatosis History of ventilator-dependent respiratory failure. Status post PEG. Status post trach. History of alcohol abuse. History of schizophrenia. PLAN: continue the patient on IV vancomycin # 5/14 , add IV rocephin # 3/7 DC cefepime, amikacin # 3 Monitor cultures (blood, urine,). Monitor chest x-ray. Monitor CBC and CMP. Subjective Allergies: Coded Allergies: No Known Allergies (Unverified , 11/07/18) Subjective Afebrile No leukocytosis Objective Vital Signs Last 24 Hour Vital Signs Date Time Temp Pulse Resp B/P (MAP) Pulse Ox O2 Delivery O2 Flow Rate FiO2 11/12/18 10:31 67 32 55 11/12/18 09:34 87 132/66 11/12/18 08:54 87 31 55 11/12/18 08:00 98.1 86 22 132/66 (88) 96 11/12/18 06:51 82 30 55 11/12/18 05:55 93 148/70 11/12/18 05:07 91 32 55 11/12/18 04:00 98 11/12/18 04:00 50 11/12/18 04:00 98.4 87 30 149/75 (99) 99 11/12/18 04:00 Mechanical Ventilator 11/12/18 03:20 94 34 55 11/12/18 00:43 72 29 55 11/12/18 00:00 Mechanical Ventilator 11/12/18 00:00 100.0 86 34 143/77 (99) 97 11/12/18 00:00 50 11/12/18 00:00 82 11/11/18 23:15 85 30 55 11/11/18 20:57 97 30 55 11/11/18 20:33 93 132/69 11/11/18 20:00 98.9 93 34 132/69 (90) 95 11/11/18 20:00 Mechanical Ventilator 11/11/18 20:00 89 11/11/18 20:00 50 11/11/18 18:49 100 29 55 11/11/18 18:00 87 32 126/64 (84) 94 11/11/18 17:00 93 36 123/66 (85) 93 11/11/18 16:40 90 36 55 11/11/18 16:24 55 11/11/18 16:00 Mechanical Ventilator 11/11/18 16:00 50 11/11/18 16:00 93 11/11/18 16:00 90 36 119/59 (79) 93 11/11/18 15:47 95 133/62 11/11/18 15:00 102 34 147/73 (97) 93 11/11/18 14:49 99 41 50 11/11/18 14:00 98 34 151/71 (97) 93 11/11/18 13:00 103 34 153/78 (103) 93 11/11/18 12:38 96 42 50 11/11/18 12:00 50 11/11/18 12:00 98.7 99 35 153/77 (102) 93 11/11/18 12:00 Mechanical Ventilator 11/11/18 12:00 93 11/11/18 11:00 91 27 156/75 (102) 95 Height (Feet): 5 Height (Inches): 8.00 Weight (Pounds): 144 Objective HEENT: NCAT, mucous membranes moist Respiratory/Chest: decreased breath sounds Cardiovascular: normal rate, S1, S2 Abdomen: soft, non tender Laboratory Tests Test 11/12/18 04:00 White Blood Count 13.2 K/UL (4.8-10.8) H Red Blood Count 2.82 M/UL (4.70-6.10) L Hemoglobin 8.0 G/DL (14.2-18.0) L Hematocrit 25.2 % (42.0-52.0) L Mean Corpuscular Volume 89 FL (80-99) Mean Corpuscular Hemoglobin 28.4 PG (27.0-31.0) Mean Corpuscular Hemoglobin Concent 31.8 G/DL (32.0-36.0) L Red Cell Distribution Width 15.2 % (11.6-14.8) H Platelet Count 289 K/UL (150-450) Mean Platelet Volume 6.0 FL (6.5-10.1) L Neutrophils (%) (Auto) 78.0 % (45.0-75.0) H Lymphocytes (%) (Auto) 12.6 % (20.0-45.0) L Monocytes (%) (Auto) 8.7 % (1.0-10.0) Eosinophils (%) (Auto) 0.0 % (0.0-3.0) Basophils (%) (Auto) 0.8 % (0.0-2.0) Sodium Level 150 MMOL/L (136-145) H Potassium Level 2.2 MMOL/L (3.5-5.1) *L Chloride Level 109 MMOL/L (98-107) H Carbon Dioxide Level 37 MMOL/L (21-32) H Anion Gap 4 mmol/L (5-15) L Blood Urea Nitrogen 10 mg/dL (7-18) Creatinine 0.9 MG/DL (0.55-1.30) Estimat Glomerular Filtration Rate > 60 mL/min (>60) Glucose Level 137 MG/DL (74-106) H Calcium Level 7.3 MG/DL (8.5-10.1) L Total Bilirubin 0.6 MG/DL (0.2-1.0) Aspartate Amino Transf (AST/SGOT) 15 U/L (15-37) Alanine Aminotransferase (ALT/SGPT) 15 U/L (12-78) Alkaline Phosphatase 79 U/L (46-116) Pro-B-Type Natriuretic Peptide 97957 pg/mL (0-125) H Total Protein 5.7 G/DL (6.4-8.2) L Albumin 1.3 G/DL (3.4-5.0) L Globulin 4.4 g/dL Albumin/Globulin Ratio 0.3 (1.0-2.7) L Current Medications Medications (Trade) Dose Ordered Sig/Ingrid Route PRN Reason Start Time Stop Time Status Last Admin Dose Admin Acetaminophen (Tylenol) 650 mg Q4H PRN ORAL FEVER (T>100.5F) 11/11/18 20:15 12/07/18 20:14 Albuterol/ Ipratropium (Albuterol/ Ipratropium) 3 ml Q4H PRN HHN Shortness of Breath 11/11/18 20:15 11/12/18 20:14 Ceftriaxone Sodium 1 gm/ Dextrose 55 ml @ 110 mls/hr Q24H IVPB 11/11/18 21:00 11/17/18 20:59 11/11/18 20:30 Chlorhexidine Gluconate (Neisha-Hex 2%) 1 applic DAILY@2000 TOPIC 11/11/18 20:00 12/08/18 19:59 11/11/18 20:24 Dextrose (Dextrose 50%) 25 ml Q30M PRN IV Hypoglycemia 11/11/18 20:15 12/07/18 18:14 Dextrose (Dextrose 50%) 50 ml Q30M PRN IV Hypoglycemia 11/11/18 20:15 12/07/18 18:14 Diltiazem HCl (Cardizem) 90 mg BEFORE MEALS ORAL 11/12/18 06:30 12/11/18 16:29 11/12/18 05:55 Heparin Sodium (Porcine) (Heparin 5000 units/ml) 5,000 units EVERY 12 HOURS SUBQ 11/11/18 21:00 12/07/18 20:59 11/12/18 09:34 Lorazepam (Ativan 2mg/ml 1ml) 2 mg Q2H PRN IV For Anxiety 11/11/18 20:15 11/14/18 18:14 Metoprolol Tartrate (Lopressor) 100 mg Q12HR ORAL 11/11/18 21:00 12/09/18 22:14 11/12/18 09:34 Morphine Sulfate (Morphine Sulfate) 4 mg Q4H PRN IVP Severe Pain (Pain Scale 7-10) 11/11/18 20:15 11/14/18 20:14 Ondansetron HCl (Zofran) 4 mg Q6H PRN IVP Nausea & Vomiting 11/11/18 20:15 12/11/18 20:14 Pantoprazole (Protonix) 40 mg DAILY IV 11/12/18 09:00 12/08/18 08:59 11/12/18 09:34 Polyethylene Glycol (Miralax) 17 gm DAILYPRN PRN ORAL Constipation 11/11/18 20:15 12/11/18 20:14 Potassium Chloride 100 ml @ 50 mls/hr EVERY 2 HOURS IVPB 11/12/18 08:00 11/12/18 15:59 11/12/18 10:09 Sodium Chloride 1,000 ml @ 75 mls/hr [id number] IV 11/11/18 20:15 12/07/18 20:14 11/12/18 09:35 Vancomycin HCl (Vanco rx to dose) 1 ea DAILY PRN MISC . 11/11/18 20:15 12/11/18 20:14 Vancomycin HCl 750 mg/Sodium Chloride 275 ml @ 183.333 mls/hr Q12HR@0100,1300 IVPB 11/12/18 01:00 11/13/18 00:59 11/12/18 00:42 Arvind Corona MD Nov 12, 2018 11:00
[2018-11-12 12:00] VITALS: BP 145/62
[2018-11-12] MEDS ORDERED: NS 275ml ONE ×2 (12:06→12:13)
[2018-11-12] MEDS ORDERED: Tubing IV Secondary IV ONE ×2 (12:06→12:13)
--- NOTE | 2018-11-12 12:47 | Cardiology Progress Note ---
Assessment/Plan Assessment/Plan 1. Respiratory failure, acute on chronic. 2. Pneumonia. 3. Respiratory dependence. 4. Hypertension. 5. History of alcohol withdrawal. 6. History of GI bleed status post endoscopy. 7. Hypernatremia. bp is better cxr noted cv stabel Subjective Cardiovascular: Denies: chest pain Respiratory: Reports: cough, shortness of breath Gastrointestinal/Abdominal: Denies: abdominal pain Genitourinary: Denies: burning Objective Last 24 Hour Vital Signs Date Time Temp Pulse Resp B/P (MAP) Pulse Ox O2 Delivery O2 Flow Rate FiO2 11/12/18 10:31 67 32 55 11/12/18 09:34 87 132/66 11/12/18 08:54 87 31 55 11/12/18 08:00 98.1 86 22 132/66 (88) 96 11/12/18 08:00 Mechanical Ventilator 11/12/18 08:00 91 11/12/18 08:00 55 11/12/18 06:51 82 30 55 11/12/18 05:55 93 148/70 11/12/18 05:07 91 32 55 11/12/18 04:00 98 11/12/18 04:00 50 11/12/18 04:00 98.4 87 30 149/75 (99) 99 11/12/18 04:00 Mechanical Ventilator 11/12/18 03:20 94 34 55 11/12/18 00:43 72 29 55 11/12/18 00:00 Mechanical Ventilator 11/12/18 00:00 100.0 86 34 143/77 (99) 97 11/12/18 00:00 50 11/12/18 00:00 82 11/11/18 23:15 85 30 55 11/11/18 20:57 97 30 55 11/11/18 20:33 93 132/69 11/11/18 20:00 98.9 93 34 132/69 (90) 95 11/11/18 20:00 Mechanical Ventilator 11/11/18 20:00 89 11/11/18 20:00 50 11/11/18 18:49 100 29 55 11/11/18 18:00 87 32 126/64 (84) 94 11/11/18 17:00 93 36 123/66 (85) 93 11/11/18 16:40 90 36 55 10/5/19 16:24 55 11/11/18 16:00 Mechanical Ventilator 11/11/18 16:00 50 11/11/18 16:00 93 11/11/18 16:00 90 36 119/59 (79) 93 11/11/18 15:47 95 133/62 11/11/18 15:00 102 34 147/73 (97) 93 11/11/18 14:49 99 41 50 11/11/18 14:00 98 34 151/71 (97) 93 11/11/18 13:00 103 34 153/78 (103) 93 General Appearance: no apparent distress, alert, on vent, patient on isolation Cardiovascular: normal rate Respiratory/Chest: lungs clear Abdomen: normal bowel sounds, non tender, soft Extremities: no swelling Intake and Output 11/11/18 11/12/18 19:00 07:00 Intake Total 1567.5 ml 1515.000 ml Output Total 2460 ml Balance -892.5 ml 1515.000 ml Intake Free Water 120 ml 180 ml IV Total 1117.5 ml 1005.000 ml Tube Feeding 330 ml 330 ml Output Urine Total 2460 ml Laboratory Tests Test 11/12/18 04:00 White Blood Count 13.2 K/UL (4.8-10.8) H Red Blood Count 2.82 M/UL (4.70-6.10) L Hemoglobin 8.0 G/DL (14.2-18.0) L Hematocrit 25.2 % (42.0-52.0) L Mean Corpuscular Volume 89 FL (80-99) Mean Corpuscular Hemoglobin 28.4 PG (27.0-31.0) Mean Corpuscular Hemoglobin Concent 31.8 G/DL (32.0-36.0) L Red Cell Distribution Width 15.2 % (11.6-14.8) H Platelet Count 289 K/UL (150-450) Mean Platelet Volume 6.0 FL (6.5-10.1) L Neutrophils (%) (Auto) 78.0 % (45.0-75.0) H Lymphocytes (%) (Auto) 12.6 % (20.0-45.0) L Monocytes (%) (Auto) 8.7 % (1.0-10.0) Eosinophils (%) (Auto) 0.0 % (0.0-3.0) Basophils (%) (Auto) 0.8 % (0.0-2.0) Sodium Level 150 MMOL/L (136-145) H Potassium Level 2.2 MMOL/L (3.5-5.1) *L Chloride Level 109 MMOL/L (98-107) H Carbon Dioxide Level 37 MMOL/L (21-32) H Anion Gap 4 mmol/L (5-15) L Blood Urea Nitrogen 10 mg/dL (7-18) Creatinine 0.9 MG/DL (0.55-1.30) Estimat Glomerular Filtration Rate > 60 mL/min (>60) Glucose Level 137 MG/DL (74-106) H Calcium Level 7.3 MG/DL (8.5-10.1) L Total Bilirubin 0.6 MG/DL (0.2-1.0) Aspartate Amino Transf (AST/SGOT) 15 U/L (15-37) Alanine Aminotransferase (ALT/SGPT) 15 U/L (12-78) Alkaline Phosphatase 79 U/L (46-116) Pro-B-Type Natriuretic Peptide 33422 pg/mL (0-125) H Total Protein 5.7 G/DL (6.4-8.2) L Albumin 1.3 G/DL (3.4-5.0) L Globulin 4.4 g/dL Albumin/Globulin Ratio 0.3 (1.0-2.7) L Esteban Roman MD Nov 12, 2018 12:47
[2018-11-12 16:00] VITALS: BP 140/84
--- NOTE | 2018-11-12 16:00 | Surgery Progress Note ---
Surgery Progress Note Subjective Procedure Performed Right subclavian central venous catheter insertion Additional Comments comfortable downgraded no n/v/f/c. labsd noted Objective Last 24 Hour Vital Signs Date Time Temp Pulse Resp B/P (MAP) Pulse Ox O2 Delivery O2 Flow Rate FiO2 11/12/18 15:02 86 33 55 11/12/18 13:37 86 141/66 11/12/18 13:00 87 35 55 11/12/18 12:00 55 11/12/18 12:00 98.0 81 21 145/62 (89) 97 11/12/18 10:31 67 32 55 11/12/18 09:34 87 132/66 11/12/18 08:54 87 31 55 11/12/18 08:00 98.1 86 22 132/66 (88) 96 11/12/18 08:00 Mechanical Ventilator 11/12/18 08:00 91 11/12/18 08:00 55 11/12/18 06:51 82 30 55 11/12/18 05:55 93 148/70 11/12/18 05:07 91 32 55 11/12/18 04:00 98 11/12/18 04:00 50 11/12/18 04:00 98.4 87 30 149/75 (99) 99 11/12/18 04:00 Mechanical Ventilator 11/12/18 03:20 94 34 55 11/12/18 00:43 72 29 55 11/12/18 00:00 Mechanical Ventilator 11/12/18 00:00 100.0 86 34 143/77 (99) 97 11/12/18 00:00 50 11/12/18 00:00 82 11/11/18 23:15 85 30 55 11/11/18 20:57 97 30 55 11/11/18 20:33 93 132/69 11/11/18 20:00 98.9 93 34 132/69 (90) 95 11/11/18 20:00 Mechanical Ventilator 11/11/18 20:00 89 11/11/18 20:00 50 11/11/18 18:49 100 29 55 11/11/18 18:00 87 32 126/64 (84) 94 11/11/18 17:00 93 36 123/66 (85) 93 11/11/18 16:40 90 36 55 11/11/18 16:24 55 I&O Intake and Output 11/11/18 11/12/18 18:59 06:59 Intake Total 1672.5 ml 1515.000 ml Output Total 2460 ml Balance -787.5 ml 1515.000 ml Intake Free Water 120 ml 180 ml IV Total 1192.5 ml 1005.000 ml Tube Feeding 360 ml 330 ml Output Urine Total 2460 ml Dressing: dry Wound: clean Cardiovascular: RSR Respiratory: clear Abdomen: soft, non-tender, present bowel sounds Extremities: no edema Laboratory Tests Test 11/12/18 04:00 11/12/18 12:40 White Blood Count 13.2 K/UL (4.8-10.8) H Red Blood Count 2.82 M/UL (4.70-6.10) L Hemoglobin 8.0 G/DL (14.2-18.0) L Hematocrit 25.2 % (42.0-52.0) L Mean Corpuscular Volume 89 FL (80-99) Mean Corpuscular Hemoglobin 28.4 PG (27.0-31.0) Mean Corpuscular Hemoglobin Concent 31.8 G/DL (32.0-36.0) L Red Cell Distribution Width 15.2 % (11.6-14.8) H Platelet Count 289 K/UL (150-450) Mean Platelet Volume 6.0 FL (6.5-10.1) L Neutrophils (%) (Auto) 78.0 % (45.0-75.0) H Lymphocytes (%) (Auto) 12.6 % (20.0-45.0) L Monocytes (%) (Auto) 8.7 % (1.0-10.0) Eosinophils (%) (Auto) 0.0 % (0.0-3.0) Basophils (%) (Auto) 0.8 % (0.0-2.0) Sodium Level 150 MMOL/L (136-145) H Potassium Level 2.2 MMOL/L (3.5-5.1) *L Chloride Level 109 MMOL/L (98-107) H Carbon Dioxide Level 37 MMOL/L (21-32) H Anion Gap 4 mmol/L (5-15) L Blood Urea Nitrogen 10 mg/dL (7-18) Creatinine 0.9 MG/DL (0.55-1.30) Estimat Glomerular Filtration Rate > 60 mL/min (>60) Glucose Level 137 MG/DL (74-106) H Calcium Level 7.3 MG/DL (8.5-10.1) L Total Bilirubin 0.6 MG/DL (0.2-1.0) Aspartate Amino Transf (AST/SGOT) 15 U/L (15-37) Alanine Aminotransferase (ALT/SGPT) 15 U/L (12-78) Alkaline Phosphatase 79 U/L (46-116) Pro-B-Type Natriuretic Peptide 57419 pg/mL (0-125) H Total Protein 5.7 G/DL (6.4-8.2) L Albumin 1.3 G/DL (3.4-5.0) L Globulin 4.4 g/dL Albumin/Globulin Ratio 0.3 (1.0-2.7) L Vancomycin Level Trough 15.1 ug/mL (5.0-12.0) H Plan Problems: (1) Abdominal distension Assessment & Plan: abd distention possible sbo CT noted as below IV fluids IV Abx resuscitation AM labs CXR worsening KUB noted and stable g tube to suction will follow with recs (2) Sepsis Assessment & Plan: leukocytosis anemia lactic acidosis abnormal labs resp depression abd distention NPO IV fluids IV Abx resuscitation AM labs CXR AM KUB g tube to suction central line will follow with recs thank you Chest: The chest demonstrates extensive dense consolidation of the entire right lung. There is also atelectasis of much of the right lower lobe. There is a small amount of pleural fluid on the right. Extensive although less severe interstitial and airspace opacities are also seen in the left upper and lower lobes, with some areas of consolidated lung, interstitial edema and groundglass parenchymal opacity elsewhere. There is trace pleural fluid on the left. The heart is mildly enlarged. There is a small amount of pericardial effusion laterally. No mediastinal or hilar mass or adenopathy. There is a tracheostomy. The included thyroid is unremarkable. The esophagus is unremarkable. The bones are unremarkable. Abdomen pelvis:There is diffuse distention of the small bowel which is diffusely fluid-filled. Distention extends throughout most of length of the small bowel. The transition point appears to be at the level of the distal ileum in the anterior left lower quadrant. Transition point is somewhat gradual. Circumferential beads of gas in the left upper quadrant small bowel loops raise suspicion for small bowel pneumatosis. However, this is not definitely evident in the portions of small bowel that are likely filled with gas, so could represent so-called pseudopneumatosis related to gas between the bowel wall and small bowel contents. There is no bowel wall thickening demonstrated. The proximal mesenteric vessels are patent, as are the superior mesenteric vein and splenic vein. There is a gastrostomy in place. The cecum is distended. The appendix is normal. There is distention of the rectum with feces and mild wall thickening of the rectum. There is trace free fluid in Morison's pouch. No free intraperitoneal gas. The liver, gallbladder, bile ducts, pancreas, spleen, adrenals are unremarkable. Subcentimeter low-attenuation lesions in the kidneys most likely represent cysts The bones demonstrate mild degenerative spondylosis changes. IMPRESSION: Chest: Extensive consolidation of the right lung, most likely pneumonia. There is also a component of atelectasis. Less extensive but still severe parenchymal opacities on the left, most likely represent pneumonia but could also represent pulmonary edema Small bilateral pleural effusions Cardiomegaly Tracheostomy Abdomen pelvis: Diffuse distention of the small bowel which is diffusely fluid-filled. There is tapering to normal caliber distal ileum. There is also some distention of the cecum. Findings may be on a functional basis, but the possibility of distal small bowel obstruction should also be considered. There is also evidence of small bowel pneumatosis versus pseudopneumatosis. There is no evidence of proximal arterial insufficiency or of mesenteric venous insufficiency Distended rectum with feces, mild wall thickening of the rectum could indicate stercoral proctitis Trace free fluid in Morison's pouch Gastrostomy Incidental finding of degenerative spondylosis Kevin Conn Nov 12, 2018 16:00
--- NOTE | 2018-11-12 19:20 | NUR ---
HAND-OFF: Report given to Rashi Akins RN.
[2018-11-12 20:00] VITALS: BP 143/62
--- NOTE | 2018-11-12 20:21 | NUR ---
NURSE NOTES: Received report from Flakito Montano RN. Pt is stable, alert to name and place, non-verbal, and is able to follow commands. Pt is trach to vent: Portex 8, AC 12, TF 450, Fio2 55, PEEP 5. Pt is sating at 97%, no signs of respiratory distress. Pt is sinus rhythm with current heart rate of 99 bpm. Jevity 1.2 running via Gtube at 30ml/hr, G tube is patent, no residuals, flushed with 30 ml water. Pt has central line in right subclavian, intact, flushed with 10ml NS. Skin surrounding sites is intact, no redness, or signs of irritation. Pt has condom catheter draining yellow urine. Pt denies pain, no signs or symptoms of distress noted at this time. Bed is in lowest position, locked, bed alarm is engaged. Call light placed within reach, instructed pt to use it when assistance is needed, verbalized understanding. Will continue to monitor closely.
[2018-11-12] MEDS: Dyna-Hex 2% Top Sol 2oz TOPIC SCH (20:43)
[2018-11-12] MEDS: cefTRIAXone 1 GM in D5W 55 ML IVPB SCH (20:51)
[2018-11-13] VITALS: BP 143/67
[2018-11-13 04:00] VITALS: BP 155/65
[2018-11-13] MEDS: dilTIAZem HCl 90mg tab ORAL SCH ×3 (07:03→16:27)
--- NOTE | 2018-11-13 07:57 | NUR ---
HAND-OFF: Report given to Report given to Carly Lee RN. Pt is stable, SR, denies pain, no signs or symptoms of distress at this time. Pt sating at 96%, Portex 8, AC 12, TV 450, Fio2 55, Peep 5.
[2018-11-13 08:00] VITALS: BP 142/66
--- NOTE | 2018-11-13 08:00 | NUR ---
NURSE NOTES: received pt in the bed, vent dependent, vital signs stable, no SOB, no co pain, skin warm and dry to touch, intact, TLC on RT subclavian, dressing dry and intact, tolerate GT feeding well, bed in low position, HOB elevated.
[2018-11-13] MEDS: Pantoprazole Inj IV SCH (09:25)
[2018-11-13] MEDS: Heparin 5000 units/ml inj SUBQ SCH ×2 (09:28→21:22)
--- NOTE | 2018-11-13 10:30 | Progress Note ---
DATE: 11/12/2018 SUBJECTIVE: The patient is afebrile. He is tachycardic with tachypnea. PHYSICAL EXAMINATION: VITAL SIGNS: Blood pressure is 143/62, pulse is 93, respirations are 32, and temperature 99.9. HEENT: Eyes were normal. ENT, mucous membranes were moist and intact. NECK: Supple with no JVD without lymph nodes. Tracheostomy site is clean. LUNGS: Clear without rhonchi, rales, or wheezing. Secretions are small, thin, and garnica. HEART: Normal sounds with regular beats. No S3, S4, or pericardial rub. ABDOMEN: Soft and nontender with normal bowel sounds. Gastrostomy site is clean. EXTREMITIES: Warm without cyanosis, clubbing, or edema. LABORATORY AND DIAGNOSTIC DATA: Hemoglobin is 8.7, hematocrit 25.2 with MCV of 89, WBC of 10.2, and platelets are 289,000. His BUN and creatinine are 10 and 0.9 respectively. His sodium is 150, potassium 2.2, chloride 109, and CO2 is 37. His within normal limits. His CRP is more than 70. The pro B-type natriuretic peptide is . His chest x-ray shows diffuse patchy infiltrates in both lungs and alveolar opacity. improved when compared to the prior exam taken on 11/10/2018. PLAN: The patient markedly improved clinically; however, . Repeat laboratory tests will be done in the a.m. Pierre Moreno M.D. DR: JUNAID JOB#: [id number] CC:
--- NOTE | 2018-11-13 10:40 | Surgery Progress Note ---
Surgery Progress Note Subjective Procedure Performed Right subclavian central venous catheter insertion Additional Comments low grade fevers labs pending exam unchanged comfortable abd exam stable Objective Last 24 Hour Vital Signs Date Time Temp Pulse Resp B/P (MAP) Pulse Ox O2 Delivery O2 Flow Rate FiO2 11/13/18 09:25 95 142/66 11/13/18 08:00 100.2 95 22 142/66 (91) 96 11/13/18 08:00 55 11/13/18 07:03 100 155/65 11/13/18 06:54 105 36 55 11/13/18 04:52 95 31 55 11/13/18 04:00 Mechanical Ventilator 11/13/18 04:00 98.5 87 37 155/65 (95) 97 11/13/18 04:00 55 11/13/18 04:00 91 11/13/18 03:25 99 32 55 11/13/18 01:09 85 30 55 11/13/18 00:00 55 11/13/18 00:00 98.1 87 35 143/67 (92) 97 11/13/18 00:00 Mechanical Ventilator 11/12/18 23:31 87 11/12/18 22:55 78 32 55 11/12/18 21:05 83 32 55 11/12/18 20:44 93 143/62 11/12/18 20:00 55 11/12/18 20:00 99.9 93 35 143/62 (89) 96 11/12/18 20:00 Mechanical Ventilator 11/12/18 19:33 85 30 55 11/12/18 19:29 101 11/12/18 18:06 94 144/70 11/12/18 16:40 82 33 55 11/12/18 16:00 98.2 84 21 140/84 (102) 96 11/12/18 16:00 Mechanical Ventilator 11/12/18 16:00 55 11/12/18 15:27 86 11/12/18 15:02 86 33 55 11/12/18 13:37 86 141/66 11/12/18 13:00 87 35 55 11/12/18 12:00 55 11/12/18 12:00 Mechanical Ventilator 11/12/18 12:00 98.0 81 21 145/62 (89) 97 11/12/18 11:30 77 I&O Intake and Output 11/12/18 11/13/18 19:00 07:00 Intake Total 2113.750 ml 1140 ml Output Total 2200 ml 1000 ml Balance -86.250 ml 140 ml Intake Free Water 30 ml IV Total 1573.750 ml 750 ml Tube Feeding 360 ml 360 ml Other 180 ml Output Urine Total 2200 ml 1000 ml Cardiovascular: RSR Respiratory: clear Abdomen: soft, flat, non-tender, present bowel sounds, non-distended Extremities: no edema, no tenderness, no cyanosis Laboratory Tests Test 11/12/18 12:40 Vancomycin Level Trough 15.1 ug/mL (5.0-12.0) H Plan Problems: (1) Abdominal distension Assessment & Plan: abd distention possible sbo CT noted as below IV fluids IV Abx resuscitation AM labs CXR worsening KUB noted and stable g tube to suction will follow with recs (2) Sepsis Assessment & Plan: leukocytosis anemia lactic acidosis abnormal labs resp depression abd distention IV fluids IV Abx resuscitation AM labs okay for feeds central line will follow with recs thank you Chest: The chest demonstrates extensive dense consolidation of the entire right lung. There is also atelectasis of much of the right lower lobe. There is a small amount of pleural fluid on the right. Extensive although less severe interstitial and airspace opacities are also seen in the left upper and lower lobes, with some areas of consolidated lung, interstitial edema and groundglass parenchymal opacity elsewhere. There is trace pleural fluid on the left. The heart is mildly enlarged. There is a small amount of pericardial effusion laterally. No mediastinal or hilar mass or adenopathy. There is a tracheostomy. The included thyroid is unremarkable. The esophagus is unremarkable. The bones are unremarkable. Abdomen pelvis:There is diffuse distention of the small bowel which is diffusely fluid-filled. Distention extends throughout most of length of the small bowel. The transition point appears to be at the level of the distal ileum in the anterior left lower quadrant. Transition point is somewhat gradual. Circumferential beads of gas in the left upper quadrant small bowel loops raise suspicion for small bowel pneumatosis. However, this is not definitely evident in the portions of small bowel that are likely filled with gas, so could represent so-called pseudopneumatosis related to gas between the bowel wall and small bowel contents. There is no bowel wall thickening demonstrated. The proximal mesenteric vessels are patent, as are the superior mesenteric vein and splenic vein. There is a gastrostomy in place. The cecum is distended. The appendix is normal. There is distention of the rectum with feces and mild wall thickening of the rectum. There is trace free fluid in Morison's pouch. No free intraperitoneal gas. The liver, gallbladder, bile ducts, pancreas, spleen, adrenals are unremarkable. Subcentimeter low-attenuation lesions in the kidneys most likely represent cysts The bones demonstrate mild degenerative spondylosis changes. IMPRESSION: Chest: Extensive consolidation of the right lung, most likely pneumonia. There is also a component of atelectasis. Less extensive but still severe parenchymal opacities on the left, most likely represent pneumonia but could also represent pulmonary edema Small bilateral pleural effusions Cardiomegaly Tracheostomy Abdomen pelvis: Diffuse distention of the small bowel which is diffusely fluid-filled. There is tapering to normal caliber distal ileum. There is also some distention of the cecum. Findings may be on a functional basis, but the possibility of distal small bowel obstruction should also be considered. There is also evidence of small bowel pneumatosis versus pseudopneumatosis. There is no evidence of proximal arterial insufficiency or of mesenteric venous insufficiency Distended rectum with feces, mild wall thickening of the rectum could indicate stercoral proctitis Trace free fluid in Morison's pouch Gastrostomy Incidental finding of degenerative spondylosis Kevin Conn Nov 13, 2018 10:40
--- NOTE | 2018-11-13 11:10 | NUR ---
RD ASSESSMENT & RECOMMENDATIONS SEE CARE ACTIVITY FOR COMPLETE ASSESSMENT DAILY ESTIMATED NEEDS: Needs based on Critical Care, Sepsis/ 64kg 22-28 kcals/kg 2042-4757 total kcals 1.2-2 g protein/kg 77-128 g total protein 25-30 mL/kg 3061-2923 total fluid mLs NUTRITION DIAGNOSIS: * Swallowing difficulty R/T respiratory status as evidenced by pt is trach/vent, PEG dep. * Altered nutrition related lab values R/T sepsis, clinical condition as evidenced by elev wbc (13.2), febrile, elev LA (4.2 -> now wnl), elev RR + HR -> now ipmroved, hypotensive upon adm, now hypertensive, elev BNP (03327 -> 37787), elev Na (150). CURRENT TF:Jevity 1.2 @ 30ml/hr x 24 hrs ENTERAL NUTRITION RECOMMENDATIONS: Osmolite 1.5 @ 45ml/hr x 24 hrs to provide 1080ml, 1620kcal, 68g prot, 886ml free water * Rec TF change to Osmolite 1.5 for less free water (BNP >70244) -> Rec initiate Osmolite 1.5 @ 25ml/hr x 6hrs -> Advance 10ml q 4-6 hrs as tolerated to goal rate * HOB over 30 degrees/ water flush per MD ADDITIONAL RECOMMENDATIONS: * Calibrated bedscale wt for accurate CBW * Monitor TF tolerance: Admitted w/ abdominal distention * Monitor lytes, replete as needed (critically low K, low mag+phos) * Consider adjusting IVF -> Na trending up, pt on NS .
[2018-11-13 12:00] VITALS: BP 146/61
--- NOTE | 2018-11-13 12:06 | Pulmonolgy Critical Care Note ---
Critical Care - Asmt/Plan Problems: (1) Nosocomial pneumonia (2) Sepsis (3) Ventilator dependent (4) Schizophrenia (5) Feeding by G-tube (6) Chronic respiratory failure Respiratory: monitor respiratory rate, adjust FIO2, CXR Cardiac: continue pressors, continue to monitor HR/BP Renal: F/U I&O, keep IV fluid Infectious Disease: continue antibiotics Gastrointestinal: continue feedings/current rate, hold feedings Endocrine: check TSH Hematologic: monitor H/H, transfuse if hgb<8.5 Neurologic: PRN Morphine, keep patient comfortable Prophylaxis: Heparin Notes Reviewed: cardio Discussed with: nurses, consultants, upper casermanager activities - Objective Last 24 Hour Vital Signs Date Time Temp Pulse Resp B/P (MAP) Pulse Ox O2 Delivery O2 Flow Rate FiO2 11/13/18 09:25 95 142/66 11/13/18 09:12 114 38 55 11/13/18 08:00 96 11/13/18 08:00 100.2 95 22 142/66 (91) 96 11/13/18 08:00 Mechanical Ventilator 11/13/18 08:00 55 11/13/18 07:03 100 155/65 11/13/18 06:54 105 36 55 11/13/18 04:52 95 31 55 11/13/18 04:00 Mechanical Ventilator 11/13/18 04:00 98.5 87 37 155/65 (95) 97 11/13/18 04:00 55 11/13/18 04:00 91 11/13/18 03:25 99 32 55 11/13/18 01:09 85 30 55 11/13/18 00:00 55 11/13/18 00:00 98.1 87 35 143/67 (92) 97 11/13/18 00:00 Mechanical Ventilator 11/12/18 23:31 87 11/12/18 22:55 78 32 55 11/12/18 21:05 83 32 55 11/12/18 20:44 93 143/62 11/12/18 20:00 55 11/12/18 20:00 99.9 93 35 143/62 (89) 96 11/12/18 20:00 Mechanical Ventilator 11/12/18 19:33 85 30 55 11/12/18 19:29 101 11/12/18 18:06 94 144/70 11/12/18 16:40 82 33 55 11/12/18 16:00 98.2 84 21 140/84 (102) 96 11/12/18 16:00 Mechanical Ventilator 11/12/18 16:00 55 11/12/18 15:27 86 11/12/18 15:02 86 33 55 11/12/18 13:37 86 141/66 11/12/18 13:00 87 35 55 Status: awake Condition: critical Neck: full ROM Lungs: chest wall tender Heart: regular Abdomen: non-tender, feeding tube Extremities: no C/C/E Critical Care - Subjective ROS Limited/Unobtainable: Yes Condition: critical EKG Rhythm: Sinus Rhythm FI02: 55 Vent Support Breath Rate: 12 Vent Support Mode: AC Vent Tidal Volume: 450 Sputum Amount: Large PEEP: 5.0 PIP: 38 Tube Feeding Amount: 30 I&O: Intake and Output 11/12/18 11/13/18 19:00 07:00 Intake Total 2113.750 ml 1140 ml Output Total 2200 ml 1000 ml Balance -86.250 ml 140 ml Intake Free Water 30 ml IV Total 1573.750 ml 750 ml Tube Feeding 360 ml 360 ml Other 180 ml Output Urine Total 2200 ml 1000 ml Labs: Laboratory Tests Test 11/12/18 12:40 Vancomycin Level Trough 15.1 ug/mL (5.0-12.0) Bria Bianchi MD Nov 13, 2018 12:06
--- NOTE | 2018-11-13 13:24 | Infectious Diseases Prog Note ---
Assessment/Plan Assessment/Plan The patient is a 68-year-old male with, Sepsis/septic shock, Sp Fever, improving Leukocytosis improving Aspiration pneumonia SCx: MRSA, EColi Probable small bowel obstruction. CT shows ? small bowel obstructions/small bowel pneumatosis/bilateral lower lung infiltrate, right more than left. History of emesis and bacteremia in September 2018. CT of the chest showed extensive consolidation of right lung, cardiomegaly, possible small bowel obstruction, possible small bowel pneumatosis History of ventilator-dependent respiratory failure. Status post PEG. Status post trach. History of alcohol abuse. History of schizophrenia. PLAN: continue the patient on IV vancomycin # 6/14 , and IV rocephin # 4/7 DC cefepime, amikacin # 3 Monitor cultures (blood, urine,). Monitor chest x-ray. Monitor CBC and CMP. Subjective Allergies: Coded Allergies: No Known Allergies (Unverified , 11/07/18) Subjective Tm 100.2 wbc improved Objective Vital Signs Last 24 Hour Vital Signs Date Time Temp Pulse Resp B/P (MAP) Pulse Ox O2 Delivery O2 Flow Rate FiO2 11/13/18 12:47 94 147/61 11/13/18 09:25 95 142/66 11/13/18 09:12 114 38 55 11/13/18 08:00 96 11/13/18 08:00 100.2 95 22 142/66 (91) 96 11/13/18 08:00 Mechanical Ventilator 11/13/18 08:00 55 11/13/18 07:03 100 155/65 11/13/18 06:54 105 36 55 11/13/18 04:52 95 31 55 11/13/18 04:00 Mechanical Ventilator 11/13/18 04:00 98.5 87 37 155/65 (95) 97 11/13/18 04:00 55 11/13/18 04:00 91 11/13/18 03:25 99 32 55 11/13/18 01:09 85 30 55 11/13/18 00:00 55 11/13/18 00:00 98.1 87 35 143/67 (92) 97 11/13/18 00:00 Mechanical Ventilator 11/12/18 23:31 87 11/12/18 22:55 78 32 55 11/12/18 21:05 83 32 55 11/12/18 20:44 93 143/62 11/12/18 20:00 55 11/12/18 20:00 99.9 93 35 143/62 (89) 96 11/12/18 20:00 Mechanical Ventilator 11/12/18 19:33 85 30 55 11/12/18 19:29 101 11/12/18 18:06 94 144/70 11/12/18 16:40 82 33 55 11/12/18 16:00 98.2 84 21 140/84 (102) 96 11/12/18 16:00 Mechanical Ventilator 11/12/18 16:00 55 11/12/18 15:27 86 11/12/18 15:02 86 33 55 11/12/18 13:37 86 141/66 Height (Feet): 5 Height (Inches): 8.00 Weight (Pounds): 144 Current Medications Medications (Trade) Dose Ordered Sig/Ingrid Route PRN Reason Start Time Stop Time Status Last Admin Dose Admin Acetaminophen (Tylenol) 650 mg Q4H PRN ORAL FEVER (T>100.5F) 11/11/18 20:15 12/07/18 20:14 11/13/18 12:51 Ceftriaxone Sodium 1 gm/ Dextrose 55 ml @ 110 mls/hr Q24H IVPB 11/11/18 21:00 11/17/18 20:59 11/12/18 20:51 Chlorhexidine Gluconate (Neisha-Hex 2%) 1 applic DAILY@2000 TOPIC 11/11/18 20:00 12/08/18 19:59 11/12/18 20:43 Dextrose (Dextrose 50%) 25 ml Q30M PRN IV Hypoglycemia 11/11/18 20:15 12/07/18 18:14 Dextrose (Dextrose 50%) 50 ml Q30M PRN IV Hypoglycemia 11/11/18 20:15 12/07/18 18:14 Diltiazem HCl (Cardizem) 90 mg BEFORE MEALS ORAL 11/12/18 06:30 12/11/18 16:29 11/13/18 12:47 Heparin Sodium (Porcine) (Heparin 5000 units/ml) 5,000 units EVERY 12 HOURS SUBQ 11/11/18 21:00 12/07/18 20:59 11/13/18 09:28 Lorazepam (Ativan 2mg/ml 1ml) 2 mg Q2H PRN IV For Anxiety 11/11/18 20:15 11/14/18 18:14 Metoprolol Tartrate (Lopressor) 100 mg Q12HR ORAL 11/11/18 21:00 12/09/18 22:14 11/13/18 09:25 Morphine Sulfate (Morphine Sulfate) 4 mg Q4H PRN IVP Severe Pain (Pain Scale 7-10) 11/11/18 20:15 11/14/18 20:14 Ondansetron HCl (Zofran) 4 mg Q6H PRN IVP Nausea & Vomiting 11/11/18 20:15 12/11/18 20:14 Pantoprazole (Protonix) 40 mg DAILY IV 11/12/18 09:00 12/08/18 08:59 11/13/18 09:25 Polyethylene Glycol (Miralax) 17 gm DAILYPRN PRN ORAL Constipation 11/11/18 20:15 12/11/18 20:14 Sodium Chloride 1,000 ml @ 75 mls/hr [id number] IV 11/11/18 20:15 12/07/18 20:14 11/13/18 12:52 Vancomycin HCl (Vanco rx to dose) 1 ea DAILY PRN MISC . 11/11/18 20:15 12/11/18 20:14 Libertad Dimas M.D. Nov 13, 2018 13:24
--- NOTE | 2018-11-13 14:43 | NUR ---
*-* INSURANCE *-* ALL CLINICALS AND REVIEWS HAVE BEEN FAXED TO: [employer] REF# [id number] NURY:FINN P: [phone] F: [phone] & [facility] TRK# [id number] F: [phone]
[2018-11-13 16:00] VITALS: BP 141/59
--- NOTE | 2018-11-13 16:00 | NUR ---
NURSE NOTES: no distress noted, TLC removed as ordered, bed bath given, repositioned, Tylenol given for fever, continue monitoring.
[2018-11-13] MEDS: Vancomycin 750 MG in NS 275 ML IVPB SCH (16:27)
--- NOTE | 2018-11-13 19:00 | NUR ---
RESPIRATORY NOTE:Pt received on current charted vent settings. No SOB or discomfort noted, Ptx 8 tracheostomy tube secured with trach tie. b/s bilateral rhonchi with small, thick white secretions. Vent plugged into red outlet. Alarms set and audible. Will continue to monitor.
--- NOTE | 2018-11-13 19:05 | NUR ---
CASE MANAGEMENT: REVIEW SI: SEPSIS . PNA , VENT DEPENDENT T 100.8 HR 82 RR 20 BP 141/59 SAT 98% MECH VENT FIO2 65 IS: CARDIZEM PO QD PROTONIX IV QD VANCO IV Q12HR CEFTRIAXONE IV Q24HR METOPROLOL PO Q12HR STEP DOWN UNIT STATUS DCP: PATIENT IS FROM [facility]
--- NOTE | 2018-11-13 19:11 | NUR ---
HAND-OFF: Report given to DEMETRIUS FOX.
--- NOTE | 2018-11-13 19:42 | NUR ---
NURSE NOTES: Received report from Carly Lee RN. Pt is awake, stable, SR, oriented x 2, and non-verbal. Trach to vent settings checked: Portex 8, AC 12, TV 450, FiO2 55, Peep 5. Currently sating at 95%. Pt was suctioned, removing moderate amount of thick menendez secretion. Sat raised to 97%. Jevity 1.2 running at 30ml/hr, removed scant amount of menendez secretions, flushed with 30ml water, tolerated well. Left forearm 20g intact, patent, flushed with 10ml of NS. No signs of infiltration. Pt denies any pain, no signs or symptoms of distress noted. Will continue to monitor closely.
[2018-11-13 20:00] VITALS: BP 133/61
--- NOTE | 2018-11-13 20:09 | Cardiology Progress Note ---
Assessment/Plan Assessment/Plan 1. Respiratory failure, acute on chronic. 2. Pneumonia. 3. Respiratory dependence. 4. Hypertension. 5. History of alcohol withdrawal. 6. History of GI bleed status post endoscopy. 7. Hypernatremia. bp is better cxr noted Subjective Cardiovascular: Denies: chest pain, lightheadedness Respiratory: Reports: cough; Denies: shortness of breath Gastrointestinal/Abdominal: Denies: abdominal pain Genitourinary: Denies: burning Objective Last 24 Hour Vital Signs Date Time Temp Pulse Resp B/P (MAP) Pulse Ox O2 Delivery O2 Flow Rate FiO2 11/13/18 18:00 98.9 11/13/18 17:28 82 32 65 11/13/18 16:27 82 141/59 11/13/18 16:00 100.8 82 20 141/59 (86) 98 11/13/18 16:00 80 11/13/18 16:00 55 11/13/18 16:00 Mechanical Ventilator 11/13/18 15:10 73 27 65 11/13/18 13:21 100.2 11/13/18 13:02 78 31 65 11/13/18 12:47 94 147/61 11/13/18 12:00 Mechanical Ventilator 11/13/18 12:00 55 11/13/18 12:00 98 11/13/18 12:00 102.0 94 22 146/61 (89) 99 11/13/18 11:00 93 29 45 11/13/18 09:25 95 142/66 11/13/18 09:12 114 38 55 11/13/18 08:00 96 11/13/18 08:00 100.2 95 22 142/66 (91) 96 11/13/18 08:00 Mechanical Ventilator 11/13/18 08:00 55 11/13/18 07:03 100 155/65 11/13/18 06:54 105 36 55 11/13/18 04:52 95 31 55 11/13/18 04:00 Mechanical Ventilator 11/13/18 04:00 98.5 87 37 155/65 (95) 97 11/13/18 04:00 55 11/13/18 04:00 91 11/13/18 03:25 99 32 55 11/13/18 01:09 85 30 55 11/13/18 00:00 55 11/13/18 00:00 98.1 87 35 143/67 (92) 97 11/13/18 00:00 Mechanical Ventilator 11/12/18 23:31 87 11/12/18 22:55 78 32 55 11/12/18 21:05 83 32 55 11/12/18 20:44 93 143/62 General Appearance: no apparent distress, alert, on vent, patient on isolation Cardiovascular: regular rhythm Respiratory/Chest: rhonchi - bilaterally Abdomen: normal bowel sounds, non tender, soft Extremities: no swelling Intake and Output 11/12/18 11/13/18 18:59 06:59 Intake Total 2053.750 ml 1200 ml Output Total 1400 ml 800 ml Balance 653.750 ml 400 ml Intake Free Water 30 ml IV Total 1573.750 ml 750 ml Tube Feeding 360 ml 360 ml Other 120 ml 60 ml Output Urine Total 1400 ml 800 ml Esteban Roman MD Nov 13, 2018 20:09
[2018-11-13] MEDS: cefTRIAXone 1 GM in D5W 55 ML IVPB SCH (21:19)
[2018-11-13] MEDS ORDERED: Tubing IV Secondary IV ONE (22:50)
[2018-11-13] MEDS ORDERED: NS 275ml ONE (22:53)
--- NOTE | 2018-11-13 23:45 | NUR ---
NURSE NOTES: Pt in bed, awake, SR, stable. Trach to vent settings: Portex 8, AC 12, TV 450, FiO2 55, PEEP 5. Tolerating respiratory therapy well, sating at 96%. Jevity 1.2 running via g tube @30ml/hr, no residuals, flushed with 30 ml water. R hand 24g intact, patent, no signs or symptoms of infiltration noted. A & O x 2, non-verbal, denies any pain at this time. No signs or symptoms of distress noted. Will continue to monitor closely.
[2018-11-14] VITALS (23 sets, daily range): BP systolic 80–132; BP diastolic 18–60
[2018-11-14] MEDS: Vancomycin 750 MG in NS 275 ML IVPB SCH ×2 (00:34→13:17)
[2018-11-14 04:26] LABS: HEMATOCRIT 24.6 % (42.0-52.0); HEMOGLOBIN 7.9 G/DL (14.2-18.0); MEAN CORPUSCULAR VOLUME 89 FL (80-99); PLATELET COUNT 301 K/UL (150-450); RED BLOOD COUNT 2.77 M/UL (4.70-6.10); RED CELL DISTRIBUTION WIDTH 15.3 % (11.6-14.8); WHITE BLOOD COUNT 16.2 K/UL (4.8-10.8)
[2018-11-14 05:09] LABS: ALANINE AMINOTRANSFERASE 15 U/L (12-78); ALBUMIN 1.3 G/DL (3.4-5.0); ALBUMIN/GLOBULIN RATIO 0.3 (1.0-2.7); ALKALINE PHOSPHATASE 84 U/L (46-116); ANION GAP 6 mmol/L (5-15); ASPARTATE AMINO TRANSFERASE 20 U/L (15-37); BILIRUBIN,TOTAL 0.8 MG/DL (0.2-1.0); BLOOD UREA NITROGEN 17 mg/dL (7-18); CARBON DIOXIDE 39 MMOL/L (21-32); CHLORIDE 106 MMOL/L (98-107); CREATININE 1.1 MG/DL (0.55-1.30); SODIUM 152 MMOL/L (136-145)
[2018-11-14 05:14] LABS: POTASSIUM 1.7 MMOL/L (3.5-5.1)
[2018-11-14] MEDS ORDERED: Lidocaine 1% Plain 30 ml INJ ONE (06:00)
[2018-11-14] MEDS ORDERED: Heparin1,000 units/500ml Premix(Conc:2 units/ml) ONE (06:00)
[2018-11-14] MEDS: dilTIAZem HCl 90mg tab ORAL SCH ×3 (06:27→15:45)
--- NOTE | 2018-11-14 07:01 | NUR ---
NURSE NOTES: Pt had oral temperature of 102.9F, given tylenol and cooling measures as ordered. Temperature lowered to 101.9F. Informed Yovani, called and left sandeee with Vanessa as requested. Wanting return of call, endorsed to AM shift.
--- NOTE | 2018-11-14 07:05 | NUR ---
NURSE NOTES: Pt. running fever per previous shift. Applied cooling measures. Previous shift gave Potassium 20meq. (2 tabs=40meq. total) thru GT. Reposition pt.
--- NOTE | 2018-11-14 07:20 | NUR ---
NURSE NOTES: RMikaelT notified RN regarding pt. noted with a lot of secretion. Also R.T notified RN she raised FiO2 to 80% from 65% due to O2 sat 87% and after few minutes pt. O2 saturation went to 94%. Will cont. to monitor.
--- NOTE | 2018-11-14 07:35 | NUR ---
HAND-OFF: Report given to RUDDY Weinberg. Pt is stable, SR, no signs or symptoms of distress noted at this time; pt denies pain. .
--- NOTE | 2018-11-14 07:38 | NUR ---
NURSE NOTES: Received bedside report from Trena/Ayaka RN. Pt. in bed, sleeping but easily arousable. No sign of distress. Mech. vent. dependance with setting of AC12/VT450/FiO2 at 60%/P5. No grimacing noted. HOB elevated at all times. On Jevity 1.2 @ 30cc/hr. Tolerating well. IV at left wrist #22g. in placed patent/intact running NS at 75cc/hr. F/C in placed patent/intact draining yellow colored urine. Bed in low position, locked, bed alarm on. Call light within reach. Will cont. to monitor.
--- NOTE | 2018-11-14 08:05 | NUR ---
NURSE NOTES: Cont. to apply ice packs and R.T suction pt. Will cont. to monitor.
--- NOTE | 2018-11-14 08:42 | NUR ---
NURSE NOTES: CN informed RN pt. code blue on room 242-2.
--- NOTE | 2018-11-14 08:45 | NUR ---
NURSE NOTES: Pt. transferred to ICU 246-K. Accu check done and result 119. Gave report to Suzanne FOX.
--- NOTE | 2018-11-14 09:00 | NUR ---
NURSE NOTES: Received bedside report from RUDDY Weinberg. Pt. unarousable to verbal or physical stimulation. B/P: 85/43, HR: 95, RR: 25. Trach to vent. Portex 8 with setting of AC12/VT450/FiO2 at 100%/P5. IV at left wrist #22g. patent/intact running NS at 75cc/hr. Home Health Clinical Liaison added 2 additional IV's- Rt. Wrist #20g and Lt hand #20g, patent/ intact. Condom cath patent/intact draining yellow colored urine. Bed in low position, locked, bed alarm on. Call light within reach. Will resume plan of care.
--- NOTE | 2018-11-14 09:09 | Emergency Room Report ---
History of Present Illness General Chief Complaint: Altered Level of Consciousness Source: Medical Record, PMD Present Illness HPI History limited secondary to patient's condition, patient is being actively coded, I was called to bedside emergently due to a CODE BLUE called at 8:42 AM, from previous chart review patient was admitted for sepsis altered mental status Allergies: Coded Allergies: No Known Allergies (Unverified , 11/07/18) Patient History Limited by: medical condition - UNRESPONSIVE Past Medical History: see triage record Nursing Documentation-[place] Past Medical History Deferred: Pt Cognitively Impaired Past Medical History: No History, Except For Hx Neurological Problems: Yes - AMS Review of Systems All Other Systems: limited - UNRESPONSIVE Physical Exam Vital Signs Date Time Temp Pulse Resp B/P (MAP) Pulse Ox O2 Delivery O2 Flow Rate FiO2 11/10/18 07:00 114 27 168/98 (121) 96 11/10/18 07:15 45 11/10/18 08:00 Mechanical Ventilator 11/10/18 08:00 99.2 Sp02 EP Interpretation: reviewed, abnormal General Appearance: severe distress, lethargic ENT: dry mucus membranes Neck: supple, tracheotomy Respiratory: rhonchi, other - Rhonchi heard on bagging Cardiovascular #1: other - No pulse Gastrointestinal: soft, non-distended Neuologic: Unresponsive Procedures Critical Care Time Critical Care Time Given the critical condition in which the patient arrived, the patient was immediately assessed by myself and the nurse, and cardiac monitoring initiated due to the potential for rapid decompensation of the patient's clinical condition. During the course of the patient's stay, I spent a considerable amount of time at the bedside performing serial re-evaluations of the patient's hemodynamic and clinical status because of the recognized potential threat to life or limb in this condition. I then had a chance to review not only all of the available current laboratory and radiographic studies obtained today, but I also reviewed old records available to me at the time. Additionally, any ancillary information available including back shoe cutter records were reviewed. Sequential vital signs were obtained. Critical Care time of 30 minutes was performed exclusive of billable procedures. CPR/Code Blue CPR/Code Blue Narrative CPR was conducted for 3 minutes Medical Decision Making Diagnostic Impression: Primary Impression: Sepsis Qualified Codes: A41.9 - Sepsis, unspecified organism Additional Impressions: AMS (altered mental status) Qualified Codes: R41.82 - Altered mental status, unspecified Acidosis Anemia Respiratory failure Qualified Codes: J96.90 - Respiratory failure, unspecified, unspecified whether with hypoxia or hypercapnia Pneumonia ER Course 68-year-old male presents with sepsis, patient was being actively coded since 8: 42 AM, ROSC was achieved at 8:45 AM, patient was reevaluated multiple times afterwards to ensure stability, vent was titrated, spoke with primary doctor Pierre Moreno MD, patient will be upgraded to ICU. Pressures remained stable repeat blood pressure was systolic 120s no acute indication for central line we will start a second IV on the right antecubital. We will admit patient to ICU Laboratory Tests Test 11/12/18 12:40 11/14/18 02:40 Vancomycin Level Trough 15.1 ug/mL (5.0-12.0) H White Blood Count 16.2 K/UL (4.8-10.8) H Red Blood Count 2.77 M/UL (4.70-6.10) L Hemoglobin 7.9 G/DL (14.2-18.0) L Hematocrit 24.6 % (42.0-52.0) L Mean Corpuscular Volume 89 FL (80-99) Mean Corpuscular Hemoglobin 28.7 PG (27.0-31.0) Mean Corpuscular Hemoglobin Concent 32.3 G/DL (32.0-36.0) Red Cell Distribution Width 15.3 % (11.6-14.8) H Platelet Count 301 K/UL (150-450) Mean Platelet Volume 6.7 FL (6.5-10.1) Neutrophils (%) (Auto) % (45.0-75.0) Lymphocytes (%) (Auto) % (20.0-45.0) Monocytes (%) (Auto) % (1.0-10.0) Eosinophils (%) (Auto) % (0.0-3.0) Basophils (%) (Auto) % (0.0-2.0) Differential Total Cells Counted 100 Neutrophils % (Manual) 96 % (45-75) H Lymphocytes % (Manual) 2 % (20-45) L Monocytes % (Manual) 2 % (1-10) Eosinophils % (Manual) 0 % (0-3) Basophils % (Manual) 0 % (0-2) Band Neutrophils 0 % (0-8) Platelet Estimate Adequate Platelet Morphology Normal Sodium Level 152 MMOL/L (136-145) H Potassium Level 1.7 MMOL/L (3.5-5.1) *L Chloride Level 106 MMOL/L (98-107) Carbon Dioxide Level 39 MMOL/L (21-32) H Anion Gap 6 mmol/L (5-15) Blood Urea Nitrogen 17 mg/dL (7-18) Creatinine 1.1 MG/DL (0.55-1.30) Estimate Glomerular Filtration Rate > 60 mL/min (>60) Glucose Level 108 MG/DL (74-106) H Calcium Level 7.0 MG/DL (8.5-10.1) L Total Bilirubin 0.8 MG/DL (0.2-1.0) Aspartate Amino Transferase (AST) 20 U/L (15-37) Alanine Aminotransferase (ALT) 15 U/L (12-78) Alkaline Phosphatase 84 U/L (46-116) Total Protein 5.9 G/DL (6.4-8.2) L Albumin 1.3 G/DL (3.4-5.0) L Globulin 4.6 g/dL Albumin/Globulin Ratio 0.3 (1.0-2.7) L Last Vital Signs Date Time Temp Pulse Resp B/P (MAP) Pulse Ox O2 Delivery O2 Flow Rate FiO2 11/14/18 06:27 82 132/60 11/14/18 05:00 25 65 11/14/18 04:00 Mechanical Ventilator 11/14/18 04:00 100.6 95 Disposition: ADMITTED INPATIENT Condition: Critical Referrals: Pierre Moreno MD (PCP) Suman Lopez MD Nov 14, 2018 09:09
--- NOTE | 2018-11-14 09:15 | Progress Note ---
DATE: 11/13/2018 SUBJECTIVE: The patient is alert, afebrile, hemodynamically stable, and comfortable. PHYSICAL EXAMINATION: VITAL SIGNS: Blood pressure is 121/59, pulse is 84, respirations are 27, and temperature 98.6. HEENT: Eyes were normal. ENT, mucous membranes were moist and intact. NECK: Supple with no JVD without lymph nodes. Tracheostomy site is clean. LUNGS: Clear without rhonchi, rales, or wheezing. Secretions are small, thin, and garnica. HEART: Normal sounds with regular beats. No S3, S4, or pericardial rub. ABDOMEN: Soft and nontender with normal bowel sounds. Gastrostomy site is clean. EXTREMITIES: Warm without cyanosis, clubbing, or edema. LABORATORY DATA: No new laboratory data available at the time of this dictation. However, the patient WBC declined. BUN and creatinine are 10 and 0.9 respectively. Sodium is 150, potassium 2.2, chloride 109, and CO2 is 32. IMPRESSION: The patient is in stable condition. . Pierre Moreno M.D. DR: LYSSA JOB#: [id number] CC:
--- NOTE | 2018-11-14 09:15 | NUR ---
NURSE NOTES: Called and spoke with Chris Wesley (nephew) of the pt. and informed him about the transfer. Lupillo appreciated the update.
--- NOTE | 2018-11-14 10:00 | NUR ---
NURSE NOTES: F/S: 119. Bolus NS 1000mL administered for hypotension. B/P: 80/22, HR:79. Pt remains unarousable.
[2018-11-14] MEDS ORDERED: Lidocaine 1% Plain 30 ml INJ PRN ×2 (10:15→13:00)
[2018-11-14] MEDS ORDERED: Heparin1,000 units/500ml Premix(Conc:2 units/ml) IV PRN ×2 (10:15→13:00)
--- NOTE | 2018-11-14 10:40 | Infectious Diseases Prog Note ---
Assessment/Plan Assessment/Plan The patient is a 68-year-old male with, s/p Code blue 11/14 Sepsis/septic shock, Sp Fever, ongoing Leukocytosis increased Aspiration pneumonia- worsening secretions and desaturation 11/14- r/o HAP SCx: MRSA, EColi (R amp, bactrim; otherwise S) Probable small bowel obstruction. CT shows ? small bowel obstructions/small bowel pneumatosis/bilateral lower lung infiltrate, right more than left. History of emesis and bacteremia in September 2018. CT of the chest showed extensive consolidation of right lung, cardiomegaly, possible small bowel obstruction, possible small bowel pneumatosis History of ventilator-dependent respiratory failure. Status post PEG. Status post trach. History of alcohol abuse. History of schizophrenia. PLAN: continue the patient on IV vancomycin # 08/20 Switch IV rocephin # 5 to Zosyn given decompensation 11/10 SP cefepime, amikacin # 3 Monitor cultures (blood, urine,). Monitor chest x-ray. Monitor CBC and CMP. CXR, u/a w/ reflex, Bcx x2, sp cx ICU care Subjective Allergies: Coded Allergies: No Known Allergies (Unverified , 11/07/18) Subjective Tm 102 patient had desaturation and increase secretions coded this am with ROSC and was transferred to ICU Objective Vital Signs Last 24 Hour Vital Signs Date Time Temp Pulse Resp B/P (MAP) Pulse Ox O2 Delivery O2 Flow Rate FiO2 11/14/18 09:00 80 44/34 11/14/18 06:27 82 132/60 11/14/18 05:00 82 25 65 11/14/18 04:00 Mechanical Ventilator 11/14/18 04:00 65 11/14/18 04:00 100.6 88 20 132/60 (84) 95 11/14/18 03:28 94 11/14/18 03:00 77 29 65 11/14/18 00:35 74 27 65 11/14/18 00:00 65 11/14/18 00:00 99.8 78 24 131/55 (80) 95 11/13/18 23:56 Mechanical Ventilator 11/13/18 23:31 71 11/13/18 23:00 71 25 65 11/13/18 21:18 84 141/59 11/13/18 21:10 84 27 65 11/13/18 20:00 98.6 81 24 133/61 (85) 99 11/13/18 20:00 81 11/13/18 20:00 65 11/13/18 20:00 Mechanical Ventilator 11/13/18 19:00 81 29 65 11/13/18 18:00 98.9 11/13/18 17:28 82 32 65 11/13/18 16:27 82 141/59 11/13/18 16:00 100.8 82 20 141/59 (86) 98 11/13/18 16:00 80 11/13/18 16:00 55 11/13/18 16:00 Mechanical Ventilator 11/13/18 15:10 73 27 65 11/13/18 13:21 100.2 11/13/18 13:02 78 31 65 11/13/18 12:47 94 147/61 11/13/18 12:00 Mechanical Ventilator 11/13/18 12:00 55 11/13/18 12:00 98 11/13/18 12:00 102.0 94 22 146/61 (89) 99 11/13/18 11:00 93 29 45 Height (Feet): 5 Height (Inches): 8.00 Weight (Pounds): 144 Laboratory Tests Test 11/14/18 02:40 White Blood Count 16.2 K/UL (4.8-10.8) H Red Blood Count 2.77 M/UL (4.70-6.10) L Hemoglobin 7.9 G/DL (14.2-18.0) L Hematocrit 24.6 % (42.0-52.0) L Mean Corpuscular Volume 89 FL (80-99) Mean Corpuscular Hemoglobin 28.7 PG (27.0-31.0) Mean Corpuscular Hemoglobin Concent 32.3 G/DL (32.0-36.0) Red Cell Distribution Width 15.3 % (11.6-14.8) H Platelet Count 301 K/UL (150-450) Mean Platelet Volume 6.7 FL (6.5-10.1) Neutrophils (%) (Auto) % (45.0-75.0) Lymphocytes (%) (Auto) % (20.0-45.0) Monocytes (%) (Auto) % (1.0-10.0) Eosinophils (%) (Auto) % (0.0-3.0) Basophils (%) (Auto) % (0.0-2.0) Differential Total Cells Counted 100 Neutrophils % (Manual) 96 % (45-75) H Lymphocytes % (Manual) 2 % (20-45) L Monocytes % (Manual) 2 % (1-10) Eosinophils % (Manual) 0 % (0-3) Basophils % (Manual) 0 % (0-2) Band Neutrophils 0 % (0-8) Platelet Estimate Adequate Platelet Morphology Normal Sodium Level 152 MMOL/L (136-145) H Potassium Level 1.7 MMOL/L (3.5-5.1) *L Chloride Level 106 MMOL/L (98-107) Carbon Dioxide Level 39 MMOL/L (21-32) H Anion Gap 6 mmol/L (5-15) Blood Urea Nitrogen 17 mg/dL (7-18) Creatinine 1.1 MG/DL (0.55-1.30) Estimat Glomerular Filtration Rate > 60 mL/min (>60) Glucose Level 108 MG/DL (74-106) H Calcium Level 7.0 MG/DL (8.5-10.1) L Total Bilirubin 0.8 MG/DL (0.2-1.0) Aspartate Amino Transf (AST/SGOT) 20 U/L (15-37) Alanine Aminotransferase (ALT/SGPT) 15 U/L (12-78) Alkaline Phosphatase 84 U/L (46-116) Total Protein 5.9 G/DL (6.4-8.2) L Albumin 1.3 G/DL (3.4-5.0) L Globulin 4.6 g/dL Albumin/Globulin Ratio 0.3 (1.0-2.7) L Current Medications Medications (Trade) Dose Ordered Sig/Ingrid Route PRN Reason Start Time Stop Time Status Last Admin Dose Admin Acetaminophen (Tylenol) 650 mg Q4H PRN ORAL Mild Pain/Temp > 100.5 11/14/18 01:15 12/14/18 01:14 11/14/18 03:30 Ceftriaxone Sodium 1 gm/ Dextrose 55 ml @ 110 mls/hr Q24H IVPB 11/11/18 21:00 11/17/18 20:59 11/13/18 21:19 Chlorhexidine Gluconate (Neisha-Hex 2%) 1 applic DAILY@2000 TOPIC 11/14/18 20:00 12/14/18 19:59 Dextrose (Dextrose 50%) 25 ml Q30M PRN IV Hypoglycemia 11/11/18 20:15 12/07/18 18:14 Dextrose (Dextrose 50%) 50 ml Q30M PRN IV Hypoglycemia 11/11/18 20:15 12/07/18 18:14 Diltiazem HCl (Cardizem) 90 mg BEFORE MEALS ORAL 11/12/18 06:30 12/11/18 16:29 11/14/18 06:27 Heparin Sodium (Porcine) (Heparin 5000 units/ml) 5,000 units EVERY 12 HOURS SUBQ 11/11/18 21:00 12/07/18 20:59 11/13/18 21:22 Heparin Sodium/ Sodium Chloride (Heparin 1000 units/500ml Premix) 1,000 unit ONCE PRN IV picc line placement 11/14/18 10:15 11/16/18 10:14 Lidocaine HCl (Xylocaine 1% 30ml) 30 ml ONCE PRN INJ picc line placement 11/14/18 10:15 11/16/18 10:14 Lorazepam (Ativan 2mg/ml 1ml) 2 mg Q2H PRN IV For Anxiety 11/11/18 20:15 11/14/18 18:14 Metoprolol Tartrate (Lopressor) 100 mg Q12HR ORAL 11/11/18 21:00 12/09/18 22:14 11/13/18 21:18 Morphine Sulfate (Morphine Sulfate) 4 mg Q4H PRN IVP Severe Pain (Pain Scale 7-10) 11/11/18 20:15 11/14/18 20:14 Ondansetron HCl (Zofran) 4 mg Q6H PRN IVP Nausea & Vomiting 11/11/18 20:15 12/11/18 20:14 Pantoprazole (Protonix) 40 mg DAILY IV 11/12/18 09:00 12/08/18 08:59 11/13/18 09:25 Polyethylene Glycol (Miralax) 17 gm DAILYPRN PRN ORAL Constipation 11/11/18 20:15 12/11/18 20:14 Potassium Chloride 100 ml @ 100 mls/hr Q1H IVPB 11/14/18 10:00 11/14/18 11:59 Potassium Chloride (K-Dur) 40 meq Q4H ORAL 11/14/18 07:00 11/14/18 15:01 11/14/18 07:33 Sodium Chloride 1,000 ml @ 75 mls/hr [id number] IV 11/11/18 20:15 12/07/18 20:14 11/14/18 01:54 Sodium Chloride 1,000 ml @ 999 mls/hr Q1H1M ONCE IV 11/14/18 10:00 11/14/18 11:00 UNV Vancomycin HCl (Vanco rx to dose) 1 ea DAILY PRN MISC . 11/11/18 20:15 12/11/18 20:14 Vancomycin HCl 750 mg/Sodium Chloride 275 ml @ 183.333 mls/hr Q12HR@0100,1300 IVPB 11/13/18 15:00 11/20/18 16:00 11/14/18 00:34 Libertad Dimas M.D. Nov 14, 2018 10:40
[2018-11-14] MEDS: Pantoprazole Inj IV SCH (10:48)
[2018-11-14] MEDS: Heparin 5000 units/ml inj SUBQ SCH ×2 (10:56→21:00)
[2018-11-14] MEDS ORDERED: Piperacillin/Tazobactam 3.375 GM in NS 110 ML IVPB SCH ×2 (11:00→14:00)
--- NOTE | 2018-11-14 11:31 | Pulmonolgy Critical Care Note ---
Critical Care - Asmt/Plan Problems: (1) Nosocomial pneumonia (2) Sepsis (3) Ventilator dependent (4) Schizophrenia (5) Feeding by G-tube (6) Chronic respiratory failure Respiratory: adjust tidal volume, adjust FIO2, CXR Cardiac: continue to monitor HR/BP Renal: F/U I&O, keep IV fluid, check electrolytes Infectious Disease: check cultures Gastrointestinal: continue feedings/current rate Endocrine: monitor blood sugar, check TSH Hematologic: transfuse if hgb<8.5 Neurologic: PRN Ativan, PRN Morphine, keep patient comfortable Prophylaxis: Heparin Notes Reviewed: cardio, renal Discussed with: nurses, consultants, correctional casework specialistcreative project manager - Objective Last 24 Hour Vital Signs Date Time Temp Pulse Resp B/P (MAP) Pulse Ox O2 Delivery O2 Flow Rate FiO2 11/14/18 09:00 80 44/34 11/14/18 08:00 80 11/14/18 08:00 Mechanical Ventilator 11/14/18 08:00 102.7 93 22 124/52 (76) 94 11/14/18 06:27 82 132/60 11/14/18 05:00 82 25 65 11/14/18 04:00 Mechanical Ventilator 11/14/18 04:00 65 11/14/18 04:00 100.6 88 20 132/60 (84) 95 11/14/18 03:28 94 11/14/18 03:00 77 29 65 11/14/18 00:35 74 27 65 11/14/18 00:00 65 11/14/18 00:00 99.8 78 24 131/55 (80) 95 11/13/18 23:56 Mechanical Ventilator 11/13/18 23:31 71 11/13/18 23:00 71 25 65 11/13/18 21:18 84 141/59 11/13/18 21:10 84 27 65 11/13/18 20:00 98.6 81 24 133/61 (85) 99 11/13/18 20:00 81 11/13/18 20:00 65 11/13/18 20:00 Mechanical Ventilator 11/13/18 19:00 81 29 65 11/13/18 18:00 98.9 11/13/18 17:28 82 32 65 11/13/18 16:27 82 141/59 11/13/18 16:00 100.8 82 20 141/59 (86) 98 11/13/18 16:00 80 11/13/18 16:00 55 11/13/18 16:00 Mechanical Ventilator 11/13/18 15:10 73 27 65 11/13/18 13:21 100.2 11/13/18 13:02 78 31 65 11/13/18 12:47 94 147/61 11/13/18 12:00 Mechanical Ventilator 11/13/18 12:00 55 11/13/18 12:00 98 11/13/18 12:00 102.0 94 22 146/61 (89) 99 Status: awake Condition: critical HEENT: atraumatic Lungs: rales, rhonchi Heart: HR/BP stable Abdomen: soft, active bowel sounds Extremities: no C/C/E Decubiti: stage Critical Care - Subjective ROS Limited/Unobtainable: Yes Condition: critical EKG Rhythm: Sinus Rhythm FI02: 80 Vent Support Breath Rate: 12 Vent Support Mode: AC Vent Tidal Volume: 450 Sputum Amount: Large PEEP: 5.0 PIP: 41 Tube Feeding Amount: 30 I&O: Intake and Output 11/13/18 11/14/18 19:00 07:00 Intake Total 1493.333 ml 1656.666 ml Output Total 800 ml 550 ml Balance 693.333 ml 1106.666 ml Intake Free Water 200 ml 50 ml IV Total 933.333 ml 1246.666 ml Tube Feeding 360 ml 360 ml Output Urine Total 800 ml 550 ml # Voids 1 CXR: extensive pneumonia Labs: Laboratory Tests Test 11/14/18 02:40 White Blood Count 16.2 K/UL (4.8-10.8) H Red Blood Count 2.77 M/UL (4.70-6.10) L Hemoglobin 7.9 G/DL (14.2-18.0) L Hematocrit 24.6 % (42.0-52.0) L Mean Corpuscular Volume 89 FL (80-99) Mean Corpuscular Hemoglobin 28.7 PG (27.0-31.0) Mean Corpuscular Hemoglobin Concent 32.3 G/DL (32.0-36.0) Red Cell Distribution Width 15.3 % (11.6-14.8) H Platelet Count 301 K/UL (150-450) Mean Platelet Volume 6.7 FL (6.5-10.1) Neutrophils (%) (Auto) % (45.0-75.0) Lymphocytes (%) (Auto) % (20.0-45.0) Monocytes (%) (Auto) % (1.0-10.0) Eosinophils (%) (Auto) % (0.0-3.0) Basophils (%) (Auto) % (0.0-2.0) Differential Total Cells Counted 100 Neutrophils % (Manual) 96 % (45-75) H Lymphocytes % (Manual) 2 % (20-45) L Monocytes % (Manual) 2 % (1-10) Eosinophils % (Manual) 0 % (0-3) Basophils % (Manual) 0 % (0-2) Band Neutrophils 0 % (0-8) Platelet Estimate Adequate Platelet Morphology Normal Sodium Level 152 MMOL/L (136-145) H Potassium Level 1.7 MMOL/L (3.5-5.1) *L Chloride Level 106 MMOL/L (98-107) Carbon Dioxide Level 39 MMOL/L (21-32) H Anion Gap 6 mmol/L (5-15) Blood Urea Nitrogen 17 mg/dL (7-18) Creatinine 1.1 MG/DL (0.55-1.30) Estimat Glomerular Filtration Rate > 60 mL/min (>60) Glucose Level 108 MG/DL (74-106) H Calcium Level 7.0 MG/DL (8.5-10.1) L Total Bilirubin 0.8 MG/DL (0.2-1.0) Aspartate Amino Transf (AST/SGOT) 20 U/L (15-37) Alanine Aminotransferase (ALT/SGPT) 15 U/L (12-78) Alkaline Phosphatase 84 U/L (46-116) Total Protein 5.9 G/DL (6.4-8.2) L Albumin 1.3 G/DL (3.4-5.0) L Globulin 4.6 g/dL Albumin/Globulin Ratio 0.3 (1.0-2.7) L Bria Ward MD Nov 14, 2018 11:31
--- NOTE | 2018-11-14 11:40 | NUR ---
NURSE NOTES: Received bedside report from RUDDY Weinberg. Pt. not arousable to verbal or physical stimulation. B/P: 85/43, HR: 95, RR: 25. Trach to vent. Portex 8 with setting of AC12/VT450/FiO2 at 100%/P5. IV at left wrist #22g. patent/intact running NS at 75cc/hr. Circulation Tender added 2 additional IV's- Rt. Wrist #20g and Lt hand #20g, patent/ intact. Condom cath patent/intact draining yellow colored urine. Bed in low position, locked, bed alarm on. Call light within reach. Will resume plan of care. Addendum: 11/14/18 at 1151 by Suzanne Malik RN Wrong time.
--- NOTE | 2018-11-14 11:50 | NUR ---
PIANO REFINISHERPILOT SAFETY INSPECTOR SI: RESP FAILURE TRACH/VENT DEPENDENT SEPSIS T. 102.7 HR 93 RR 22 B/P 84/28 AC 12 TV 450 FIO2 80% PEEP 5 WBC 16.2 H/H 7.9/24.6 NA 152 K 1.7 CO2 39 IS: IV NS @ 75ML/HR ZOSYN IV KCL IV VANCO IV ICU STATUS
--- NOTE | 2018-11-14 12:00 | NUR ---
NURSE NOTES: Dr. Ward at bedside assessing pt. Updated him about pts current condition. Repeat Potassium level ordered, to be drawn after potassium replacement has finished infusing. Hypotension improving B/P: 108/41, HR: 86. No signs of distress noted. Current vent settings: AC 12 TV 450 FIO2 90% PEEP 5. Oral care done. Will continue to monitor.
[2018-11-14] MEDS ORDERED: Miralax 17gm pkt ORAL PRN (13:00)
[2018-11-14] MEDS ORDERED: Morphine Sulfate 4mg/ml Inj (IV USE ONLY) IVP PRN (13:15)
[2018-11-14] MEDS ORDERED: LORazepam Inj 2mg/ml 1ml IV PRN (13:15)
--- NOTE | 2018-11-14 14:10 | NUR ---
NURSE NOTES: Radiology at bedside performed Right Upper Arm double lumen PICC line insertion, 4 [place]. Pt tolerated procedure well. B/P:113/43, HR:91, RR:27, spO2 100%.
--- NOTE | 2018-11-14 14:35 | Diagnostic Imaging Report ---
Indication: Dyspnea, status post CODE BLUE Technique: One view of the chest Comparison: 11/12/2018 Findings: Previously demonstrated central venous catheter is no longer evident. Tracheostomy remains. Again demonstrated is diffuse and extensive bilateral interstitial and airspace disease. This appears worse than on the previous study. Impression: Interim worsening of bilateral diffuse and extensive interstitial and airspace infiltrates versus edema
--- NOTE | 2018-11-14 14:37 | NUR ---
*-* INSURANCE *-* ALL CLINICALS AND REVIEWS HAVE BEEN FAXED TO: [employer] REF# [id number] NURY:FINN P: [phone] F: [phone] & [facility] TRK# [id number] F: [phone]
--- NOTE | 2018-11-14 14:55 | NUR ---
RADIOLOGY NOTE: RIGHT UPPER EXTREMITY PICC PLACED.
--- NOTE | 2018-11-14 15:00 | Cardiology Progress Note ---
Assessment/Plan Assessment/Plan 1. Respiratory failure, acute on chronic. 2. Pneumonia. 3. Respiratory dependence. 4. Hypertension. 5. History of alcohol withdrawal. 6. History of GI bleed status post endoscopy. 7. Hypernatremia. 8. hypokalemia severe 9. s/p cardiac arrest apparently had prolem with pulm secretion adn fever was found kali on tele code blue called 3 min acls/ bsls with 1 roudn of epi gota pulse bp was lwo ivf admisterd i was never notified now in icu on a vent not verbal or responsive bp was initially lwo now better post ivf bolus k was low was being supplemented ekg not done yet repeat lab pending ekg ordered now and for am d/w rn bp is now 122/38 hr in the 's will need cardiac labs reoprded tonit adn in am tele showed jusntional rhtym at time of code blue being called i will be away Tuesday evening and tue dr richardson covering Subjective ROS Limited/Unobtainable: Yes Subjective on vent not repsonsive post arrest s/p 3 min of acls with cpr adn 1 round of epi Objective Last 24 Hour Vital Signs Date Time Temp Pulse Resp B/P (MAP) Pulse Ox O2 Delivery O2 Flow Rate FiO2 11/14/18 14:00 88 26 113/43 (66) 100 11/14/18 13:01 92 27 114/40 (64) 100 11/14/18 12:58 90 27 90 11/14/18 12:00 92 11/14/18 12:00 90 11/14/18 12:00 Mechanical Ventilator 11/14/18 12:00 90 27 111/39 (63) 100 11/14/18 11:30 81 84/28 11/14/18 11:28 88 25 90 11/14/18 11:00 100.2 85 26 84/28 (46) 100 11/14/18 10:00 79 24 80/22 (41) 99 11/14/18 09:15 79 20 100 11/14/18 09:00 95 11/14/18 09:00 80 44/34 11/14/18 09:00 95 25 85/43 (57) 98 11/14/18 08:00 80 11/14/18 08:00 Mechanical Ventilator 11/14/18 08:00 102.7 93 22 124/52 (76) 94 11/14/18 07:11 89 23 65 11/14/18 06:27 82 132/60 11/14/18 05:00 82 25 65 11/14/18 04:00 Mechanical Ventilator 11/14/18 04:00 65 11/14/18 04:00 100.6 88 20 132/60 (84) 95 11/14/18 03:28 94 11/14/18 03:00 77 29 65 11/14/18 00:35 74 27 65 11/14/18 00:00 65 11/14/18 00:00 99.8 78 24 131/55 (80) 95 11/13/18 23:56 Mechanical Ventilator 11/13/18 23:31 71 11/13/18 23:00 71 25 65 11/13/18 21:18 84 141/59 11/13/18 21:10 84 27 65 11/13/18 20:00 98.6 81 24 133/61 (85) 99 11/13/18 20:00 81 11/13/18 20:00 65 11/13/18 20:00 Mechanical Ventilator 11/13/18 19:00 81 29 65 11/13/18 18:00 98.9 11/13/18 17:28 82 32 65 11/13/18 16:27 82 141/59 11/13/18 16:00 100.8 82 20 141/59 (86) 98 11/13/18 16:00 80 11/13/18 16:00 55 11/13/18 16:00 Mechanical Ventilator 11/13/18 15:10 73 27 65 General Appearance: no apparent distress, on vent Cardiovascular: normal rate Respiratory/Chest: rhonchi - bilaterally Abdomen: normal bowel sounds, non tender, soft Extremities: no swelling Intake and Output 11/13/18 11/14/18 19:00 07:00 Intake Total 1493.333 ml 1656.666 ml Output Total 800 ml 550 ml Balance 693.333 ml 1106.666 ml Intake Free Water 200 ml 50 ml IV Total 933.333 ml 1246.666 ml Tube Feeding 360 ml 360 ml Output Urine Total 800 ml 550 ml # Voids 1 Laboratory Tests Test 11/14/18 02:40 White Blood Count 16.2 K/UL (4.8-10.8) H Red Blood Count 2.77 M/UL (4.70-6.10) L Hemoglobin 7.9 G/DL (14.2-18.0) L Hematocrit 24.6 % (42.0-52.0) L Mean Corpuscular Volume 89 FL (80-99) Mean Corpuscular Hemoglobin 28.7 PG (27.0-31.0) Mean Corpuscular Hemoglobin Concent 32.3 G/DL (32.0-36.0) Red Cell Distribution Width 15.3 % (11.6-14.8) H Platelet Count 301 K/UL (150-450) Mean Platelet Volume 6.7 FL (6.5-10.1) Neutrophils (%) (Auto) % (45.0-75.0) Lymphocytes (%) (Auto) % (20.0-45.0) Monocytes (%) (Auto) % (1.0-10.0) Eosinophils (%) (Auto) % (0.0-3.0) Basophils (%) (Auto) % (0.0-2.0) Differential Total Cells Counted 100 Neutrophils % (Manual) 96 % (45-75) H Lymphocytes % (Manual) 2 % (20-45) L Monocytes % (Manual) 2 % (1-10) Eosinophils % (Manual) 0 % (0-3) Basophils % (Manual) 0 % (0-2) Band Neutrophils 0 % (0-8) Platelet Estimate Adequate Platelet Morphology Normal Sodium Level 152 MMOL/L (136-145) H Potassium Level 1.7 MMOL/L (3.5-5.1) *L Chloride Level 106 MMOL/L (98-107) Carbon Dioxide Level 39 MMOL/L (21-32) H Anion Gap 6 mmol/L (5-15) Blood Urea Nitrogen 17 mg/dL (7-18) Creatinine 1.1 MG/DL (0.55-1.30) Estimat Glomerular Filtration Rate > 60 mL/min (>60) Glucose Level 108 MG/DL (74-106) H Calcium Level 7.0 MG/DL (8.5-10.1) L Total Bilirubin 0.8 MG/DL (0.2-1.0) Aspartate Amino Transf (AST/SGOT) 20 U/L (15-37) Alanine Aminotransferase (ALT/SGPT) 15 U/L (12-78) Alkaline Phosphatase 84 U/L (46-116) Total Protein 5.9 G/DL (6.4-8.2) L Albumin 1.3 G/DL (3.4-5.0) L Globulin 4.6 g/dL Albumin/Globulin Ratio 0.3 (1.0-2.7) L Esteban Roman MD Nov 14, 2018 15:00
[2018-11-14 15:19] LABS: HEMATOCRIT 22.2 % (42.0-52.0); HEMOGLOBIN 7.2 G/DL (14.2-18.0); MEAN CORPUSCULAR VOLUME 89 FL (80-99); PLATELET COUNT 271 K/UL (150-450); RED BLOOD COUNT 2.49 M/UL (4.70-6.10); RED CELL DISTRIBUTION WIDTH 15.1 % (11.6-14.8); WHITE BLOOD COUNT 17.8 K/UL (4.8-10.8)
[2018-11-14 15:20] LABS: BASOPHILS % (AUTO) 0.1 % (0.0-2.0); EOSINOPHILS % (AUTO) 0.2 % (0.0-3.0); LYMPHOCYTES % (AUTO) 6.1 % (20.0-45.0); MONOCYTES % (AUTO) 3.2 % (1.0-10.0); NEUTROPHILS % (AUTO) 90.3 % (45.0-75.0)
--- NOTE | 2018-11-14 15:23 | Diagnostic Imaging Report ---
Indications: Needs long-term IV access Technique: Procedure performed at bedside. Procedural timeout performed. Ultrasound confirms patent compressible right basilic vein. Total sterile technique, including sterile probe cover and sterile gel, sterile gloves, hand hygiene, hat, mask,, sterile gown, large sterile drape, and preparation with 2% chlorhexidine utilized. Local anesthesia with 1% lidocaine. Under real-time ultrasound guidance, puncture right basilic vein using 21-gauge needle, passage 0.018 guidewire, exchange for 4 [place] peel-away sheath. 4 [place] Bard dual-lumen power PICC cut to 33 cm. It was inserted through the peel-away sheath. Peel-away sheath and guidewire removed. Catheter fixed to the skin. Both catheter ports aspirated and flushed. Patient tolerated procedure well, without immediate complication. Followup chest x-ray obtained, documents catheter tip position at the mid superior vena cava Impression: Successful bedside placement of right arm PICC under sonographic guidance, as described above.
--- NOTE | 2018-11-14 15:30 | NUR ---
NURSE NOTES: Dr. Ward returned call for a message notifying him of potassium level 2.2, as reported by the ;neil Addendum: 11/14/18 at 1746 by Suzanne Malik RN incomplete note.
[2018-11-14 15:55] LABS: ANION GAP 6 mmol/L (5-15); BLOOD UREA NITROGEN 23 mg/dL (7-18); CALCIUM 6.3 MG/DL (8.5-10.1); CARBON DIOXIDE 36 MMOL/L (21-32); CHLORIDE 111 MMOL/L (98-107); CREATININE 1.6 MG/DL (0.55-1.30); SODIUM 153 MMOL/L (136-145)
[2018-11-14 15:58] LABS: POTASSIUM 2.2 MMOL/L (3.5-5.1)
--- NOTE | 2018-11-14 16:03 | Surgery Progress Note ---
Surgery Progress Note Subjective Additional Comments Patient returned to intensive care unit hypotensive and with altered mental status. Patient now not following commands awake or responsive at all. Central line has been removed and PICC line is replaced Leukocytosis Objective Last 24 Hour Vital Signs Date Time Temp Pulse Resp B/P (MAP) Pulse Ox O2 Delivery O2 Flow Rate FiO2 11/14/18 15:45 80 119/40 11/14/18 15:02 92 24 70 11/14/18 14:00 88 26 113/43 (66) 100 11/14/18 13:01 92 27 114/40 (64) 100 11/14/18 12:58 90 27 90 11/14/18 12:00 92 11/14/18 12:00 90 11/14/18 12:00 Mechanical Ventilator 11/14/18 12:00 90 27 111/39 (63) 100 11/14/18 11:30 81 84/28 11/14/18 11:28 88 25 90 11/14/18 11:00 100.2 85 26 84/28 (46) 100 11/14/18 10:00 79 24 80/22 (41) 99 11/14/18 09:15 79 20 100 11/14/18 09:00 95 11/14/18 09:00 80 44/34 11/14/18 09:00 95 25 85/43 (57) 98 11/14/18 08:00 80 11/14/18 08:00 Mechanical Ventilator 11/14/18 08:00 102.7 93 22 124/52 (76) 94 11/14/18 07:11 89 23 65 11/14/18 06:27 82 132/60 11/14/18 05:00 82 25 65 11/14/18 04:00 Mechanical Ventilator 11/14/18 04:00 65 11/14/18 04:00 100.6 88 20 132/60 (84) 95 11/14/18 03:28 94 11/14/18 03:00 77 29 65 11/14/18 00:35 74 27 65 11/14/18 00:00 65 11/14/18 00:00 99.8 78 24 131/55 (80) 95 11/13/18 23:56 Mechanical Ventilator 11/13/18 23:31 71 11/13/18 23:00 71 25 65 11/13/18 21:18 84 141/59 11/13/18 21:10 84 27 65 11/13/18 20:00 98.6 81 24 133/61 (85) 99 11/13/18 20:00 81 11/13/18 20:00 65 11/13/18 20:00 Mechanical Ventilator 11/13/18 19:00 81 29 65 11/13/18 18:00 98.9 11/13/18 17:28 82 32 65 11/13/18 16:27 82 141/59 I&O Intake and Output 11/13/18 11/14/18 19:00 07:00 Intake Total 1493.333 ml 1656.666 ml Output Total 800 ml 550 ml Balance 693.333 ml 1106.666 ml Intake Free Water 200 ml 50 ml IV Total 933.333 ml 1246.666 ml Tube Feeding 360 ml 360 ml Output Urine Total 800 ml 550 ml # Voids 1 Dressing: dry Wound: clean Cardiovascular: RSR Respiratory: decreased breath sounds Abdomen: soft, present bowel sounds, non-distended Extremities: no cyanosis, other Laboratory Tests Test 11/14/18 02:40 11/14/18 15:00 White Blood Count 16.2 K/UL (4.8-10.8) H 17.8 K/UL (4.8-10.8) H Red Blood Count 2.77 M/UL (4.70-6.10) L 2.49 M/UL (4.70-6.10) L Hemoglobin 7.9 G/DL (14.2-18.0) L 7.2 G/DL (14.2-18.0) L Hematocrit 24.6 % (42.0-52.0) L 22.2 % (42.0-52.0) L Mean Corpuscular Volume 89 FL (80-99) 89 FL (80-99) Mean Corpuscular Hemoglobin 28.7 PG (27.0-31.0) 28.8 PG (27.0-31.0) Mean Corpuscular Hemoglobin Concent 32.3 G/DL (32.0-36.0) 32.3 G/DL (32.0-36.0) Red Cell Distribution Width 15.3 % (11.6-14.8) H 15.1 % (11.6-14.8) H Platelet Count 301 K/UL (150-450) 271 K/UL (150-450) Mean Platelet Volume 6.7 FL (6.5-10.1) 7.2 FL (6.5-10.1) Neutrophils (%) (Auto) % (45.0-75.0) 90.3 % (45.0-75.0) H Lymphocytes (%) (Auto) % (20.0-45.0) 6.1 % (20.0-45.0) L Monocytes (%) (Auto) % (1.0-10.0) 3.2 % (1.0-10.0) Eosinophils (%) (Auto) % (0.0-3.0) 0.2 % (0.0-3.0) Basophils (%) (Auto) % (0.0-2.0) 0.1 % (0.0-2.0) Differential Total Cells Counted 100 Neutrophils % (Manual) 96 % (45-75) H Lymphocytes % (Manual) 2 % (20-45) L Monocytes % (Manual) 2 % (1-10) Eosinophils % (Manual) 0 % (0-3) Basophils % (Manual) 0 % (0-2) Band Neutrophils 0 % (0-8) Platelet Estimate Adequate Platelet Morphology Normal Sodium Level 152 MMOL/L (136-145) H 153 MMOL/L (136-145) H Potassium Level 1.7 MMOL/L (3.5-5.1) *L 2.2 MMOL/L (3.5-5.1) *L Chloride Level 106 MMOL/L (98-107) 111 MMOL/L (98-107) H Carbon Dioxide Level 39 MMOL/L (21-32) H 36 MMOL/L (21-32) H Anion Gap 6 mmol/L (5-15) 6 mmol/L (5-15) Blood Urea Nitrogen 17 mg/dL (7-18) 23 mg/dL (7-18) H Creatinine 1.1 MG/DL (0.55-1.30) 1.6 MG/DL (0.55-1.30) H Estimat Glomerular Filtration Rate > 60 mL/min (>60) 42.9 mL/min (>60) Glucose Level 108 MG/DL (74-106) H 107 MG/DL (74-106) H Calcium Level 7.0 MG/DL (8.5-10.1) L 6.3 MG/DL (8.5-10.1) L Total Bilirubin 0.8 MG/DL (0.2-1.0) Pending Aspartate Amino Transf (AST/SGOT) 20 U/L (15-37) Pending Alanine Aminotransferase (ALT/SGPT) 15 U/L (12-78) Pending Alkaline Phosphatase 84 U/L (46-116) Pending Total Protein 5.9 G/DL (6.4-8.2) L Pending Albumin 1.3 G/DL (3.4-5.0) L Pending Globulin 4.6 g/dL Pending Albumin/Globulin Ratio 0.3 (1.0-2.7) L Magnesium Level Pending Troponin I Pending Plan Problems: (1) Abdominal distension Assessment & Plan: abd distention possible sbo CT noted as below IV fluids IV Abx resuscitation AM labs CXR worsening KUB noted and stable g tube to suction will follow with recs (2) Sepsis Assessment & Plan: leukocytosis anemia lactic acidosis abnormal labs resp depression abd distention IV fluids IV Abx AM labs PICC will follow with recs thank you Chest: The chest demonstrates extensive dense consolidation of the entire right lung. There is also atelectasis of much of the right lower lobe. There is a small amount of pleural fluid on the right. Extensive although less severe interstitial and airspace opacities are also seen in the left upper and lower lobes, with some areas of consolidated lung, interstitial edema and groundglass parenchymal opacity elsewhere. There is trace pleural fluid on the left. The heart is mildly enlarged. There is a small amount of pericardial effusion laterally. No mediastinal or hilar mass or adenopathy. There is a tracheostomy. The included thyroid is unremarkable. The esophagus is unremarkable. The bones are unremarkable. Abdomen pelvis:There is diffuse distention of the small bowel which is diffusely fluid-filled. Distention extends throughout most of length of the small bowel. The transition point appears to be at the level of the distal ileum in the anterior left lower quadrant. Transition point is somewhat gradual. Circumferential beads of gas in the left upper quadrant small bowel loops raise suspicion for small bowel pneumatosis. However, this is not definitely evident in the portions of small bowel that are likely filled with gas, so could represent so-called pseudopneumatosis related to gas between the bowel wall and small bowel contents. There is no bowel wall thickening demonstrated. The proximal mesenteric vessels are patent, as are the superior mesenteric vein and splenic vein. There is a gastrostomy in place. The cecum is distended. The appendix is normal. There is distention of the rectum with feces and mild wall thickening of the rectum. There is trace free fluid in Morison's pouch. No free intraperitoneal gas. The liver, gallbladder, bile ducts, pancreas, spleen, adrenals are unremarkable. Subcentimeter low-attenuation lesions in the kidneys most likely represent cysts The bones demonstrate mild degenerative spondylosis changes. IMPRESSION: Chest: Extensive consolidation of the right lung, most likely pneumonia. There is also a component of atelectasis. Less extensive but still severe parenchymal opacities on the left, most likely represent pneumonia but could also represent pulmonary edema Small bilateral pleural effusions Cardiomegaly Tracheostomy Abdomen pelvis: Diffuse distention of the small bowel which is diffusely fluid-filled. There is tapering to normal caliber distal ileum. There is also some distention of the cecum. Findings may be on a functional basis, but the possibility of distal small bowel obstruction should also be considered. There is also evidence of small bowel pneumatosis versus pseudopneumatosis. There is no evidence of proximal arterial insufficiency or of mesenteric venous insufficiency Distended rectum with feces, mild wall thickening of the rectum could indicate stercoral proctitis Trace free fluid in Morison's pouch Gastrostomy Incidental finding of degenerative spondylosis Kevin Conn Nov 14, 2018 16:02
[2018-11-14 16:34] LABS: ALANINE AMINOTRANSFERASE 17 U/L (12-78); ALBUMIN 1.1 G/DL (3.4-5.0); ALBUMIN/GLOBULIN RATIO 0.3 (1.0-2.7); ALKALINE PHOSPHATASE 82 U/L (46-116); ASPARTATE AMINO TRANSFERASE 21 U/L (15-37); BILIRUBIN,TOTAL 0.8 MG/DL (0.2-1.0)
--- NOTE | 2018-11-14 17:30 | NUR ---
NURSE NOTES: Dr. Ward returned call for a left message notifying him of potassium level 2.2, as reported by the lab. Potassium replacement ordered. Will administer and monitor.
--- NOTE | 2018-11-14 18:25 | NUR ---
NURSE NOTES: Dr. Moreno ordered to have one unit PRBC to be transfused for hgb of 7.2. 20kcl of potassium chloride and 20MM of potassium phosphate for 2.2 serum potassium, 2g of magnesium for 1.3 of serum magnesium. will place ordered given by dr. Moreno.
--- NOTE | 2018-11-14 19:15 | NUR ---
HAND-OFF: Report given to RUDDY Jaramillo.
--- NOTE | 2018-11-14 19:30 | NUR ---
NURSE NOTES: Received pt in critical but guarded condition. S/P code blue in SDU. Pt is unresponsive even to deep pain but eyes opened and doesn't blink to threat. Pupils 4 sluggish. Vented per trach, noted vent settings of AC12 TV450 peep 5 fiO2 .90 saturating 92-95%. Secretions moderate, white thick. Pt still has hypoactive gag reflex doesn't move any extremity. NSR on the scope, temp 99 axillary. PEG intact, GTF with Jevity 1.2 continues at 30ml/h with 0 residuals. Condom cath intact but no urine output. Skin dry and intact.Will continue to monitor pt's VS and LOC.
[2018-11-14] MEDS ORDERED: Dyna-Hex 2% Top Sol 2oz TOPIC SCH ×2 (20:00)
--- NOTE | 2018-11-14 20:00 | NUR ---
NURSE NOTES: Bladder scanned, revealed some residual urine in the bladder. Order obtained from to start mo cath. Fr 16 inserted with no resistance and drained 40ml-50ml. Awaiting availabilty of PRBC. PICC on SHABNAM patent; all other PIV sites in use for multiple IVPB's
--- NOTE | 2018-11-14 21:20 | NUR ---
NURSE NOTES: One unit PRBC started. Pre tx temp 99. Tylenol 650mg given via GT. Will continue to monitor
--- NOTE | 2018-11-14 21:45 | NUR ---
NURSE NOTES: Troponin result of 0.[address] Pedersen. No orders
[2018-11-14] MEDS ORDERED: Potassium Phosphate 20 MM in NS 275 ML IV ONE (22:00)
--- NOTE | 2018-11-14 22:00 | NUR ---
NURSE NOTES: Transfusion in progress without any reaction noted. Temp remains at 99 axillary. BP stable. Remains unresponsive
[2018-11-14] MEDS: Piperacillin/Tazobactam 3.375 GM in NS 110 ML IVPB SCH (22:23)
[2018-11-15] VITALS (27 sets, daily range): BP systolic 36–139; BP diastolic 13–90
--- NOTE | 2018-11-15 00:39 | NUR ---
NURSE NOTES: Blood transfusion completed without any reaction observed. Post transfusion temp 98.9 axillary,BP stable. No cgange in neuro status. Eyes covered. GTF on hold
--- NOTE | 2018-11-15 02:00 | NUR ---
NURSE NOTES: Pt has stronger gag reflex but still eyes opened and doesn't blink to threat. Kept eyes covered. Breathing shallow, tachypneic. PIV sites intact. Urine output 5-10ml/h; BP stable.
[2018-11-15] MEDS: Vancomycin 750 MG in NS 275 ML IVPB SCH (02:19)
--- NOTE | 2018-11-15 04:00 | NUR ---
NURSE NOTES: skin hot to touch, temp 101.9 axillary. Cooling measures done; Tylenol 650mg given per GT. Had 1 large diarrhea. Pt remains to have gag reflex but doesn't move any extremity. Complete bed bath done. Skin remains intact. PIV sites patent. GT site dressing changed. Will continue to monitor
--- NOTE | 2018-11-15 04:00 | Progress Note ---
DATE: 11/14/2018 SUBJECTIVE: The patient with cardiac arrest early this morning. He was found to be without pulse and without blood pressure. He underwent cardiopulmonary resuscitation. His blood pressure his respiration resumed. The patient is now alert and responsive. His eyes are open. He has no eye contact. Eyes are now in the upper portion of the ocular globe. PHYSICAL EXAMINATION: VITAL SIGNS: Blood pressure 127/73, pulse is 94, respirations are 17, temperature is 100. HEENT: Eyes were normal. ENT, mucous membranes were moist and intact. NECK: Supple with no JVD and without lymph nodes. Tracheostomy site is clean. LUNGS: Clear without rhonchi, rales, or wheezing. Secretions are small, thin, and white. HEART: Normal sounds with regular beats. There is no S3, S4, or pericardial rub. ABDOMEN: Soft and nontender with normal bowel sounds. Gastrostomy site is clean. EXTREMITIES: Warm without cyanosis, clubbing, or edema. LABORATORY AND DIAGNOSTIC DATA: His hemoglobin is 7.2, hematocrit 22.2 with MCV of 89, WBC of 17.8, and platelet of 271,000. His BUN and creatinine are 23 and 1.6 respectively. Sodium is 153, potassium 2.2, chloride 111, CO2 is 36. SGOT, SGPT, and alkaline phosphatase are normal. His calcium is 6.3 and magnesium is 1.3. PLAN: Potassium, magnesium, and calcium were given to correct the current value. CBC, BMP, magnesium, and phosphorus will be done in the morning. Pierre Moreno M.D. DR: SILVIA JOB#: [id number] CC:
[2018-11-15] MEDS: Piperacillin/Tazobactam 3.375 GM in NS 110 ML IVPB SCH (05:39)
--- NOTE | 2018-11-15 06:00 | NUR ---
NURSE NOTES: Temp down to 100.7 orally. Cooling measures continues. No distress noted otherwise. Remains critical but guarded. Oliguric.BP stable. Tolerates GTF
[2018-11-15 06:03] LABS: HEMATOCRIT 26.4 % (42.0-52.0); HEMOGLOBIN 8.5 G/DL (14.2-18.0); MEAN CORPUSCULAR VOLUME 90 FL (80-99); PLATELET COUNT 285 K/UL (150-450); RED BLOOD COUNT 2.95 M/UL (4.70-6.10); RED CELL DISTRIBUTION WIDTH 15.6 % (11.6-14.8); WHITE BLOOD COUNT 18.6 K/UL (4.8-10.8)
[2018-11-15 06:10] LABS: INR 1.1 (0.9-1.1)
[2018-11-15] MEDS: dilTIAZem HCl 90mg tab ORAL SCH ×2 (06:32→11:30)
[2018-11-15 07:00] LABS: ALANINE AMINOTRANSFERASE 16 U/L (12-78); ALBUMIN 1.1 G/DL (3.4-5.0); ALBUMIN/GLOBULIN RATIO 0.2 (1.0-2.7); ALKALINE PHOSPHATASE 80 U/L (46-116); ANION GAP 9 mmol/L (5-15); BLOOD UREA NITROGEN 32 mg/dL (7-18); CALCIUM 6.7 MG/DL (8.5-10.1); CARBON DIOXIDE 32 MMOL/L (21-32); CHLORIDE 111 MMOL/L (98-107); CREATININE 2.5 MG/DL (0.55-1.30); PHOSPHORUS 4.4 MG/DL (2.5-4.9); POTASSIUM 3.4 MMOL/L (3.5-5.1); SODIUM 152 MMOL/L (136-145)
--- NOTE | 2018-11-15 07:04 | NUR ---
HAND-OFF: Report given to Buddy FOX.
--- NOTE | 2018-11-15 07:05 | NUR ---
NURSE NOTES: RECEIVED PATIENT FROM Jeffy KEYES RN. PATIENT IS LYING IN BED, NON-RESPONSIVE TO STIMULUS. 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 HR OF 92. TRACH TO VENT. PORTEX 8, VENT SETTINGS: AC 12, TV 450, FiO2 70%, PEEP 5. SATING AT 95%. NO SIGNS OF DISTRESS OF THE MOMENT. GT NOTED. GTF RUNNING JEVITY 1.2 AT 30ML/HR. BERRY NOTED CONNECTED TO BAG, PATENT. PREVIOUS NOD INFORMED DR SHELLEY OF THE URINE OUTPUT. IV'S ON L/R WRIST G20 AND L HAND G20. PICC ON R UA, DRESSING DRY AND INTACT. IVF RUNNING NS AT 75ML/HR. CALL LIGHT WITHIN REACH. BED AT LOWEST POSITION. SIDE RAILS UP. WILL CONTINUE TO MONITOR.
[2018-11-15 07:48] LABS: ASPARTATE AMINO TRANSFERASE 17 U/L (15-37)
--- NOTE | 2018-11-15 08:01 | NUR ---
NURSE NOTES: SPOKE WITH BOB FROM DR [facility] RE K 3.4 AND CALLED AND LEFT A MESSAGE TO DR ARANDA FOR TROPONIN LEVEL. AWAITING FOR CALL BACK. WILL CONTINUE TO MONITOR.
[2018-11-15] MEDS: Heparin 5000 units/ml inj SUBQ SCH (08:38)
[2018-11-15] MEDS ORDERED: Pantoprazole Inj IV SCH (09:00)
--- NOTE | 2018-11-15 09:18 | NUR ---
RADIOLOGY DEPT., ABDOMEN X-RAY COMPLETED.-P.DYE
--- NOTE | 2018-11-15 10:15 | NUR ---
NURSE NOTES: SEEN AND EXAMINED BY DR SHELLEY. MADE AWARE OF HR, BLOOD PRESSURE AND NO URINE OUTPUT. MADE NEW ORDERS AND CARRIED OUT. WILL CONTINUE TO MONITOR.
--- NOTE | 2018-11-15 10:42 | Pulmonolgy Critical Care Note ---
Critical Care - Asmt/Plan Problems: (1) Septic shock (2) Nosocomial pneumonia (3) Ventilator dependent (4) Schizophrenia (5) Feeding by G-tube (6) Chronic respiratory failure Respiratory: monitor respiratory rate, adjust FIO2, CXR Cardiac: continue pressors, continue to monitor HR/BP Renal: F/U I&O, keep IV fluid, increase IV fluid, check electrolytes, other - boluses until bp is more stable Infectious Disease: check cultures Gastrointestinal: continue feedings/current rate Endocrine: monitor blood sugar, check HgA1C Hematologic: monitor H/H, transfuse if hgb<8.5 Neurologic: PRN Ativan, keep patient comfortable Affect: PRN ativan Prophylaxis: Heparin Notes Reviewed: early childhood education specialist, renal Discussed with: nurses, consultants, correctional case records supervisorcampus manager - Objective Last 24 Hour Vital Signs Date Time Temp Pulse Resp B/P (MAP) Pulse Ox O2 Delivery O2 Flow Rate FiO2 11/15/18 09:14 88 28 70 11/15/18 08:37 96 106/53 11/15/18 08:00 98.1 96 25 106/53 (70) 100 11/15/18 08:00 Mechanical Ventilator 11/15/18 08:00 70 11/15/18 06:56 89 30 70 11/15/18 06:32 99 106/55 11/15/18 06:00 100.7 97 28 106/55 (72) 94 11/15/18 05:30 100.7 11/15/18 05:04 107 26 70 11/15/18 05:00 106 28 127/59 (81) 96 11/15/18 04:00 101.9 104 25 139/35 (69) 98 11/15/18 04:00 Mechanical Ventilator Mechanical Ventilator 11/15/18 04:00 70 11/15/18 04:00 104 11/15/18 03:21 91 24 70 11/15/18 03:00 102 25 133/25 (61) 97 11/15/18 02:00 98 25 128/33 (64) 98 11/15/18 01:00 99 25 134/23 (60) 94 11/15/18 00:55 94 25 70 11/15/18 00:00 99.0 87 25 119/37 (64) 97 11/15/18 00:00 70 11/15/18 00:00 87 11/15/18 00:00 Mechanical Ventilator 11/14/18 23:30 85 25 112/23 (52) 98 11/14/18 23:00 81 25 112/23 (52) 99 11/14/18 22:57 89 22 70 11/14/18 22:30 78 25 105/18 (47) 98 11/14/18 22:00 76 26 105/33 (57) 95 11/14/18 21:30 99.0 97 26 119/35 (63) 94 11/14/18 21:00 99 116/33 11/14/18 21:00 97 26 131/36 (67) 94 11/14/18 20:35 91 22 70 11/14/18 20:30 95 26 122/35 (64) 95 11/14/18 20:00 70 11/14/18 20:00 96 24 125/37 (66) 92 11/14/18 20:00 Mechanical Ventilator 11/14/18 20:00 96 11/14/18 19:30 99.0 95 28 114/42 (66) 95 11/14/18 19:13 95 23 70 11/14/18 19:00 97 28 111/45 (67) 99 11/14/18 18:00 92 30 119/48 (71) 99 11/14/18 17:00 94 31 127/46 (73) 99 11/14/18 16:39 94 30 70 11/14/18 16:00 100.0 89 24 114/42 (66) 98 11/14/18 16:00 90 11/14/18 16:00 Mechanical Ventilator 11/14/18 15:45 80 119/40 11/14/18 15:36 93 11/14/18 15:02 92 24 70 11/14/18 15:00 90 27 126/46 (72) 98 11/14/18 14:00 88 26 113/43 (66) 100 11/14/18 13:01 92 27 114/40 (64) 100 11/14/18 12:58 90 27 90 11/14/18 12:00 92 11/14/18 12:00 90 11/14/18 12:00 Mechanical Ventilator 11/14/18 12:00 90 27 111/39 (63) 100 11/14/18 11:30 81 84/28 10/8/19 11:28 88 25 90 11/14/18 11:00 100.2 85 26 84/28 (46) 100 Status: obtunded Condition: critical HEENT: atraumatic Heart: HR/BP stable Abdomen: soft, non-tender Extremities: no C/C/E, edema Critical Care - Subjective ROS Limited/Unobtainable: Yes Condition: critical EKG Rhythm: Sinus Rhythm FI02: 70 Vent Support Breath Rate: 12 Vent Support Mode: AC Vent Tidal Volume: 450 Sputum Amount: Scant PEEP: 5.0 PIP: 38 Tube Feeding Amount: 30 I&O: Intake and Output 11/14/18 11/15/18 19:00 07:00 Intake Total 2850.0 ml 2039.970 ml Output Total 300 ml 215 ml Balance 2550.0 ml 1824.970 ml Intake Free Water 200 ml 200 ml IV Total 2410.0 ml 1419.970 ml Tube Feeding 240 ml 120 ml Blood Product 300 ml Output Urine Total 300 ml 215 ml # Bowel Movements 1 2 CXR: worsening infiltrate Labs: Laboratory Tests Test 11/14/18 15:00 11/14/18 21:00 11/15/18 05:00 White Blood Count 17.8 K/UL (4.8-10.8) H 18.6 K/UL (4.8-10.8) H Red Blood Count 2.49 M/UL (4.70-6.10) L 2.95 M/UL (4.70-6.10) L Hemoglobin 7.2 G/DL (14.2-18.0) L 8.5 G/DL (14.2-18.0) L Hematocrit 22.2 % (42.0-52.0) L 26.4 % (42.0-52.0) L Mean Corpuscular Volume 89 FL (80-99) 90 FL (80-99) Mean Corpuscular Hemoglobin 28.8 PG (27.0-31.0) 28.7 PG (27.0-31.0) Mean Corpuscular Hemoglobin Concent 32.3 G/DL (32.0-36.0) 32.0 G/DL (32.0-36.0) Red Cell Distribution Width 15.1 % (11.6-14.8) H 15.6 % (11.6-14.8) H Platelet Count 271 K/UL (150-450) 285 K/UL (150-450) Mean Platelet Volume 7.2 FL (6.5-10.1) 7.0 FL (6.5-10.1) Neutrophils (%) (Auto) 90.3 % (45.0-75.0) H % (45.0-75.0) Lymphocytes (%) (Auto) 6.1 % (20.0-45.0) L % (20.0-45.0) Monocytes (%) (Auto) 3.2 % (1.0-10.0) % (1.0-10.0) Eosinophils (%) (Auto) 0.2 % (0.0-3.0) % (0.0-3.0) Basophils (%) (Auto) 0.1 % (0.0-2.0) % (0.0-2.0) Sodium Level 153 MMOL/L (136-145) H 152 MMOL/L (136-145) H Potassium Level 2.2 MMOL/L (3.5-5.1) *L 3.4 MMOL/L (3.5-5.1) #L Chloride Level 111 MMOL/L (98-107) H 111 MMOL/L (98-107) H Carbon Dioxide Level 36 MMOL/L (21-32) H 32 MMOL/L (21-32) Anion Gap 6 mmol/L (5-15) 9 mmol/L (5-15) Blood Urea Nitrogen 23 mg/dL (7-18) H 32 mg/dL (7-18) H Creatinine 1.6 MG/DL (0.55-1.30) H 2.5 MG/DL (0.55-1.30) #H Estimat Glomerular Filtration Rate 42.9 mL/min (>60) 25.7 mL/min (>60) Glucose Level 107 MG/DL (74-106) H 101 MG/DL (74-106) Calcium Level 6.3 MG/DL (8.5-10.1) L 6.7 MG/DL (8.5-10.1) L Magnesium Level 1.3 MG/DL (1.5-2.4) L 2.0 MG/DL (1.8-2.4) Total Bilirubin 0.8 MG/DL (0.2-1.0) 1.0 MG/DL (0.2-1.0) Aspartate Amino Transf (AST/SGOT) 21 U/L (15-37) 17 U/L (15-37) Alanine Aminotransferase (ALT/SGPT) 17 U/L (12-78) 16 U/L (12-78) Alkaline Phosphatase 82 U/L (46-116) 80 U/L (46-116) Troponin I 0.057 ng/mL (0.000-0.056) 0.063 ng/mL (0.000-0.056) 0.093 ng/mL (0.000-0.056) Total Protein 4.8 G/DL (6.4-8.2) L 5.8 G/DL (6.4-8.2) L Albumin 1.1 G/DL (3.4-5.0) L 1.1 G/DL (3.4-5.0) L Globulin 3.7 g/dL 4.7 g/dL Albumin/Globulin Ratio 0.3 (1.0-2.7) L 0.2 (1.0-2.7) L Differential Total Cells Counted 100 Neutrophils % (Manual) 89 % (45-75) H Lymphocytes % (Manual) 8 % (20-45) L Monocytes % (Manual) 1 % (1-10) Eosinophils % (Manual) 0 % (0-3) Basophils % (Manual) 0 % (0-2) Band Neutrophils 2 % (0-8) Platelet Estimate Adequate Platelet Morphology Normal Anisocytosis 1+ Prothrombin Time 12.0 SEC (9.30-11.50) H Prothromb Time International Ratio 1.1 (0.9-1.1) Activated Partial Thromboplast Time 32 SEC (23-33) Phosphorus Level 4.4 MG/DL (2.5-4.9) Bria Ward MD Nov 15, 2018 10:42
[2018-11-15] MEDS ORDERED: DOPamine 400mg/250ml 250 ML IV SCH (10:45)
--- NOTE | 2018-11-15 11:14 | NUR ---
CODE BLUE: See Code sheet which remains on paper.
--- NOTE | 2018-11-15 11:43 | NUR ---
Social Service Note Patient status post code blue. No family at the bedside. SW left a message for Lupillo Perez listed on face sheet [phone]. WILMAN left a message for the case management department at [facility] [phone] to obtain possible additional phone numbers and noted family involvement. SW completing skip trace to attempt to locate additional family members. Will continue to monitor.
--- NOTE | 2018-11-15 11:50 | NUR ---
CODE BLUE: See Code sheet which remains on paper.
--- NOTE | 2018-11-15 11:50 | NUR ---
NURSE NOTES: ROSC. CONNECTED BACK TO VENT WITH SAME VENT SETTINGS. CALLED AND LEFT A MESSAGE TO DENEEN RON. AWAITING FOR CALL BACK. WILL CONTINUE TO MONITOR.
--- NOTE | 2018-11-15 12:03 | Infectious Diseases Prog Note ---
Assessment/Plan Assessment/Plan The patient is a 68-year-old male with, s/p Code blue 11/14 Sepsis/septic shock, Sp Fever, ongoing Leukocytosis increased Aspiration pneumonia- worsening secretions and desaturation 11/14- r/o HAP 11/14 CXR: Interim worsening of bilateral diffuse and extensive interstitial and airspace infiltrates versus edema 11/07 SCx: MRSA, EColi (R amp, bactrim; otherwise S) Probable small bowel obstruction. CT shows ? small bowel obstructions/small bowel pneumatosis/bilateral lower lung infiltrate, right more than left. History of emesis and bacteremia in September 2018. CT of the chest showed extensive consolidation of right lung, cardiomegaly, possible small bowel obstruction, possible small bowel pneumatosis History of ventilator-dependent respiratory failure. Status post PEG. Status post trach. History of alcohol abuse. History of schizophrenia. PLAN: continue the patient on IV vancomycin # 09/20 Switch Zosyn #2 (abx #6) to Meropenem 11/14 SP Ceftriaxone #5 11/10 SP cefepime, amikacin # 3 Monitor cultures (blood, urine,). Monitor chest x-ray. Monitor CBC and CMP. f/u u/a w/ reflex, Bcx x2, sp cx ICU care Subjective Allergies: Coded Allergies: No Known Allergies (Unverified , 11/07/18) Subjective Tm 101.9 wbc increased Fio2 increased to 70% Objective Vital Signs Last 24 Hour Vital Signs Date Time Temp Pulse Resp B/P (MAP) Pulse Ox O2 Delivery O2 Flow Rate FiO2 11/15/18 11:14 106/53 11/15/18 11:04 92 30 70 11/15/18 09:14 88 28 70 11/15/18 08:37 96 106/53 11/15/18 08:00 98.1 96 25 106/53 (70) 100 11/15/18 08:00 Mechanical Ventilator 11/15/18 08:00 70 11/15/18 06:56 89 30 70 11/15/18 06:32 99 106/55 11/15/18 06:00 100.7 97 28 106/55 (72) 94 11/15/18 05:30 100.7 11/15/18 05:04 107 26 70 11/15/18 05:00 106 28 127/59 (81) 96 11/15/18 04:00 101.9 104 25 139/35 (69) 98 11/15/18 04:00 Mechanical Ventilator Mechanical Ventilator 11/15/18 04:00 70 11/15/18 04:00 104 11/15/18 03:21 91 24 70 11/15/18 03:00 102 25 133/25 (61) 97 11/15/18 02:00 98 25 128/33 (64) 98 11/15/18 01:00 99 25 134/23 (60) 94 11/15/18 00:55 94 25 70 11/15/18 00:00 99.0 87 25 119/37 (64) 97 11/15/18 00:00 70 11/15/18 00:00 87 11/15/18 00:00 Mechanical Ventilator 11/14/18 23:30 85 25 112/23 (52) 98 11/14/18 23:00 81 25 112/23 (52) 99 11/14/18 22:57 89 22 70 11/14/18 22:30 78 25 105/18 (47) 98 11/14/18 22:00 76 26 105/33 (57) 95 11/14/18 21:30 99.0 97 26 119/35 (63) 94 11/14/18 21:00 99 116/33 11/14/18 21:00 97 26 131/36 (67) 94 11/14/18 20:35 91 22 70 11/14/18 20:30 95 26 122/35 (64) 95 11/14/18 20:00 70 11/14/18 20:00 96 24 125/37 (66) 92 11/14/18 20:00 Mechanical Ventilator 11/14/18 20:00 96 11/14/18 19:30 99.0 95 28 114/42 (66) 95 11/14/18 19:13 95 23 70 11/14/18 19:00 97 28 111/45 (67) 99 11/14/18 18:00 92 30 119/48 (71) 99 11/14/18 17:00 94 31 127/46 (73) 99 11/14/18 16:39 94 30 70 11/14/18 16:00 100.0 89 24 114/42 (66) 98 11/14/18 16:00 90 11/14/18 16:00 Mechanical Ventilator 11/14/18 15:45 80 119/40 11/14/18 15:36 93 11/14/18 15:02 92 24 70 11/14/18 15:00 90 27 126/46 (72) 98 11/14/18 14:00 88 26 113/43 (66) 100 11/14/18 13:01 92 27 114/40 (64) 100 11/14/18 12:58 90 27 90 11/14/18 12:00 92 11/14/18 12:00 90 11/14/18 12:00 Mechanical Ventilator 11/14/18 12:00 90 27 111/39 (63) 100 Height (Feet): 5 Height (Inches): 8.00 Weight (Pounds): 152 Laboratory Tests Test 11/14/18 15:00 11/14/18 21:00 11/15/18 05:00 White Blood Count 17.8 K/UL (4.8-10.8) H 18.6 K/UL (4.8-10.8) H Red Blood Count 2.49 M/UL (4.70-6.10) L 2.95 M/UL (4.70-6.10) L Hemoglobin 7.2 G/DL (14.2-18.0) L 8.5 G/DL (14.2-18.0) L Hematocrit 22.2 % (42.0-52.0) L 26.4 % (42.0-52.0) L Mean Corpuscular Volume 89 FL (80-99) 90 FL (80-99) Mean Corpuscular Hemoglobin 28.8 PG (27.0-31.0) 28.7 PG (27.0-31.0) Mean Corpuscular Hemoglobin Concent 32.3 G/DL (32.0-36.0) 32.0 G/DL (32.0-36.0) Red Cell Distribution Width 15.1 % (11.6-14.8) H 15.6 % (11.6-14.8) H Platelet Count 271 K/UL (150-450) 285 K/UL (150-450) Mean Platelet Volume 7.2 FL (6.5-10.1) 7.0 FL (6.5-10.1) Neutrophils (%) (Auto) 90.3 % (45.0-75.0) H % (45.0-75.0) Lymphocytes (%) (Auto) 6.1 % (20.0-45.0) L % (20.0-45.0) Monocytes (%) (Auto) 3.2 % (1.0-10.0) % (1.0-10.0) Eosinophils (%) (Auto) 0.2 % (0.0-3.0) % (0.0-3.0) Basophils (%) (Auto) 0.1 % (0.0-2.0) % (0.0-2.0) Sodium Level 153 MMOL/L (136-145) H 152 MMOL/L (136-145) H Potassium Level 2.2 MMOL/L (3.5-5.1) *L 3.4 MMOL/L (3.5-5.1) #L Chloride Level 111 MMOL/L (98-107) H 111 MMOL/L (98-107) H Carbon Dioxide Level 36 MMOL/L (21-32) H 32 MMOL/L (21-32) Anion Gap 6 mmol/L (5-15) 9 mmol/L (5-15) Blood Urea Nitrogen 23 mg/dL (7-18) H 32 mg/dL (7-18) H Creatinine 1.6 MG/DL (0.55-1.30) H 2.5 MG/DL (0.55-1.30) #H Estimat Glomerular Filtration Rate 42.9 mL/min (>60) 25.7 mL/min (>60) Glucose Level 107 MG/DL (74-106) H 101 MG/DL (74-106) Calcium Level 6.3 MG/DL (8.5-10.1) L 6.7 MG/DL (8.5-10.1) L Magnesium Level 1.3 MG/DL (1.5-2.4) L 2.0 MG/DL (1.8-2.4) Total Bilirubin 0.8 MG/DL (0.2-1.0) 1.0 MG/DL (0.2-1.0) Aspartate Amino Transf (AST/SGOT) 21 U/L (15-37) 17 U/L (15-37) Alanine Aminotransferase (ALT/SGPT) 17 U/L (12-78) 16 U/L (12-78) Alkaline Phosphatase 82 U/L (46-116) 80 U/L (46-116) Troponin I 0.057 ng/mL (0.000-0.056) 0.063 ng/mL (0.000-0.056) 0.093 ng/mL (0.000-0.056) Total Protein 4.8 G/DL (6.4-8.2) L 5.8 G/DL (6.4-8.2) L Albumin 1.1 G/DL (3.4-5.0) L 1.1 G/DL (3.4-5.0) L Globulin 3.7 g/dL 4.7 g/dL Albumin/Globulin Ratio 0.3 (1.0-2.7) L 0.2 (1.0-2.7) L Differential Total Cells Counted 100 Neutrophils % (Manual) 89 % (45-75) H Lymphocytes % (Manual) 8 % (20-45) L Monocytes % (Manual) 1 % (1-10) Eosinophils % (Manual) 0 % (0-3) Basophils % (Manual) 0 % (0-2) Band Neutrophils 2 % (0-8) Platelet Estimate Adequate Platelet Morphology Normal Anisocytosis 1+ Prothrombin Time 12.0 SEC (9.30-11.50) H Prothromb Time International Ratio 1.1 (0.9-1.1) Activated Partial Thromboplast Time 32 SEC (23-33) Phosphorus Level 4.4 MG/DL (2.5-4.9) Current Medications Medications (Trade) Dose Ordered Sig/Ingrid Route PRN Reason Start Time Stop Time Status Last Admin Dose Admin Acetaminophen (Tylenol) 650 mg Q4H PRN ORAL Mild Pain/Temp > 100.5 11/14/18 13:15 12/14/18 01:14 11/15/18 04:59 Chlorhexidine Gluconate (Neisha-Hex 2%) 1 applic DAILY@1999 TOPIC 11/14/18 20:00 12/14/18 19:59 11/14/18 20:14 Dextrose (Dextrose 50%) 25 ml Q30M PRN IV Hypoglycemia 11/14/18 13:15 12/07/18 18:14 Dextrose (Dextrose 50%) 50 ml Q30M PRN IV Hypoglycemia 11/14/18 13:15 12/07/18 18:14 Diltiazem HCl (Cardizem) 90 mg BEFORE MEALS ORAL 11/14/18 16:30 12/11/18 16:29 11/15/18 06:32 Dopamine HCl/ Dextrose 250 ml @ 0 mls/hr Q24H IV 11/15/18 10:45 12/15/18 10:44 11/15/18 11:14 Heparin Sodium (Porcine) (Heparin 5000 units/ml) 5,000 units EVERY 12 HOURS SUBQ 11/14/18 21:00 12/07/18 20:59 11/15/18 08:38 Heparin Sodium/ Sodium Chloride (Heparin 1000 units/500ml Premix) 1,000 unit ONCE PRN IV picc line placement 11/14/18 13:00 11/17/18 12:59 Lidocaine HCl (Xylocaine 1% 30ml) 30 ml ONCE PRN INJ picc line placement 11/14/18 13:00 11/17/18 12:59 Metoprolol Tartrate (Lopressor) 100 mg Q12HR ORAL 11/14/18 21:00 12/09/18 22:14 11/15/18 08:37 Ondansetron HCl (Zofran) 4 mg Q6H PRN IVP Nausea & Vomiting 11/14/18 13:15 12/11/18 13:14 Pantoprazole (Protonix) 40 mg DAILY IV 11/15/18 09:00 12/08/18 08:59 11/15/18 08:36 Piperacillin Sod/ Tazobactam Sod 3.375 gm/Sodium Chloride 110 ml @ 27.5 mls/hr EVERY 8 HOURS IVPB 11/14/18 22:00 11/21/18 21:59 11/15/18 05:39 Polyethylene Glycol (Miralax) 17 gm DAILYPRN PRN ORAL Constipation 11/14/18 13:00 12/11/18 12:59 Potassium Chloride 100 ml @ 100 mls/hr Q1H IVPB 11/15/18 11:00 11/15/18 14:59 11/15/18 11:14 Sodium Chloride 1,000 ml @ 75 mls/hr [id number] IV 11/14/18 13:00 12/07/18 20:14 11/15/18 05:38 Vancomycin HCl (Vanco rx to dose) 1 ea DAILY PRN MISC . 11/15/18 09:00 12/11/18 20:14 Vancomycin HCl 750 mg/Sodium Chloride 275 ml @ 183.333 mls/hr Q12HR@0100,1300 IVPB 11/14/18 13:00 11/20/18 16:00 11/15/18 02:19 Libertad Dimas M.D. Nov 15, 2018 12:02
[2018-11-15] MEDS ORDERED: Calcium Chloride 10% 10ml carpuject IVP ONE ×2 (12:42→14:30)
[2018-11-15] MEDS ORDERED: Sodium Bicarbonate 50ml Carp ONE ×2 (12:42→14:30)
[2018-11-15] MEDS ORDERED: Atropine Inj 1mg/10ml Syr ONE (12:42)
--- NOTE | 2018-11-15 12:42 | NUR ---
CODE BLUE: See Code sheet which remains on paper.
--- NOTE | 2018-11-15 12:56 | Diagnostic Imaging Report ---
Indication: Abdominal pain Comparison: 11/10/2018 Single view of the abdomen obtained Findings: Bowel gas pattern is nonspecific. A distended loop of the colon probably sigmoid again noted in the mid abdomen. Hahn catheter gastrostomy tubes again noted. No mass, ectopic calcifications, or abnormal gas collections are identified. The bones are unremarkable. There is extensive reticular nodular opacification at the lung bases. Correlate with the chest x-ray examination Impression: Distended sigmoid colon. Follow up suggested. Lung infiltrates.
[2018-11-15] MEDS ORDERED: Meropenem 1 GM in NS 55 ML IVPB SCH (13:00)
--- NOTE | 2018-11-15 13:04 | Consultation ---
Consult Note Consult Note asked to eval for rising serum Cr patient admitted with sepsis 8 days ago Seen in ICU after a code blue , when patient was revived by the team after loosing pulse ! at this time unresponsive on pressors BP 40-50 syst Assessment/Plan Acute Renal Failure Shock Syndrom Sepsis / Pneumonia PEG Chronic trach- Vent Patient hemodynamically unstable expect further deterioration of renal parameters, unless hemodynamically turn around will re eval after stablized by data software engineer discussed with RN will hold hypotensive meds fluid challenge Jon Wilson MD Nov 15, 2018 13:04
--- NOTE | 2018-11-15 13:14 | Emergency Room Report ---
History of Present Illness General Chief Complaint: Altered Level of Consciousness Source: Medical Record, PMD Present Illness Allergies: Coded Allergies: No Known Allergies (Unverified , 11/07/18) Nursing Documentation-[facility] Past Medical History Deferred: Pt Cognitively Impaired Past Medical History: No History, Except For Hx Neurological Problems: Yes - AMS Physical Exam Vital Signs Date Time Temp Pulse Resp B/P (MAP) Pulse Ox O2 Delivery O2 Flow Rate FiO2 11/11/18 07:00 110 37 155/67 (96) 95 11/11/18 07:01 55 11/11/18 08:00 99.5 11/11/18 08:00 Mechanical Ventilator Procedures Critical Care Time Critical Care Time i. I feel this is a highly complex case requiring extensive working including EKG/Rhythm strip, Xray/CT/US, Blood/urine lab work, repeat exams while in ED, and administration of strong opiates/narcotics for pain control, admission to hospital or close patient follow up. Total time: 30 min bedside evaluation and treatment excludes procedures (EKG). Reason for critical care: cardiac arrest Possible complications: hypotension, hypertension, [place], shock, arrhythmias, metabolic acidosis, end organ damage, respiratory failure. Interventions: CPR, ACLS Course: I was called to the ICU to evaluate this patient. Patient became bradycardic and then lost pulse. Patient has trach. Patient septic on dopamine. After 2 rounds of CPR and epinephrine patient regained pulses. Prognosis is poor. Care endorsed back to admitting physician. Patient had a second round of asystole. Patient given 2 rounds of epinephrine and compressions and pulses returned. Consultations: nursing staff, EMS, family Performed by: Dr Estrada Tolerated well condition = critical j. because of unstable vital signs this patient had a condition that could potentially threaten life or limb. I feel this is a critical patient who required my full attention while patient was considered critical. Total Critical Care Time excluding procedures was greater than 35 minutes CPR/Code Blue CPR/Code Blue Narrative see code blue sheet for full narrative Medical Decision Making Diagnostic Impression: Primary Impression: Sepsis Qualified Codes: A41.9 - Sepsis, unspecified organism Additional Impressions: AMS (altered mental status) Qualified Codes: R41.82 - Altered mental status, unspecified Acidosis Anemia Respiratory failure Qualified Codes: J96.90 - Respiratory failure, unspecified, unspecified whether with hypoxia or hypercapnia Pneumonia ER Course I was called to the ICU to evaluate this patient. Patient became bradycardic and lost pulse. Patient currently on pressors and septic. Patient has trach and on ventilator. After 2 rounds of epinephrine and compressions patient regained pulse. Patient had a second episode of episode in which he lost pulses. 2 rounds of epinephrine and compressions were given before patient regained pulses. Discussed findings with admitting physicians and they understand patient's poor prognosis. Last Vital Signs Date Time Temp Pulse Resp B/P (MAP) Pulse Ox O2 Delivery O2 Flow Rate FiO2 11/15/18 12:54 58 20 70 11/15/18 12:51 133/22 11/15/18 11:00 89 11/15/18 08:00 98.1 11/15/18 08:00 Mechanical Ventilator Status: improved Disposition: ADMITTED INPATIENT Condition: Critical Referrals: Pierre Moreno MD (PCP) Jerry Estrada MD Nov 15, 2018 13:14
[2018-11-15] MEDS ORDERED: D5 1/2NS 1,000 ML IV SCH (13:15)
--- NOTE | 2018-11-15 13:23 | NUR ---
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 100.7 HR 58 RR 30 B/P 71/48 AC 12 TV 450 FIO2 100% PEEP 5 PH 6.85 PCO2 102.4 PO2 53.9 HCO3 17.8 O2 SAT 64.8 BE-15.6 WBC 18.6 NA 152 K 3.4 BUN 32 CR 2.5 IS: IVF D5NS @125ML/HR MEROPENEM IV LEVOPHED GTT DOPAMINE GTT PROTONIX IV HEPARIN SUBC ICU STATUS
--- NOTE | 2018-11-15 13:39 | NUR ---
NURSE NOTES: Lupillo Perez, pt's nephew called back. Explained to the nephew regarding pt's critical and unstable condition, including 3 incident of code blue so far today. He stated that he will speak with pt's sister and other family members regarding pt's code status and call back to ICU. Notified the primary nurse, veneer supervisor. and ER doctor.
--- NOTE | 2018-11-15 13:41 | NUR ---
CODE BLUE: See Code sheet which remains on paper.
[2018-11-15] MEDS ORDERED: DOBUTamine 250mg/250ml Premix IV SCH (14:00)
--- NOTE | 2018-11-15 14:30 | NUR ---
CODE BLUE: See Code sheet which remains on paper.
--- NOTE | 2018-11-15 15:38 | NUR ---
CODE BLUE: See Code sheet which remains on paper.
--- NOTE | 2018-11-15 15:49 | NUR ---
NURSE NOTES: AT 1548, FAMILY MEMBER ARRIVED, NEPHEW THE DECISION MAKER AND DECIDED TO STOP THE CODE. NOTED PEA. DISCONNECTED PATIENT FROM [facility] PER ER DOCTOR'S ORDER. WAS PRONOUNCED AT 1549.
[2018-11-15] MEDS ORDERED: Micafungin 100 MG in NS 110 ML IVPB SCH (16:00)
--- NOTE | 2018-11-15 16:13 | Emergency Room Report ---
History of Present Illness General Chief Complaint: Altered Level of Consciousness Source: Medical Record, PMD Present Illness HPI 68-year-old male admitted for sepsis, presents with PA, I was called to bedside to emergently code him at 1341. Please refer to [facility] Allergies: Coded Allergies: No Known Allergies (Unverified , 11/07/18) Patient History Limited by: medical condition - Patient actively coding Past Medical History: see triage record Reviewed Nursing Documentation: PMH: Agreed; PSxH: Agreed Nursing Documentation-PMH Past Medical History Deferred: Pt Cognitively Impaired Past Medical History: No History, Except For Hx Neurological Problems: Yes - AMS Review of Systems All Other Systems: limited - Patient actively coding Physical Exam Vital Signs Date Time Temp Pulse Resp B/P (MAP) Pulse Ox O2 Delivery O2 Flow Rate FiO2 11/11/18 07:00 110 37 155/67 (96) 95 11/11/18 07:01 55 11/11/18 08:00 99.5 11/11/18 08:00 Mechanical Ventilator Sp02 EP Interpretation: reviewed General Appearance: severe distress Eyes: bilateral eye other - Fixed dilated ENT: moist mucus membranes Neck: tracheotomy Respiratory: other - Crackles to bagging Cardiovascular #1: slow capillary refill, other - No pulse Gastrointestinal: soft, no mass Neuologic: Unresponsive Procedures Critical Care Time Critical Care Time Given the critical condition in which the patient arrived, the patient was immediately assessed by myself and the nurse, and cardiac monitoring initiated due to the potential for rapid decompensation of the patient's clinical condition. During the course of the patient's stay, I spent a considerable amount of time at the bedside performing serial re-evaluations of the patient's hemodynamic and clinical status because of the recognized potential threat to life or limb in this condition. I then had a chance to review not only all of the available current laboratory and radiographic studies obtained today, but I also reviewed old records available to me at the time. Additionally, any ancillary information available including dental office receptionist records were reviewed. Sequential vital signs were obtained. Critical Care time of 120 minutes was performed exclusive of billable procedures. CPR/Code Blue CPR/Code Blue Narrative CPR conducted at 1341 until 1353, another round of CPR 1430 until 1500, another round of CPR 1538 until 1549 when patient , please refer to code sheet for life-saving medications Medical Decision Making Diagnostic Impression: Primary Impression: Sepsis Qualified Codes: A41.9 - Sepsis, unspecified organism Additional Impressions: AMS (altered mental status) Qualified Codes: R41.82 - Altered mental status, unspecified Acidosis Anemia Respiratory failure Qualified Codes: J96.90 - Respiratory failure, unspecified, unspecified whether with hypoxia or hypercapnia Pneumonia ER Course 68-year-old male presents with PEA arrest, I was called at 1341 CPR was conducted, patient had ROSC at 1353, I was called up another time at 1430, patient had PEA arrest, ROSC was achieved at 1500, was speaking with family were on the way, they did not want to withdraw care until they got there. Was called up again at 1538 where he coded again time of 1549. Family was at bedside they wanted to withdraw care, counseled family. All drips were stopped. Multiple re-evaluations of the patient were required, for PEA arrest, multiple life-saving medications were given, patient required chart review as well as coordination of care as well as discussion with family and goals of care. Laboratory Tests Test 11/14/18 02:40 11/14/18 15:00 11/14/18 21:00 11/15/18 05:00 White Blood Count 16.2 K/UL (4.8-10.8) H 17.8 K/UL (4.8-10.8) H 18.6 K/UL (4.8-10.8) H Red Blood Count 2.77 M/UL (4.70-6.10) L 2.49 M/UL (4.70-6.10) L 2.95 M/UL (4.70-6.10) L Hemoglobin 7.9 G/DL (14.2-18.0) L 7.2 G/DL (14.2-18.0) L 8.5 G/DL (14.2-18.0) L Hematocrit 24.6 % (42.0-52.0) L 22.2 % (42.0-52.0) L 26.4 % (42.0-52.0) L Mean Corpuscular Volume 89 FL (80-99) 89 FL (80-99) 90 FL (80-99) Mean Corpuscular Hemoglobin 28.7 PG (27.0-31.0) 28.8 PG (27.0-31.0) 28.7 PG (27.0-31.0) Mean Corpuscular Hemoglobin Concent 32.3 G/DL (32.0-36.0) 32.3 G/DL (32.0-36.0) 32.0 G/DL (32.0-36.0) Red Cell Distribution Width 15.3 % (11.6-14.8) H 15.1 % (11.6-14.8) H 15.6 % (11.6-14.8) H Platelet Count 301 K/UL (150-450) 271 K/UL (150-450) 285 K/UL (150-450) Mean Platelet Volume 6.7 FL (6.5-10.1) 7.2 FL (6.5-10.1) 7.0 FL (6.5-10.1) Neutrophils (%) (Auto) % (45.0-75.0) 90.3 % (45.0-75.0) H % (45.0-75.0) Lymphocytes (%) (Auto) % (20.0-45.0) 6.1 % (20.0-45.0) L % (20.0-45.0) Monocytes (%) (Auto) % (1.0-10.0) 3.2 % (1.0-10.0) % (1.0-10.0) Eosinophils (%) (Auto) % (0.0-3.0) 0.2 % (0.0-3.0) % (0.0-3.0) Basophils (%) (Auto) % (0.0-2.0) 0.1 % (0.0-2.0) % (0.0-2.0) Differential Total Cells Counted 100 100 Neutrophils % (Manual) 96 % (45-75) H 89 % (45-75) H Lymphocytes % (Manual) 2 % (20-45) L 8 % (20-45) L Monocytes % (Manual) 2 % (1-10) 1 % (1-10) Eosinophils % (Manual) 0 % (0-3) 0 % (0-3) Basophils % (Manual) 0 % (0-2) 0 % (0-2) Band Neutrophils 0 % (0-8) 2 % (0-8) Platelet Estimate Adequate Adequate Platelet Morphology Normal Normal Sodium Level 152 MMOL/L (136-145) H 153 MMOL/L (136-145) H 152 MMOL/L (136-145) H Potassium Level 1.7 MMOL/L (3.5-5.1) *L 2.2 MMOL/L (3.5-5.1) *L 3.4 MMOL/L (3.5-5.1) #L Chloride Level 106 MMOL/L (98-107) 111 MMOL/L (98-107) H 111 MMOL/L (98-107) H Carbon Dioxide Level 39 MMOL/L (21-32) H 36 MMOL/L (21-32) H 32 MMOL/L (21-32) Anion Gap 6 mmol/L (5-15) 6 mmol/L (5-15) 9 mmol/L (5-15) Blood Urea Nitrogen 17 mg/dL (7-18) 23 mg/dL (7-18) H 32 mg/dL (7-18) H Creatinine 1.1 MG/DL (0.55-1.30) 1.6 MG/DL (0.55-1.30) H 2.5 MG/DL (0.55-1.30) #H Estimate Glomerular Filtration Rate > 60 mL/min (>60) 42.9 mL/min (>60) 25.7 mL/min (>60) Glucose Level 108 MG/DL (74-106) H 107 MG/DL (74-106) H 101 MG/DL (74-106) Calcium Level 7.0 MG/DL (8.5-10.1) L 6.3 MG/DL (8.5-10.1) L 6.7 MG/DL (8.5-10.1) L Total Bilirubin 0.8 MG/DL (0.2-1.0) 0.8 MG/DL (0.2-1.0) 1.0 MG/DL (0.2-1.0) Aspartate Amino Transferase (AST) 20 U/L (15-37) 21 U/L (15-37) 17 U/L (15-37) Alanine Aminotransferase (ALT) 15 U/L (12-78) 17 U/L (12-78) 16 U/L (12-78) Alkaline Phosphatase 84 U/L (46-116) 82 U/L (46-116) 80 U/L (46-116) Total Protein 5.9 G/DL (6.4-8.2) L 4.8 G/DL (6.4-8.2) L 5.8 G/DL (6.4-8.2) L Albumin 1.3 G/DL (3.4-5.0) L 1.1 G/DL (3.4-5.0) L 1.1 G/DL (3.4-5.0) L Globulin 4.6 g/dL 3.7 g/dL 4.7 g/dL Albumin/Globulin Ratio 0.3 (1.0-2.7) L 0.3 (1.0-2.7) L 0.2 (1.0-2.7) L Magnesium Level 1.3 MG/DL (1.5-2.4) L 2.0 MG/DL (1.8-2.4) Troponin I 0.057 ng/mL (0.000-0.056) 0.063 ng/mL (0.000-0.056) 0.093 ng/mL (0.000-0.056) Anisocytosis 1+ Prothrombin Time 12.0 SEC (9.30-11.50) H Prothrombin Time INR 1.1 (0.9-1.1) PTT 32 SEC (23-33) Phosphorus Level 4.4 MG/DL (2.5-4.9) Test 11/15/18 12:26 Arterial Blood pH 6.857 (7.350-7.450) Arterial Blood Partial Pressure CO2 102.4 mmHg (35.0-45.0) *H Arterial Blood Partial Pressure O2 53.9 mmHg (75.0-100.0) L Arterial Blood HCO3 17.8 mmol/L (22.0-26.0) *L Arterial Blood Oxygen Saturation 64.8 % (95-100) *L Arterial Blood Base Excess -15.6 (-2-2) *L Pawan Test Positive Last Vital Signs Date Time Temp Pulse Resp B/P (MAP) Pulse Ox O2 Delivery O2 Flow Rate FiO2 11/15/18 15:03 26 34 100 11/15/18 14:06 101/12 11/15/18 11:00 89 11/15/18 08:00 98.1 11/15/18 08:00 Mechanical Ventilator Disposition: ADMITTED INPATIENT Condition: Referrals: Pierre Moreno MD (PCP) Suman Lopez MD Nov 15, 2018 16:13
--- NOTE | 2018-11-15 16:36 | NUR ---
*-* INSURANCE *-* ALL CLINICALS AND REVIEWS HAVE BEEN FAXED TO: [facility] REF# [id number] NURY:FINN P: [phone] F: [phone]
--- NOTE | 2018-11-15 16:39 | NUR ---
NURSE NOTES: CALLED AND SPOKE WITH AGENT FROM [facility] (SEE PAPER CHART). INFORMED DR SHELLEY AND SPOKE WITH DR CAROLINE VELEZ.
[2018-11-15] MEDS ORDERED: Tubing IV Secondary IV ONE ×2 (16:48→19:57)
[2018-11-15] MEDS ORDERED: Tubing IV Blood Pump IV ONE (16:48)
[2018-11-15] MEDS ORDERED: NS 275ml ONE ×3 (16:48→19:57)
--- NOTE | 2018-11-15 18:45 | NUR ---
HAND-OFF: PATIENT'S FAMILY LEFT AROUND 1845. POST MORTEM CARE DONE. ENDORSED TO Kerry TATUM. :
--- NOTE | 2018-11-15 19:00 | NUR ---
NURSE NOTES: Received SBAR from [facility]. Patient received, s/p code blue. Patient is at this time. Post modum care has been already done and patient is in white bag already. Will send body to [facility]. Family has already seen patient and left.
[2018-11-15] MEDS ORDERED: D5 1/2NS 1000ml IV ONE ×2 (19:57)
[2018-11-15] MEDS ORDERED: D5NS 1000ml IV ONE (19:57)
--- NOTE | 2018-11-15 21:10 | Surgery Progress Note ---
Surgery Progress Note Subjective Symptoms: worse Additional Comments patient deteriorating coded in ICU today was able to resuscitate during 3rd code when I was present unfortunately coded again and passed Objective Last 24 Hour Vital Signs Date Time Temp Pulse Resp B/P (MAP) Pulse Ox O2 Delivery O2 Flow Rate FiO2 11/15/18 15:15 81 22 50/36 (41) 56 11/15/18 15:03 26 34 100 11/15/18 15:00 91 22 79/39 (52) 83 11/15/18 15:00 59/21 11/15/18 15:00 59/21 11/15/18 14:15 83 26 71/19 (36) 88 11/15/18 14:06 101/12 11/15/18 14:00 7111/15/18 14:00 7111/15/18 14:00 96 23 118/17 (50) 88 11/15/18 13:30 64 22 59/21 (34) 83 11/15/18 13:17 91 26 100 11/15/18 13:15 91 27 59/21 (34) 78 11/15/18 13:00 91 27 59/21 (34) 78 11/15/18 13:00 59/21 11/15/18 13:00 59/21 11/15/18 12:54 58 20 70 11/15/18 12:51 133/22 11/15/18 12:46 102 20 133/22 (59) 93 11/15/18 12:30 72 16 36/20 (25) 75 11/15/18 12:15 54 19 41/25 (30) 65 11/15/18 12:00 99.6 61 21 71/38 (49) 71 11/15/18 12:00 71/48 11/15/18 12:00 71/38 11/15/18 12:00 100 11/15/18 12:00 Mechanical Ventilator 11/15/18 11:45 77 18 43/13 (23) 77 11/15/18 11:30 92 71/48 11/15/18 11:30 64 19 131/88 (102) 59 11/15/18 11:14 106/53 11/15/18 11:04 92 30 70 11/15/18 11:00 60 13 113/64 (80) 89 10/9/19 10:45 62 0 115/49 (71) 91 11/15/18 10:30 62 26 90/34 (52) 89 11/15/18 10:15 64 20 50/29 (36) 93 11/15/18 10:00 69 22 76/38 (51) 97 11/15/18 09:14 88 28 70 11/15/18 09:00 65 24 120/90 (100) 100 11/15/18 08:37 96 106/53 11/15/18 08:00 90 11/15/18 08:00 98.1 96 25 106/53 (70) 100 11/15/18 08:00 Mechanical Ventilator 11/15/18 08:00 70 11/15/18 06:56 89 30 70 11/15/18 06:32 99 106/55 11/15/18 06:00 100.7 97 28 106/55 (72) 94 11/15/18 05:30 100.7 11/15/18 05:04 107 26 70 11/15/18 05:00 106 28 127/59 (81) 96 11/15/18 04:00 101.9 104 25 139/35 (69) 98 11/15/18 04:00 Mechanical Ventilator Mechanical Ventilator 11/15/18 04:00 70 11/15/18 04:00 104 11/15/18 03:21 91 24 70 11/15/18 03:00 102 25 133/25 (61) 97 11/15/18 02:00 98 25 128/33 (64) 98 11/15/18 01:00 99 25 134/23 (60) 94 11/15/18 00:55 94 25 70 11/15/18 00:00 99.0 87 25 119/37 (64) 97 11/15/18 00:00 70 11/15/18 00:00 87 11/15/18 00:00 Mechanical Ventilator 11/14/18 23:30 85 25 112/23 (52) 98 11/14/18 23:00 81 25 112/23 (52) 99 11/14/18 22:57 89 22 70 11/14/18 22:30 78 25 105/18 (47) 98 11/14/18 22:00 76 26 105/33 (57) 95 11/14/18 21:30 99.0 97 26 119/35 (63) 94 I&O Intake and Output 11/14/18 11/15/18 19:00 07:00 Intake Total 2850.0 ml 2114.970 ml Output Total 300 ml 215 ml Balance 2550.0 ml 1899.970 ml Intake Free Water 200 ml 200 ml IV Total 2410.0 ml 1494.970 ml Tube Feeding 240 ml 120 ml Blood Product 300 ml Output Urine Total 300 ml 215 ml # Bowel Movements 1 2 Dressing: other Wound: other Drains: other Cardiovascular: other Respiratory: other Abdomen: other Extremities: other Laboratory Tests Test 11/15/18 05:00 11/15/18 12:26 White Blood Count 18.6 K/UL (4.8-10.8) H Red Blood Count 2.95 M/UL (4.70-6.10) L Hemoglobin 8.5 G/DL (14.2-18.0) L Hematocrit 26.4 % (42.0-52.0) L Mean Corpuscular Volume 90 FL (80-99) Mean Corpuscular Hemoglobin 28.7 PG (27.0-31.0) Mean Corpuscular Hemoglobin Concent 32.0 G/DL (32.0-36.0) Red Cell Distribution Width 15.6 % (11.6-14.8) H Platelet Count 285 K/UL (150-450) Mean Platelet Volume 7.0 FL (6.5-10.1) Neutrophils (%) (Auto) % (45.0-75.0) Lymphocytes (%) (Auto) % (20.0-45.0) Monocytes (%) (Auto) % (1.0-10.0) Eosinophils (%) (Auto) % (0.0-3.0) Basophils (%) (Auto) % (0.0-2.0) Differential Total Cells Counted 100 Neutrophils % (Manual) 89 % (45-75) H Lymphocytes % (Manual) 8 % (20-45) L Monocytes % (Manual) 1 % (1-10) Eosinophils % (Manual) 0 % (0-3) Basophils % (Manual) 0 % (0-2) Band Neutrophils 2 % (0-8) Platelet Estimate Adequate Platelet Morphology Normal Anisocytosis 1+ Prothrombin Time 12.0 SEC (9.30-11.50) H Prothromb Time International Ratio 1.1 (0.9-1.1) Activated Partial Thromboplast Time 32 SEC (23-33) Sodium Level 152 MMOL/L (136-145) H Potassium Level 3.4 MMOL/L (3.5-5.1) #L Chloride Level 111 MMOL/L (98-107) H Carbon Dioxide Level 32 MMOL/L (21-32) Anion Gap 9 mmol/L (5-15) Blood Urea Nitrogen 32 mg/dL (7-18) H Creatinine 2.5 MG/DL (0.55-1.30) #H Estimat Glomerular Filtration Rate 25.7 mL/min (>60) Glucose Level 101 MG/DL (74-106) Calcium Level 6.7 MG/DL (8.5-10.1) L Phosphorus Level 4.4 MG/DL (2.5-4.9) Magnesium Level 2.0 MG/DL (1.8-2.4) Total Bilirubin 1.0 MG/DL (0.2-1.0) Aspartate Amino Transf (AST/SGOT) 17 U/L (15-37) Alanine Aminotransferase (ALT/SGPT) 16 U/L (12-78) Alkaline Phosphatase 80 U/L (46-116) Troponin I 0.093 ng/mL (0.000-0.056) Total Protein 5.8 G/DL (6.4-8.2) L Albumin 1.1 G/DL (3.4-5.0) L Globulin 4.7 g/dL Albumin/Globulin Ratio 0.2 (1.0-2.7) L Arterial Blood pH 6.857 (7.350-7.450) Arterial Blood Partial Pressure CO2 102.4 mmHg (35.0-45.0) *H Arterial Blood Partial Pressure O2 53.9 mmHg (75.0-100.0) L Arterial Blood HCO3 17.8 mmol/L (22.0-26.0) *L Arterial Blood Oxygen Saturation 64.8 % (95-100) *L Arterial Blood Base Excess -15.6 (-2-2) *L Pawan Test Positive Plan Problems: (1) Abdominal distension Assessment & Plan: abd distention possible sbo CT noted as below IV fluids IV Abx resuscitation AM labs CXR worsening KUB noted and stable g tube to suction will follow with recs (2) Sepsis Assessment & Plan: leukocytosis anemia lactic acidosis abnormal labs resp depression abd distention IV fluids IV Abx AM labs PICC will follow with recs thank you Chest: The chest demonstrates extensive dense consolidation of the entire right lung. There is also atelectasis of much of the right lower lobe. There is a small amount of pleural fluid on the right. Extensive although less severe interstitial and airspace opacities are also seen in the left upper and lower lobes, with some areas of consolidated lung, interstitial edema and groundglass parenchymal opacity elsewhere. There is trace pleural fluid on the left. The heart is mildly enlarged. There is a small amount of pericardial effusion laterally. No mediastinal or hilar mass or adenopathy. There is a tracheostomy. The included thyroid is unremarkable. The esophagus is unremarkable. The bones are unremarkable. Abdomen pelvis:There is diffuse distention of the small bowel which is diffusely fluid-filled. Distention extends throughout most of length of the small bowel. The transition point appears to be at the level of the distal ileum in the anterior left lower quadrant. Transition point is somewhat gradual. Circumferential beads of gas in the left upper quadrant small bowel loops raise suspicion for small bowel pneumatosis. However, this is not definitely evident in the portions of small bowel that are likely filled with gas, so could represent so-called pseudopneumatosis related to gas between the bowel wall and small bowel contents. There is no bowel wall thickening demonstrated. The proximal mesenteric vessels are patent, as are the superior mesenteric vein and splenic vein. There is a gastrostomy in place. The cecum is distended. The appendix is normal. There is distention of the rectum with feces and mild wall thickening of the rectum. There is trace free fluid in Morison's pouch. No free intraperitoneal gas. The liver, gallbladder, bile ducts, pancreas, spleen, adrenals are unremarkable. Subcentimeter low-attenuation lesions in the kidneys most likely represent cysts The bones demonstrate mild degenerative spondylosis changes. IMPRESSION: Chest: Extensive consolidation of the right lung, most likely pneumonia. There is also a component of atelectasis. Less extensive but still severe parenchymal opacities on the left, most likely represent pneumonia but could also represent pulmonary edema Small bilateral pleural effusions Cardiomegaly Tracheostomy Abdomen pelvis: Diffuse distention of the small bowel which is diffusely fluid-filled. There is tapering to normal caliber distal ileum. There is also some distention of the cecum. Findings may be on a functional basis, but the possibility of distal small bowel obstruction should also be considered. There is also evidence of small bowel pneumatosis versus pseudopneumatosis. There is no evidence of proximal arterial insufficiency or of mesenteric venous insufficiency Distended rectum with feces, mild wall thickening of the rectum could indicate stercoral proctitis Trace free fluid in Morison's pouch Gastrostomy Incidental finding of degenerative spondylosis Kevin Conn Nov 15, 2018 21:10
--- NOTE | 2018-11-16 09:45 | Discharge Summary ---
Discharge Summary Discharge Summary _ SUMMARY DATE OF ADMISSION: 11/07/2018 DATE OF EXPIRATION: 11/15/2018 REASON FOR ADMISSION: 68 years old male with past medical history of chronic respiratory failure, ventilator dependent, status post tracheostomy, dysphagia, status post G-tube, alcohol abuse, anemia, [facility] . Patient apparently was desaturated on ventilator with pulse oximetry being in mid 80s. He also had episode of vomiting and appeared to have distended abdomen. Patient by himself was nonverbal and unable to provide any history. Nursing staff also noted change in mentation . upon evaluation vital signs revealed tachycardia with heart rate of 116 , blood pressure 72/42, pulse oximetry was 72% , tachypnea with respiratory rate 28. The physical examination revealed coarse rhonchi in all lung turner, tachypnea , tachycardia, distended abdomen. Laboratory work-up revealed leukocytosis with WBC 14.7, anemia with hemoglobin 9.7, hematocrit 30.5. Platelet count 501. BUN 21, creatinine 1.2. Calcium 8.1. Phosphorus 5.6 , potassium 4.4. Troponin negative .CK 21. EKG revealed sinus tachycardia, no acute ischemic changes. Chest x-ray demonstrated extensive right lung infiltrate, extensive right lung volume loss. Left lung interstitial disease. Cardiomegaly. Tracheostomy. Prominent abdominal bowel gas. CT of the chest , abdomen , and pelvis revealed extensive consolidation of the right lung, most likely pneumonia. There was also a component of atelectasis. Less extensive , but still severe parenchymal opacities on the left, most likely representing pneumonia, but could also represent pulmonary edema. Diffuse distention of the small bowels, which was diffusely fluid-filled. There was tapering to normal caliber distal ileum. There was also some distention of the cecum. Findings probably were on a functional basis, but the possibility of distal small bowel obstruction should also be considered. There was also evidence of small bowel pneumatosis versus pseudo pneumatosis. There was no evidence of proximal arterial insufficiency or of mesenteric venous insufficiency. Distended rectum with feces, mild wall thickening of the rectum could indicate stercoral proctitis. CT of the head revealed chronic and age-related changes. 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 High left parietal skin thickening. Negative for acute intracranial bleeding or mass-effect. ABG showed severe respiratory acidosis with pH 7.095 , PCO2 118 , O2 sat 86 % and it was done on 100% FiO2 . Urinalysis revealed +1 leukocyte esterase, no pyuria, no bacteria, +3 protein. Septic protocol initiated ; patient pancultured , given fluids and started on empiric IV antibiotics. Patient required pressors and undergone placement of right subclavian central venous catheter by surgeon. Patient started on Levophed and subsequently admitted to ICU for further management. CONSULTANTS: wood preserving plant laborer Dr. Roman pulmonary Dr. Ward ID specialist Dr. Quarles embedded software architect Dr. Wilson surgery [facility] COURSE: Patient admitted to ICU. Hemodynamic status was closely monitored with goal to keep mean arterial blood pressure above 65. Patient initially was on Levophed, which subsequently was weaned down. Ventilator support provided. Ventilator settings titrated to keep pulse oximetry above 92%. Patient was followed -up with ABG and chest x-ray. Extensive pulmonary toil provided. Patient started on empiric antibiotics as per ID specialist recommendation. Blood cultures were negative. Urine culture were negative. Sputum culture revealed E. coli and MRSA. Repeated blood culture were negative as well. Venous duplex bilateral lower extremity revealed no evidence of acute DVT. DVT and GI prophylaxis provided. Bowel regimen instituted. Electrolytes were closely monitored and corrected as needed. Hemoglobin and hematocrit were closely monitored with goal to keep hemoglobin above 7. Stool for occult blood was negative. Patient received transfusion of 1 unit of packed red blood cells while in the hospital. Patient condition was deteriorating. Patient had persistent leukocytosis and ongoing fevers. Patient developed renal failure with creatinine jumping from normal to 1.6 on , sodium 153, potassium 2.2. Calcium 6.3. Antibiotic regimen optimized as per ID specialist recommendations . Patient was resuscitated after 2 codes due to asystole on 11/14 and 11/15. Overall condition remained poor. Third code was called on at 13:41. Patient was resuscitated. Emergency department doctor spoke with the family. Family was on the way to the hospital and did not want to withdraw any care. The last code was called at 15:38 on 11/15/2018. At this time, unfortunately , all resuscitative efforts appeared to be futile. Patient was pronounced at 15:49 on 11/15/2018. Cause of : cardiopulmonary arrest FINAL DIAGNOSES: Status post cardiopulmonary arrest x 4 Sepsis with septic shock Aspiration pneumonia Acute on chronic hypoxemic hypercapnic respiratory failure Acute renal failure Dysphagia, feeding by G-tube. VDRF /tracheostomy status Altered mental status( likely due to septic shock) History of hypertension History of alcohol abuse History of GI bleeding Hypernatremia Hypokalemia I have been assigned to dictate discharge summary for this account. I was not involved in the patient's management. Yuli Reid NP Nov 16, 2018 09:45
--- NOTE | 2018-11-17 15:29 | Cardiology Report ---
APPROVED REPORT EKG Measurement Heart [id number] CT [id number] Sinus tachycardia Possible Left atrial enlargement Borderline ECG
--- NOTE | 2018-11-20 16:39 | NUR ---
*-* INSURANCE *-* DISCHARGE SUMMARY HAS FAXED TO: [facility] REF# [id number] NURY:FINN P: [phone] F: [phone]
== END 2018-11-15 19:58 | disposition expired | DRG 870 ==
LOC: EDBD 12:05 → EMR 13:00 → ICU 13:22 → EDBEDREQ 15:42 → ICU 17:15 → 2W 11-11 19:40 → ICU 11-14 08:53
PROC: 5A1955Z Respiratory Ventilation, Greater than 96 Consecutive Hours (ICD-10-PCS; principal; 2018-11-07)
PROC: 5A12012 Performance of Cardiac Output, Single, Manual (ICD-10-PCS; principal; 2018-11-07)
PROC: 30233N1 Transfusion of Nonautologous Red Blood Cells into Peripheral Vein, Percutaneous Approach (ICD-10-PCS; 2018-11-14)
PROC: 02HV33Z Insertion of Infusion Device into Superior Vena Cava, Percutaneous Approach (ICD-10-PCS; 2018-11-14)
PROC: 5A12012 Performance of Cardiac Output, Single, Manual (ICD-10-PCS; 2018-11-15)
DX: A41.9 Sepsis, unspecified organism (principal); R65.21 Severe sepsis with septic shock; J69.0 Pneumonitis due to inhalation of food and vomit; J96.22 Acute and chronic respiratory failure with hypercapnia; J96.21 Acute and chronic respiratory failure with hypoxia; J98.11 Atelectasis; J90 Pleural effusion, not elsewhere classified; Z99.11 Dependence on respirator [ventilator] status; K56.609 Unspecified intestinal obstruction, unspecified as to partial versus complete obstruction; Z43.1 Encounter for attention to gastrostomy; E87.0 Hyperosmolality and hypernatremia; Z51.5 Encounter for palliative care; I46.9 Cardiac arrest, cause unspecified; E86.0 Dehydration; R14.0 Abdominal distension (gaseous); J44.9 Chronic obstructive pulmonary disease, unspecified; Z87.891 Personal history of nicotine dependence; Z43.0 Encounter for attention to tracheostomy; I10 Essential (primary) hypertension; F10.11 Alcohol abuse, in remission; E87.6 Hypokalemia; D64.9 Anemia, unspecified
CPT/HCPCS: 36415; 36569; 36600; 70450; 71045; 71260; 74018; 74177; 76937; 80053; 80069; 80150; 80202; 81003; 82270; 82378; 82550; 82553; 82607; 82746; 82803; 82962; 83540; 83550; 83605; 83615; 83735; 83880; 84100; 84484; 85007; 85025; 85044; 85060; 85610; 85651; 85730; 86140; 86850; 86900; 86901; 86920; 87040; 87070; 87086; 87181; 87205; 92950; 93005; 93970; 94002; 94003; 96361; 96365; 96368; 96375; 99291; J0171; J8499